=== PATIENT | male | born 1985 | race Caucasian/White ===

== ENCOUNTER 2018-03-31 12:08 | Day surgery (SDC) | payer OTHER ==
[~2018-03-31 12:08] MED LIST: Buffered Lidocaine 0.9% SYRIN* 5 ML/SYR SYRINGE INTRADERM ONE; Famotidine IV* 10 MG/ML 2 ML (20 mg) IV ONE
[2018-03-31] MEDS ORDERED: ceFAZolin 2 GM PREMIX (*) 2 GM/50 ML BAG IVPB ONE (12:11)
[2018-03-31] MEDS ORDERED: ceFAZolin 1 GM ADVAN(*) 1 GM ADDV.VIAL IVPB ONE (12:11)
[2018-03-31] MEDS ORDERED: Famotidine IV* 10 MG/ML 2 ML (20 mg) ONE (12:11)
[2018-03-31] MEDS ORDERED: Insulin LISPRO* 1 UNITS UNIT SUBCUT ONE (12:57)
[2018-03-31] MEDS ORDERED: fentaNYL* 50 MCG/ML 5 ML VIAL (250 MCG VIAL) ONE (13:19)
[2018-03-31] MEDS ORDERED: Midazolam* 1 MG/ML 5 ML VIAL (5 MG) ONE (13:20)
[2018-03-31] MEDS ORDERED: ROPIVACAINE 5 MG/ML 30 ML BTL (0.5%) ONE (13:50)
[2018-03-31] MEDS ORDERED: HYDROcodone/ACETAMIN 5-325 MG* 1 TAB PO PRN (14:02)
[2018-03-31] MEDS ORDERED: fentaNYL* 50 MCG/ML 2 ML VIAL (100 MCG VIAL) IV PRN (14:02)
[2018-03-31] MEDS ORDERED: Naloxone* 0.4 MG/ML 1 ML VIAL IV PRN (14:02)
[2018-03-31] MEDS ORDERED: oxyCODONE/Acetamin 5/325 MG* TAB PO PRN (14:02)
[2018-03-31] MEDS ORDERED: DiMENhydriNATE IV* 50 MG/ML VIAL IV PUSH PRN (14:02)
[2018-03-31] MEDS ORDERED: Propofol* 10 MG/ML 20 ML BTL IV PUSH ONE (15:05)
[2018-03-31] MEDS ORDERED: Lidocaine 2% PF * 5 ML VIAL ONE (15:05)
[2018-03-31 17:24] VITALS: BP 141/91
--- NOTE | 2018-04-01 04:06 | OP ---
DATE OF OPERATION: 03/31/18 - SDS DATE OF : 87 ATTENDING SURGEON: Henry Meier MD PLANT MAINTENANCE TECHNICIAN: Daisy Jesus PA-C PREOPERATIVE DIAGNOSIS: Open infected and partially gangrenous great toe ulcer. POSTOPERATIVE DIAGNOSIS: Open infected and partially gangrenous great toe ulcer. OPERATIVE PROCEDURE: Partial amputation right great toe. DESCRIPTION OF PROCEDURE: Malik was brought to the operating room with ankle Esmarch placed. We numbed up the area of the great toe and made a transverse elliptical incision at the proximal phalanx midportion. We dissected proximally , subcutaneously, and divided the proximal phalanx in its midportion with a microsagittal saw. Cultures were taken at that time we disarticulated the distal portion. We irrigated thoroughly, dropped the tourniquet, and obtained local hemostasis. We then closed dorsal to plantar flaps with 2-0 Vicryl and 3- 0 nylon for the skin and a compression dressing applied. [id number]/[facility] #: [id number] MTDD
== END 2018-03-31 17:40 | disposition home or self-care (01) ==
LOC: OR 12:08
PROVIDERS: ATTEND Orthopaedic Surgery
DX: E11.52 Type 2 diabetes mellitus with diabetic peripheral angiopathy with gangrene (principal); M86.671 Other chronic osteomyelitis, right ankle and foot; Z79.4 Long term (current) use of insulin; I10 Essential (primary) hypertension; K21.9 Gastro-esophageal reflux disease without esophagitis; E78.00 Pure hypercholesterolemia, unspecified; F32.9 Major depressive disorder, single episode, unspecified
CPT/HCPCS: 87070; 87073; 87077; 87205; 88305; 88311; J0690; J2250; J2704; J2795; J3010

== ENCOUNTER 2019-05-13 10:11 | Inpatient (IN) | payer OTHER ==
[2019-05-13] MEDS ORDERED: Ondansetron ODT TAB* 4 MG PO PRN (11:06)
[2019-05-13] MEDS ORDERED: Morphine INJ* 10 MG/ML 1 ML CARPUJECT IV PRN (11:06)
[2019-05-13] MEDS ORDERED: oxyCODONE/Acetamin 5/325 MG* TAB PO PRN (11:06)
[2019-05-13] MEDS ORDERED: diPHENhydraMINE IV* 50 MG/ML 1 ml VIAL (BENADRYL) IV PRN (11:06)
[2019-05-13] MEDS ORDERED: diPHENhydraMINE PO* 25 MG PO PRN (11:06)
[2019-05-13] MEDS ORDERED: Lactated Ringers 1000 ML Bag* 1,000 ML IV SCH (12:00)
--- OUTSIDE RECORDS SUMMARY | 2019-05-13 12:28 | XMS REPORT | Continuity of Care Document ---
:1985 External Reference #:[id number] Author Name Henry Meier M.D. 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 Onset: 07/24/2012 Social History Type Date Description Comments Sex Unknown Tobacco Use Start: Unknown Never Smoked Cigarettes Tobacco Use Start: Unknown Never Smoked Cigars Tobacco Use Start: Unknown Never Smoked A Pipe Smokeless Tobacco Never Used Smokeless Tobacco ETOH Use Denies alcohol use Tobacco Use Start: Unknown Patient has never smoked Recreational Drug Use Denies Drug Use Smoking Status Reviewed: 04/01/19 Patient has never smoked Exercise Type/Frequency Little walking Allergies, Adverse Reactions, Alerts Active Allergies Reaction Severity Comments Date Sulfa rash 07/24/2012 Medications Active Medications SIG Qnty Indications Ordering Date Provider [place] 1 by mouth every 8 42tabs Henry Meier, 12/31/2018 5-325mg hours as needed for M.D. Tablets pain Fluoxetine HCL 1 po qd 30caps Unknown 20mg Capsules Lisinopril 1 po qd 90tabs Eladio Rose, 20mg PA Tablets Simvastatin 1 po qd 90tabs Eladio Rose, 20mg PA Tablets Omeprazole 1 po qd 90caps Eladio Rose, 20mg PA Capsules DR Jenni Dillard daily 3Months Unknown 80U Solution Basaglar Kwikpen inject 30 units Unknown subcutaneously before 100Unit/ML meals Solution Pen-Inject Ibuprofen 200 2 tabs by mouth every Unknown 6 hours as needed for 200mg Tablets pain. Tylenol Extra 2 tabs by mouth every Unknown Strength 6 hours as needed 500mg Tablets Immunizations Description No Information Available Vital Signs Date Vital Result Comment 04/01/2019 12:50pm Height 69 inches 5'9" Weight 280.00 lb Heart Rate 99 /min BP Systolic Sitting 114 mmHg BP Diastolic Sitting 70 mmHg Respiratory Rate 20 /min Pain Level 6 O2 % BldC Oximetry 96 % BMI (Body Mass Index) 41.3 kg/m2 02/25/2019 12:56pm Height 69 inches 5'9" Weight 282.00 lb Heart Rate 101 /min BP Systolic Sitting 118 mmHg BP Diastolic Sitting 76 mmHg Respiratory Rate 18 /min Pain Level 6 O2 % BldC Oximetry 96 % BMI (Body Mass Index) 41.6 kg/m2 Results Test Date Facility Test Result H/L Range Note Body Fluid C&S 12/26/2018 [facility] Body Fluid SEE RESULT [address] [address] Stain [phone] Body Fluid C&S 12/26/2018 [facility] Body Fluid SEE RESULT [address] [place] [address] Stain [phone] Body Fluid C&S 12/24/2018 [facility] Body Fluid SEE RESULT 3, [address] [place] [address] Stain [phone] 1 SEE RESULT BELOW Name: WILBERT CAR : [address]: Henry Meier MD Acct: [id number] Unit: [id number] AGE: 33 Location: Re12/26/18 SEX: M Status: REG REF SPEC: [id number] [place]: 12/26/18-1030 [facility] DR: Henry Meier MD REQ: [id number] RECD: 12/26/180 STATUS: RES OTHR DR: Gwyn Jauregui MD _ SOURCE: JOINT FLUI SPDESC:ANKLE LEFT ORDERED: BF Cult/GS Procedure Result Reported Site Body Fluid Gram Stain Final 12/26/18- 1425 ML 1+ Neutrophils No Organisms Seen Preparation By Direct Smear Body Fluid Culture PENDING * ML - Main Lab . END OF REPORT DEPARTMENT OF PATHOLOGY, [address] [place] [address] Eladio Donaldson M.D. Director [facility] # [id number] 2 SEE RESULT BELOW Name: WILBERT CAR : [address]: Henry Meier MD Acct: [id number] Unit: [id number] AGE: 33 Location: SP Re12/26/18 SEX: M Status: REG REF SPEC: [id number] [place]: 12/26/18-1030 [facility] DR: Jaspal Camarena MD REQ: [id number] RECD: 12/26/18-1210 STATUS: YONI GUZMAN DR: Gwyn Meier MD _ SOURCE: JOINT FLUI SPDESC:ANKLE LEFT ORDERED: KATJA Garcia/KARTIK Procedure Result Reported Site Body Fluid Gram Stain Final 12/26/18- 1425 ML 1+ Neutrophils No Organisms Seen Preparation By Direct Smear Body Fluid Culture Final 12/30/18- 0827 ML No Growth Day 4 * ML - Main Lab . END OF REPORT DEPARTMENT OF PATHOLOGY, [address] [place] [address] Eladio Donaldson M.D. Director [facility] # [id number] 3 SWAB RECIEVED [id number] 4 SEE RESULT BELOW Name: WILBERT CAR : [address]: Henry Meier MD Acct: [id number] Unit: [id number] AGE: 33 Location: [facility] Re12/24/18 SEX: M Status: REG REF SPEC: [id number] NOBLE: 12/24/[address]: Henry Meier MD REQ: [id number] RECD: 12/24/18 STATUS: COMP _ SOURCE: JOINT FLUI SPDES: ORDERED: BF Jose/GS COMMENTS: SWAB RECEIVED WITH FLUID ON IT. [id number] Procedure Result Reported Site Body Fluid Gram Stain Final 12/25/18- 0850 ML No Neutrophils Observed No Organisms Seen Preparation By Direct Smear Body Fluid Culture Final 12/28/18- 0848 ML No Growth Day 4 * ML - Main Lab . END OF REPORT DEPARTMENT OF PATHOLOGY, [address] [place] [address] Eladio Donaldson M.D. Director [facility] # [id number] Procedures Date Code Description Status 01/21/2019 94443 Rad Exam; Foot Comp Completed 12/24/2018 46274 Rad Exam; Foot Limited Completed 12/24/2018 Inject/Drain Joint/Bursa Intermediate W/O US Completed 11/19/2018 48693 Rad Exam; Foot Comp Completed Medical Devices Description No Information Available Encounters Type Date Location Provider Dx Diagnosis Office Visit 02/25/2019 [facility] Cierra Banks.672 Charcot's joint , 1:00p [facility] [employer] [facility]. left ankle and [place] foot Office Visit 02/18/2019 Orthopedic Cierra Banks.672 Charcot's joint , 9:30a [facility] [employer] [facility] [facility] AT [facility]. left ankle and [place] foot Office Visit 01/21/2019 Orthopedic Cierra Banks.672 Charcot's joint , 1:00p [facility] [employer] [facility] AT [facility]. left ankle and [place] foot Office Visit 12/31/2018 Orthopedic Ольга Banks67Candice Charcot's joint , 1:45p [facility] [employer] [facility] AT [facility]. left ankle and [place] foot Office Visit 12/24/2018 Orthopedic Ольга Banks67Candice Charcot's joint , 2:00p [facility] [employer] [facility]. left ankle and [place] foot Office Visit 11/26/2018 Orthopedic Ольга Banks672 Charcot's joint , 10:00a [facility] [employer] [facility] AT [facility]. left ankle and [place] foot Office Visit 11/19/2018 Orthopedic Cierra Banks.672 Charcot's joint , 9:30a [facility] [employer] [facility] AT [facility]. left ankle and [place] foot Assessments Date Code Description Provider 02/25/2019 [id number] Charcot's joint, left ankle and foot Henry Meier M.D. 02/18/2019 Cierra.[email or web address] Charcot's joint, left ankle and foot Henry Meier M.D. 01/21/2019 [email or web address] Charcot's joint, left ankle and foot Henry Meier M.D. 12/31/2018 Cierra.672 Charcot's joint, left ankle and foot Henry Meier M.D. 12/24/2018 Cierra.672 Charcot's joint, left ankle and foot Henry Meier M.D. 11/26/2018 [id number] Charcot's joint, left ankle and foot Henry Meier M.D. 11/19/2018 Flynn4.672 Charcot's joint, left ankle and foot Henry Meier M.D. Plan of Treatment Future Appointment(s):06/03/2019 1:45 pm - Henry Meier M.D. at [facility] [place] Functional Status Description No Information Available Mental Status Description No Information Available Referrals Description No Information Available
--- OUTSIDE RECORDS SUMMARY | 2019-05-13 12:28 | XMS REPORT | Continuity of Care Document ---
:1985 External Reference #:[id number] Author Name Henry Meier M.D. 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 Active Problems Provider Date Acute sanguinous [...] Use Denies Drug Use Smoking Status Reviewed: 05/13/19 Patient has never smoked Exercise Type/Frequency Little walking Allergies, Adverse Reactions, Alerts Active Allergies Reaction Severity Comments Date Sulfa rash 07/24/2012 Medications Active Medications SIG Qnty Indications Ordering Date Provider [place] 1 by mouth every 8 42tabs Henry [...] Unknown subcutaneously before 100Unit/ML meals Solution Pen-Inject Tylenol Extra 2 tabs by mouth every Unknown Strength 6 hours as needed 500mg Tablets Immunizations Description No Information Available Vital Signs Date Vital Result Comment 05/13/2019 8:52am Height 69 inches 5'9" Weight 280.00 lb Heart Rate 103 /min BP Systolic Sitting 124 mmHg BP Diastolic Sitting 74 mmHg Respiratory Rate 18 /min Pain Level 8 O2 % BldC Oximetry 97 % BMI (Body Mass Index) 41.3 kg/m2 04/01/2019 12:50pm Height 69 inches 5'9" Weight 280.00 lb Heart Rate 99 /min BP Systolic Sitting 114 mmHg BP Diastolic Sitting 70 mmHg Respiratory Rate 20 /min Pain Level 6 O2 % BldC Oximetry 96 % BMI (Body Mass Index) 41.3 kg/m2 Results Test Date Facility Test Result H/L Range Note Laboratory test 05/13/2019 [facility] Gram Stain <pending> finding [address] [place] [address] [phone] Body Fluid Crystals <pending> Body Fluid C&S 12/26/2018 [facility] Body Fluid SEE RESULT [address] [place] [address] Stain [phone] Body Fluid C&S 12/26/2018 [facility] Body Fluid SEE RESULT [address] [place] [address] Stain [phone] Body Fluid C&S 12/24/2018 [facility] Body Fluid SEE RESULT 3, [address] [place] [address] Stain [phone] 1 SEE RESULT BELOW Name: WILBERT CAR : [address]: Henry Meier MD Acct: [id number] Unit: [id number] AGE: 33 Location: Re12/26/18 SEX: M Status: REG REF SPEC: [id number] NOBLE: 12/26/18-[address] [facility] [address]: Henry Meier MD REQ: [id number] RECD: 12/26/18 STATUS: RES OTHR DR: Gwyn Jauregui MD _ SOURCE: JOINT FLUI SPDESC:ANKLE LEFT ORDERED: BF Cult/GS Procedure Result Reported Site Body Fluid Gram Stain Final 12/26/18- 1425 ML 1+ Neutrophils No Organisms Seen Preparation By Direct Smear Body Fluid Culture PENDING * ML - Main Lab . END OF REPORT DEPARTMENT OF PATHOLOGY, [address] [place] [address] Eladio Donaldson M.D. Director [facility] # [id number] 2 SEE RESULT BELOW Name: WILBERT CAR : [address]: Henry Meier MD Acct: [id number] Unit: [id number] AGE: 33 Location: SP Re12/26/18 SEX: M Status: REG REF SPEC: [id number] NOBLE: 12/26/18-[address] [facility] [address]: Jaspal Camarena MD REQ: [id number] RECD: 12/26/18-1210 STATUS: YONI GUZMAN DR: Gwyn Meier MD _ SOURCE: JOINT FLUI SPDESC:ANKLE LEFT ORDERED: KATJA Garcia/KARTIK Procedure Result Reported Site Body Fluid Gram Stain Final 12/26/18- 1425 ML 1+ Neutrophils No Organisms Seen Preparation By Direct Smear Body Fluid Culture Final 12/30/18- 0827 ML No Growth Day 4 * ML - Main Lab . END OF REPORT DEPARTMENT OF PATHOLOGY, [address] [place] [address] Eladio Donaldson M.D. Director [facility] # [id number] 3 SWAB RECIEVED [id number] SEE RESULT BELOW Name: WILBERT CAR : [address]: Henry Meier MD Acct: [id number] Unit: [id number] AGE: 33 Location: [facility] Re12/24/18 SEX: M Status: REG REF SPEC: [id number] NOBLE: 12/24/18-[address] [facility] [address]: Henry Meier MD REQ: [id number] RECD: 12/24/18 STATUS: COMP _ SOURCE: JOINT FLUI SPDESC: ORDERED: BF Cult/GS COMMENTS: SWAB RECEIVED WITH FLUID ON IT. [id number] Procedure Result Reported Site Body Fluid Gram Stain Final 12/25/18- 50 ML No Neutrophils Observed No Organisms Seen Preparation By Direct Smear Body Fluid Culture Final 12/28/18- 48 ML No Growth Day 4 * ML - Main Lab . END OF REPORT DEPARTMENT OF PATHOLOGY, [address] [place] [address] Eladio Donaldson M.D. Director [facility] # [id number] Procedures Date Code Description Status 01/21/2019 68199 Rad Exam; Foot Comp Completed 12/24/2018 19711 Rad Exam; Foot Limited Completed 12/24/2018 97458 Inject/Drain Joint/Bursa Intermediate W/O US Completed 11/19/2018 38369 Rad Exam; Foot Comp Completed Medical Devices Description No Information Available Encounters Type Date Location Provider Dx Diagnosis Office Visit 04/01/2019 [facility] M14.672 Charcot 's joint, 1:00p at [facility].Julianna left ankle and foot Office Visit 02/25/2019 [facility] Flynn Benton4.672 [facility] 02/18/2019 [facility] Yecenia Meier M14.672 Charcot 's joint, 9:30a at [facility].Ronit left ankle and foot Office Visit 01/21/2019 [facility]ecenia Meier M14.672 [facility] Visit 12/31/2018 [facility] Flynn Benton4.672 Charcot 's joint, 1:45p at [facility].[place]. left ankle and foot Office Visit 12/24/2018 [facility] Yecenia Meier M14.672 Charcot 's joint, 2:00p at [facility].Ronit left ankle and foot Office Visit 11/26/2018 [facility] Yecenia Meier, M14.672 Charcot 's joint, 10:00a at [facility].Lawanda. left ankle and foot Office Visit 11/19/2018 [facility] Yecenia Meier M14.672 [facility]ot 's joint[facility] Assessments Date Code Description Provider 04/01/2019 [email or web address] Charcot's joint, left ankle and foot Henry Meier M.D. 02/25/2019 Flynn4.672 Charcot's joint, left ankle and foot Henry Meier M.D. 02/18/2019 Flynn4.672 Charcot's joint, left ankle and foot Henry Meier M.D. 01/21/2019 Flynn4.672 Charcot's joint, left ankle and foot Henry Meire M.D. 12/31/2018 M14.672 Charcot's joint, left ankle and foot Henry Meier M.D. 12/24/2018 M14.672 Charcot's joint, left ankle and foot Henry Meier M.D. 11/26/2018 M14.672 Charcot's joint, left ankle and foot Henry Meier M.D. 11/19/2018 M14.672 Charcot's joint, left ankle and foot Henry Meier M.D. Plan of Treatment Future Appointment(s):06/03/2019 1:45 pm - Henry Meier M.D. at [facility] Functional Status Description No Information Available Mental Status Description No Information Available Referrals Description No Information Available
[2019-05-13] MEDS ORDERED: ceFAZolin VIAL(*) 2 GM in NS 0.9% 100 ML* 100 ML IVPB SCH (13:00)
[2019-05-13 13:33] LABS: Hematocrit 35 % (42-52); Hemoglobin 11.8 g/dL (14.0-18.0); Mean Corpuscular HGB Conc 34 g/dL (31-36); Mean Corpuscular Hemoglobin 28 pg (27-31); Mean Corpuscular Volume 81 fL (80-94); Mean Platelet Volume 8.4 fL (7.4-10.4); Platelet Count 212 10^3/uL (150-450); Red Blood Count 4.28 10^6 /uL (4.18-5.48); Red Cell Distribution Width 13 % (10-15); White Blood Count 10.9 10^3/uL (3.5-10.8)
[2019-05-13] MEDS: traMADol TAB* 50 MG PO PRN (13:40)
[2019-05-13 13:42] LABS: Activated Partial Thrombo Time 36.8 seconds (26.0-38.0); INR 1.33 (0.82-1.09)
--- NOTE | 2019-05-13 13:42 | HP ---
HISTORY AND PHYSICAL: DATE OF ADMISSION: 05/13/19 HISTORY OF PRESENT ILLNESS: Malik is a 34-year-old type 2 diabetic with a history of hypertension, hypercholesterolemia, and Charcot arthropathy, left hindfoot. The Charcot's changes have been going on for greater than a year now and because of some diffuse MRI changes in the spring, he had 2 different aspirations of the hindfoot to rule out infection. One of these under ultrasound fco white. None of these aspirate showed any Gram stain positive for any organisms or any growth after 4 to 5 days of culture. Malik has gone on to have progressive fracturing and deformity of the hindfoot from presumed Charcot arthropathy. He has been casted in a total contact cast and braced in a solid ankle AFO and was doing well being pain free with no significant swelling until last 3 days when he presented to the emergency room with acute acute swelling and increasing pain. The radiographs revea led a fracture to the neck of the talus, which had had edema, edematous changes and some erosive hand ges previously on MRI and a largely swollen effusion at the ankle. Malik has also complained of so me increasing pain and some chills, but no anibal fevers. He is seen today in the office with an effu maciej at the left hindfoot, which is aspirated sterilely. We obtained 30 cc of cloudy fluid, not over tly purulent, but cloudy straw-colored fluid. This was sent for CBC, culture, Gram stain, crystals, and culture and sensitivity. Given the large effusion in the hindfoot and recurring effusions, which are not frankly bloody at this time in time, I have recommended that Malik be admitted to the hosp ital with an infectious disease consult, lab workup, hospitalist consult, and then an open debridemen t, irrigation of this hindfoot area with some bone cultures, possible bone debridement and intraopera tive cultures. This will be scheduled today the admission and possibly surgery tomorrow. MEDICATIONS: Malik has the following medications currently: 1. He is on [place] as needed for pain. 2. He is on fluoxetine 20 mg per day. 3. Lisinopril 20 mg per day. 4. Simvastatin 20 mg per day. 5. Omeprazole 20 mg per day. 6. He is on Lantus SoloSTAR 80 units daily. 7. He is on Basaglar KwikPen 100 units per mL with 30 units subcu before meals. ALLERGIES: He has an allergy to SULFA. PAST SURGICAL HISTORY: Hernia repair and toe amputation for osteomyelitis. FAMILY HISTORY: Noncontributory, although mother does have Charcot changes in her foot. SOCIAL HISTORY: Noncontributory. He lives with his mother and father. He is not a smoker. He does not drink alcohol. He does not do very much in terms of any physical exercise. REVIEW OF SYSTEMS: Has some chills. No chest pain, shortness of breath. No significant abdominal d istress in terms of diarrhea or constipation or abdominal pain. No dizziness. He does have some per ipheral neuropathy, some mil depression. No anxiety. PHYSICAL EXAMINATION GENERAL: Malik is at his baseline. No acute distress. Pleasant, alert, appropriate mood and affe ct. He is a heavy set gentleman of 5 feet 9 inches, 280 pounds. VITAL SIGNS: Blood pressure 124/74. He is afebrile. NECK: He has a supple neck. LUNGS: His chest exam is clear without wheezing noted. HEART: Cardiac exam shows a regular rate, somewhat tachycardic. ABDOMEN: Large, doughy, soft, nontender. GENITOURINARY: Deferred. EXTREMITIES: Lower extremity shows him to have a warm foot with intact skin envelope. No breaks in the skin noted. He has some decreased slight touch sensation globally below the ankle area. He has a large effusion, which is nonerythematous, not particularly warm at the hindfoot. We have aspirated that today under sterile conditions and obtained 30 cc of cloudy yellow colored fluid, not pink or f oul smelling. This is sent for the above labs. Also, recent radiographs from the emergency room ove r the weekend showed an ongoing Charcot arthropathy or at least Charcot changes in the hindfoot, now with a displaced talar neck fracture. NEUROLOGIC: Deferred. IMPRESSION: These changes could at this point be secondary to osteomyelitis, but could also be cons istent with further Charcot arthropathy. Despite 2 previous aspirates negative for infection, Maryan bruner at this point presents with a more acute process with increased swelling more than I have ever seen before and this dramatic fracture. With the aspirate of the 30 cc of cloudy fluid, which in my impr ession, we could have aspirated more fluid. I would recommend an open debridement, cultures and bone debridement. [id number]/[facility] #: [id number]
[2019-05-13 13:52] LABS: EGFR African American 85.2 (>60); EGFR Non-African American 70.4 (>60)
[2019-05-13 14:17] LABS: ABS Basophils 0.1 10^3/ul (0-0.2); ABS Lymphocytes 1.3 10^3/ul (1.0-4.8); ABS Monocytes 1.8 10^3/ul (0-0.8); ABS Neutrophils 7.6 10^3/ul (1.5-7.7); Eosinophil % 0.3 %; Lymphocyte % 12.2 %; Nucleated Red Blood Cells % 0.1
[2019-05-13 14:26] LABS: C Reactive Protein 333.27 mg/L (<8.01)
[2019-05-13] MEDS: Morphine INJ* 2 MG/ML 1 ML SYRINGE (TWO MG - NEW SYRINGE VERSION) IV PRN ×3 (15:05→22:58)
[2019-05-13] MEDS ORDERED: Buffered Lidocaine 1% SYRIN* 1 ML/SYRINGE INTRADERM ONE (15:55)
[2019-05-13 16:35] LABS: Erythrocyte Sed Rate 119 mm/Hr (0-14)
[2019-05-13] MEDS ORDERED: Insulin LISPRO* 1 UNITS UNIT SUBCUT ONE (16:52)
[2019-05-13] MEDS ORDERED: Dextrose 50% VIAL 50 ml IV PUSH PRN ×2 (16:52→18:04)
--- NOTE | 2019-05-13 17:52 | CONSULT ---
Subjective Date of Service: 05/13/19 Interval History: HOSPITALIST CONSULTATION REPORT Requested by Dr Meier PCP: Jacob PARKER Reason: diabetes management HPI: Mr Car is a 34yo M with PMH of morbid obesity with BMI 41.8, insulin dependent diabetes, HTN, HLD, GERD, Charcot arthropathy, who presented to Dr Meier's office with c/o left foot pain and edema, s/p aspiration of yellow fluid. He was admitted to the medical floor for planed open debridement, cultures and bone debridement. Hospitalist service was consulted to help with management of his diabetes. Patient states he was diagnosed with diabetes when he was 22yo and "never got it totally under control". He states his highest glucose at home is around 150, but states his last A1c was 12. He denies fever, chills, N/V/D, chest pain, dyspnea, or palpitations. Family History: Findings - Father has alpha 1 atritrypsin deficiency with COPD, mother has diabetes Social History: Findings - No h/o tobacco, alcohol or drug use. Single, lives with his parents. SDM is his mother Manuela Car phone #[phone] Past Medical History: Findings - morbid obesity with BMI 41.8, insulin dependent diabetes, HTN, HLD, GERD, Charcot arthropathy, anxiety, s/p right hallux amputation Review of Systems - Measurements Intake and Output: Intake and Output Last 24 Hours 05/11/19 05/12/19 05/13/19 05/14/19 06:59 06:59 06:59 06:59 Intake Total 590 Output Total 600 Balance -10 Weight 283 lb Intake: IVPB 110 ABX - CEFAZOLIN 110 Oral 480 Output: Urine 600 Other: Estimated Void Small Date of Last Bowel 05/12/19 Movement # Bowel Movements 0 # Voids 1 - Review of Systems General Comments: 14 ROS performed and all the pertinent negative and positive findings are in the HPI. Objective Active Medications: Acetaminophen (Tylenol Tab*) 650 mg PO Q6H PRN PRN Reason: MILD PAIN or TEMP > 100.4 Dextrose (Dextrose 50% Vial 50 Ml*) 25 ml IV PUSH .FOR FS < 60 - SS PRN PRN Reason: FS < 60 Diphenhydramine HCl (Benadryl Iv*) 12.5 mg IV Q6H PRN PRN Reason: PRURITIS Diphenhydramine HCl (Benadryl Po*) 25 mg PO Q6H PRN PRN Reason: ITCHING Docusate Sodium (Colace Cap*) 100 mg PO BID PRN PRN Reason: CONSTIPATION Heparin Sodium (Porcine) (Heparin Vial(*)) 5,000 units SUBCUT Q12HR REPLACED BY [facility] Stop: 05/13/19 23:59 Lactated Ringer's (Lactated Ringers 1000 Ml Bag*) 1,000 mls @ 100 mls/hr IV PER RATE REPLACED BY [facility] Last Admin: 05/13/19 15:04 Dose: 100 mls/hr Cefazolin Sodium 2 gm/ Sodium (Chloride) 100 mls @ 200 mls/hr IVPB Q8H REPLACED BY [facility] Last Admin: 05/13/19 13:37 Dose: 200 mls/hr Lactated Ringer's (Lactated Ringers 1000 Ml Bag*) 1,000 mls @ 125 mls/hr IV PER RATE REPLACED BY [facility] Influenza Virus Vaccine (Fluarix Quad [id number] Syr) 0.5 ml IM .ONCE ONE Stop: 05/14/19 09:01 Morphine Sulfate (Morphine Inj (Syringe))*) 2 mg IV Q2H PRN PRN Reason: PAIN - SEVERE Last Admin: 05/13/19 17:04 Dose: 2 mg Ondansetron HCl (Zofran Inj*) 4 mg IV Q6H PRN PRN Reason: NAUSEA Ondansetron HCl (Zofran Odt Tab*) 4 mg PO Q6H PRN PRN Reason: NAUSEA/VOMITING Oxycodone/Acetaminophen (Percocet 5/325 Tab*) 1 tab PO Q3H PRN PRN Reason: PAIN - MODERATE Oxycodone/Acetaminophen (Percocet 5/325 Tab*) 2 tab PO Q3H PRN PRN Reason: PAIN - MODERATE Tramadol HCl (Ultram*) 50 mg PO Q6H PRN PRN Reason: PAIN - MODERATE Last Admin: 05/13/19 13:40 Dose: 50 mg Vital Signs - 8 hr 05/13/19 05/13/19 05/13/19 12:41 13:40 15:05 Temperature 96.9 F Pulse Rate 108 Respiratory 20 16 18 Rate Blood Pressure 135/84 (mmHg) O2 Sat by Pulse 96 Oximetry 05/13/19 05/13/19 05/13/19 15:15 16:10 17:04 Temperature 98.2 F Pulse Rate 100 Respiratory 16 16 16 Rate Blood Pressure 137/78 (mmHg) O2 Sat by Pulse 94 Oximetry 05/13/19 17:09 Temperature Pulse Rate Respiratory 16 Rate Blood Pressure (mmHg) O2 Sat by Pulse Oximetry Oxygen Devices in Use Now: None Appearance: Pleasant morbid obese gentleman lying in bed in NAD Eyes: No Scleral Icterus Ears/Nose/Mouth/Throat: Mucous Membranes Moist Neck: Trachea Midline Respiratory: Symmetrical Chest Expansion and Respiratory Effort, Clear to Auscultation Cardiovascular: NL Sounds; No Murmurs; No JVD, RRR Abdominal: NL Sounds; No Tenderness; No Distention Extremities: - - Left ankle and deformity, mild warmth. S/p right hallux amputation Neurological: Alert and Oriented x 3, NL Muscle Strength and Tone Result Diagrams: 05/13/19 13:21 05/13/19 13:21 Assessment/Plan - Billing Assessment: Mr Car is a 34yo M with PMH of morbid obesity with BMI 41.8, insulin dependent diabetes, HTN, HLD, GERD, Charcot arthropathy, anxiety; admitted by Dr Meier for planed open debridement, cultures and bone debridement of left ankle/Charcot arthropaty. 1. Left ankle Charcot arthropathy with probable infection: - Management as per Ortho. Already on Cefazolin and ID consult requested. 2. Insulin dependent diabetes: - Start Lantus and Lispro SS. - Check A1c. 3. HTN: - Controlled. - Continue Lisinopril. 4. GERD: - Continue Omeprazole. 5. DVT prophylaxis: - SQ heparin. Aproximately 45 minutes were spent with patient interview, medical records review, and physical examination to complete this admission; more than half of this time was spent face to face with patient and coordination of care. The Hospitalist service will continue to follow with you.
[2019-05-13] MEDS: oxyCODONE/Acetamin 5/325 MG* TAB PO PRN (18:44)
[2019-05-13] MEDS: Cefepime 2 GM in Dextrose(*) 2 GM/50 ML BAG IV SCH (18:54)
[2019-05-13] MEDS ORDERED: Vancomycin per Pharmacy* NOTE FOLLOW UP SCH (19:00)
[2019-05-13] MEDS ORDERED: Vancomycin(*) 2,000 MG in NS 0.9% 500 ML* 500 ML IVPB ONE (19:00)
--- NOTE | 2019-05-13 19:24 | PN ---
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 For the last 6 months, he has had increasing swelling there with a fracture of the navicular primarily. He has been treated with total contact casting and boot immobilization and most recently a solid contact AFO. He has also had 2 different aspirations of the fluid collection in the hindfoot, one under ultrasound, one under direct palpation of fluid collection in the office, both these drainage procedures yielded no organisms seen and negative culture; however, most recently for the last couple of days, he has had markedly increased swelling and acute onset of pain in the hindfoot and was seen in the emergency room over the weekend with a fracture through the neck of the talus and large effusion. Today in the office, we drained 30 cc of cloudy yellow fluid, not foul smelling or thick, purulent material, but definitely markedly cloudy copious amount of fluid. This was sent for all the appropriate tests. Malik is admitted to medical service with Orthopedic consultation with a game plan being n.p.o. after midnight tonight and then an irrigation and debridement of this large effusion in this hindfoot. We are hoping to control an infection should that be going on currently and also obtain some bone biopsies for definitive diagnostic procedure. Orthopedics will continue to follow thereafter as well. [id number]/CPS #: [id number] MIKKI
[2019-05-13] MEDS: Acetaminophen TAB* 325 MG PO PRN (20:14)
[2019-05-13] MEDS ORDERED: Heparin VIAL(*) 5000 UNITS/ML VIAL (FIVE THOUSAND) SUBCUT SCH (21:00)
[2019-05-13] MEDS: Insulin LISPRO* 1 UNITS UNIT SUBCUT SCH (22:25)
[2019-05-13] MEDS: Insulin GLARGINE(*) 1 UNITS UNIT SUBCUT SCH (22:26)
[2019-05-14] MEDS: Morphine INJ* 2 MG/ML 1 ML SYRINGE (TWO MG - NEW SYRINGE VERSION) IV PRN ×4 (03:28→22:05)
[2019-05-14] MEDS: Cefepime 2 GM in Dextrose(*) 2 GM/50 ML BAG IV SCH ×2 (05:56→18:46)
[2019-05-14] MEDS ORDERED: Lactated Ringers 1000 ML Bag* 1,000 ML IV SCH (06:00)
[2019-05-14 06:19] LABS: BUN/Creatinine Ratio 19.8 (8-20); Calcium 8.8 mg/dL (8.6-10.3); EGFR African American 97.4 (>60); EGFR Non-African American 80.5 (>60); Potassium 3.9 mmol/L (3.5-5.0)
[2019-05-14] MEDS: Vancomycin(*) 1,250 MG in NS 0.9% 250 ML* 250 ML IVPB SCH ×3 (08:17→22:06)
[2019-05-14] MEDS: Lisinopril TAB* 10 MG PO SCH (08:17)
[2019-05-14] MEDS: Insulin LISPRO* 1 UNITS UNIT SUBCUT SCH ×4 (09:33→22:06)
[2019-05-14] MEDS: Influenza VAC *QUAD* 2019-20* 0.5 ML SYRINGE IM ONE (09:33)
[2019-05-14] MEDS: traMADol TAB* 50 MG PO PRN ×2 (10:32→19:20)
[2019-05-14] MEDS ORDERED: Dextrose 50% VIAL 50 ml IV PUSH PRN (12:43)
[2019-05-14] MEDS ORDERED: Insulin LISPRO* 1 UNITS UNIT SUBCUT ONE (12:43)
--- NOTE | 2019-05-14 13:17 | PN ---
Subjective Date of Service: 05/14/19 Interval History: HOSPITALIST PROGRESS NOTE Patient seen and examined at bedside. Care reviewed and d/w Jennifer Vegas RN. He offers no new complaints today. Rates his left ankle pain at 4/10. Denies CP, palpitations, or dyspnea. Family History: Unchanged from Admission Social History: Unchanged from Admission Past Medical History: Unchanged from Admission Objective Active Medications: Acetaminophen (Tylenol Tab*) 650 mg PO Q6H PRN PRN Reason: MILD PAIN or TEMP > 100.4 Last Admin: 05/13/19 20:14 Dose: 650 mg Dextrose (Dextrose 50% Vial 50 Ml*) 25 ml IV PUSH .FOR FS < 60 - SS PRN PRN Reason: FS < 60 Diphenhydramine HCl (Benadryl Iv*) 12.5 mg IV Q6H PRN PRN Reason: PRURITIS Diphenhydramine HCl (Benadryl Po*) 25 mg PO Q6H PRN PRN Reason: ITCHING Docusate Sodium (Colace Cap*) 100 mg PO BID PRN PRN Reason: CONSTIPATION Lactated Ringer's (Lactated Ringers 1000 Ml Bag*) 1,000 mls @ 100 mls/hr IV PER RATE [facility] Last Admin: 05/13/19 15:04 Dose: 100 mls/hr Lactated Ringer's (Lactated Ringers 1000 Ml Bag*) 1,000 mls @ 125 mls/hr IV PER RATE [facility] Last Admin: 05/14/19 12:07 Dose: 125 mls/hr Cefepime HCl (Maxipime 2 Gm In Dextrose Duplex (*)) 2 gm in 50 mls @ 100 mls/ hr IV Q12H [facility] Last Admin: 05/14/19 05:56 Dose: 100 mls/hr Vancomycin HCl 1,250 mg/ (Sodium Chloride) 250 mls @ 166.667 mls/hr IVPB Q8H [facility] Last Admin: 05/14/19 08:17 Dose: 166.667 mls/hr Influenza Virus Vaccine (Fluarix Quad [id number] Syr) 0.5 ml IM .ONCE ONE Stop: 05/15/19 09:01 Last Admin: 05/14/19 09:33 Dose: Not Given Insulin Glargine (Lantus(*)) 20 units SUBCUT BEDTIME [facility] Last Admin: 05/13/19 22:26 Dose: 20 units Insulin Human Lispro (Humalog*) 0 units SUBCUT ACHS [facility]; Protocol Last Admin: 05/14/19 13:02 Dose: Not Given Lisinopril (Prinivil Tab*) 10 mg PO DAILY [facility] Last Admin: 05/14/19 08:17 Dose: 10 mg Morphine Sulfate (Morphine Inj (Syringe))*) 2 mg IV Q2H PRN PRN Reason: PAIN - SEVERE Last Admin: 05/14/19 08:17 Dose: 2 mg Ondansetron HCl (Zofran Inj*) 4 mg IV Q6H PRN PRN Reason: NAUSEA Ondansetron HCl (Zofran Odt Tab*) 4 mg PO Q6H PRN PRN Reason: NAUSEA/VOMITING Oxycodone/Acetaminophen (Percocet 5/325 Tab*) 1 tab PO Q3H PRN PRN Reason: PAIN - MODERATE Oxycodone/Acetaminophen (Percocet 5/325 Tab*) 2 tab PO Q3H PRN PRN Reason: PAIN - MODERATE Last Admin: 05/13/19 18:44 Dose: 2 tab Pharmacy Consult (Vancomycin Per Pharmacy*) 1 note FOLLOW UP .VANC PER PHARMACY [facility]; Protocol Pharmacy Profile Note (Vancomycin Trough Check) 1 note FOLLOW UP 0530 ONE Stop: 05/15/19 05:31 Tramadol HCl (Ultram*) 50 mg PO Q6H PRN PRN Reason: PAIN - MODERATE Last Admin: 05/14/19 10:32 Dose: 50 mg Vital Signs - 8 hr 05/14/19 05/14/19 05/14/19 07:25 08:00 08:17 Temperature 98.2 F Pulse Rate 87 Respiratory 16 19 16 Rate Blood Pressure 135/83 (mmHg) O2 Sat by Pulse 87 Oximetry 05/14/19 05/14/19 05/14/19 09:15 10:32 11:15 Temperature 98 F Pulse Rate 95 Respiratory 16 17 16 Rate Blood Pressure 109/66 (mmHg) O2 Sat by Pulse 89 Oximetry 05/14/19 05/14/19 12:09 12:30 Temperature Pulse Rate Respiratory 16 Rate Blood Pressure (mmHg) O2 Sat by Pulse 95 Oximetry Oxygen Devices in Use Now: None Appearance: Morbid obese gentleman sitting up in bed in [facility]. Eyes: No Scleral Icterus Ears/Nose/Mouth/Throat: Mucous Membranes Moist Neck: Trachea Midline Respiratory: Symmetrical Chest Expansion and Respiratory Effort, Clear to Auscultation Cardiovascular: NL Sounds; No Murmurs; No JVD, RRR Abdominal: NL Sounds; No Tenderness; No Distention - morbid obese Extremities: - - Left ankle edema and warmth, tender to palpation Neurological: Alert and Oriented x 3, NL Muscle Strength and Tone Result Diagrams: 05/13/19 13:21 05/14/19 05:39 Assess/Plan/Problems-Billing Assessment: Mr Car is a 34yo M with PMH of morbid obesity with BMI 41.8, insulin dependent diabetes, HTN, HLD, GERD, Charcot arthropathy, anxiety; admitted by Dr Meier for planed open debridement, cultures and bone debridement of left ankle/Charcot arthropaty. - Patient Problems (1) Septic arthritis Comment: - Left ankle Charcot arthropathy/septic arthritis. - Culture from fluid aspirated as outpatient positive for MRSA. - Continue Vancomycin. - ID consult requested. - EKG shows NSR at 90bpm (not Afib) with no acute ischemic changes. RCRI is 1 predcting a 1-1.3% risk of MACE. Patient is optimized for proposed procedure ( ankle wash out). (2) Type 2 diabetes mellitus Comment: - Chronically uncontrolled with HbA1c 12. - Increase Lantus, continue Lispro SS, and add Lispro carb coverage. - Endocrinology consult. (3) HTN (hypertension) Comment: - Controlled. - Continue Lisinopril. (4) DVT prophylaxis Comment: - Heparin after surgery if Ortho agrees. (5) Full code status Status and Disposition: Hospitalist service will continue to follow with you.
[2019-05-14] MEDS ORDERED: Lidocaine 1% INJ* 10 MG/ML 30 ML SDV ONE (15:09)
[2019-05-14] MEDS ORDERED: Bupivacaine 0.5%* 50 ML MDV VIAL ONE (15:09)
[2019-05-14] MEDS ORDERED: Naloxone* 0.4 MG/ML 1 ML VIAL IV PRN ×2 (15:21→17:02)
--- NOTE | 2019-05-14 15:37 | CONSULT ---
Consult Consult: [facility] Brief Inpatient Consult Note Date of Consult: 05/13/19 Reason for Consult: hyperglycemia Reason for Admission: Charcot arthropathy of the foot ASSESSMENT: 34 yo M with uncontrolled, insulin-resistant type 2 diabetes complicated by severe neuropathy and Charcot arthropathy. He has been unable to achieve glycemic control with basal/bolus insulin regimen >1 unit/kg/day, suggesting a syndrome of severe insulin resistance or non-adherence to insulin therapy. I recommend changing to the insulin regimen below, which can be further adjusted or consolidated to a 70/30 regimen at time of discharge. PLAN: - if patient is NPO: - regular insulin 16 units Q6H - add 2 units if BG>150 - add 4 units if BG>200 - add 6 units if BG>250 - add 8 units if BG>300 - if patient is eating: - regular insulin 16 units with meals - add 4 units if BG>200 - add 8 units if BG>250 - add 12 units if BG>300 - NPH insulin 24 units twice daily - call [phone] with questions SUBJECTIVE: Patient not available at time of this note. History obtained from chart. Medications Prior to Admission: Acetaminophen [Acetaminophen Extra Strength] 2 tab PO Q6H PRN 03/27/18 [History Confirmed 12/26/18] Fluoxetine HCl 40 mg PO QAM 03/27/18 [History Confirmed 12/26/18] Insulin LISPRO* [HumaLOG*] 20 units SUBCUT ACHS 03/27/18 [History Confirmed ] Lisinopril 20 mg PO QAM 03/27/18 [History Confirmed 12/26/18] Omeprazole CAP (NF) [Prilosec CAP* 20 MG] 40 mg PO QAM 03/27/18 [History Confirmed 12/26/18] metFORMIN* [Glucophage 1000 MG TAB *] 1,000 mg PO BID 03/27/18 [History Confirmed 12/26/18] Basaglar Kwikpen U-100 30 units SUBCUT BEDTIME 12/26/18 [History Confirmed 12/26] Inpatient Medications: Acetaminophen (Tylenol Tab*) 650 mg PO Q6H PRN PRN Reason: MILD PAIN or TEMP > 100.4 Last Admin: 05/13/19 20:14 Dose: 650 mg Dextrose (Dextrose 50% Vial 50 Ml*) 25 ml IV PUSH .FOR FS < 60 - SS PRN PRN Reason: FS < 60 Diphenhydramine HCl (Benadryl Iv*) 12.5 mg IV Q6H PRN PRN Reason: PRURITIS Diphenhydramine HCl (Benadryl Po*) 25 mg PO Q6H PRN PRN Reason: ITCHING Docusate Sodium (Colace Cap*) 100 mg PO BID PRN PRN Reason: CONSTIPATION Lactated Ringer's (Lactated Ringers 1000 Ml Bag*) 1,000 mls @ 100 mls/hr IV PER RATE [facility] Last Admin: 05/13/19 15:04 Dose: 100 mls/hr Lactated Ringer's (Lactated Ringers 1000 Ml Bag*) 1,000 mls @ 125 mls/hr IV PER RATE [facility] Last Admin: 05/14/19 12:07 Dose: 125 mls/hr Cefepime HCl (Maxipime 2 Gm In Dextrose Duplex (*)) 2 gm in 50 mls @ 100 mls/ hr IV Q12H [facility] Last Admin: 05/14/19 05:56 Dose: 100 mls/hr Vancomycin HCl 1,250 mg/ (Sodium Chloride) 250 mls @ 166.667 mls/hr IVPB Q8H [facility] Last Admin: 05/14/19 14:34 Dose: 166.667 mls/hr Influenza Virus Vaccine (Fluarix Quad [id number] Syr) 0.5 ml IM .ONCE ONE Stop: 05/15/19 09:01 Last Admin: 05/14/19 09:33 Dose: Not Given Insulin Glargine (Lantus(*)) 20 units SUBCUT BEDTIME [facility] Last Admin: 05/13/19 22:26 Dose: 20 units Insulin Human Lispro (Humalog*) 0 units SUBCUT ACHS [facility]; Protocol Last Admin: 05/14/19 13:02 Dose: Not Given Lisinopril (Prinivil Tab*) 10 mg PO DAILY [facility] Last Admin: 05/14/19 08:17 Dose: 10 mg Morphine Sulfate (Morphine Inj (Syringe))*) 2 mg IV Q2H PRN PRN Reason: PAIN - SEVERE Last Admin: 05/14/19 08:17 Dose: 2 mg Naloxone HCl (Narcan*) 0.08 mg IV Q2M PRN PRN Reason: severe induced resp depression Ondansetron HCl (Zofran Inj*) 4 mg IV Q6H PRN PRN Reason: NAUSEA Ondansetron HCl (Zofran Odt Tab*) 4 mg PO Q6H PRN PRN Reason: NAUSEA/VOMITING Oxycodone/Acetaminophen (Percocet 5/325 Tab*) 1 tab PO Q3H PRN PRN Reason: PAIN - MODERATE Oxycodone/Acetaminophen (Percocet 5/325 Tab*) 2 tab PO Q3H PRN PRN Reason: PAIN - MODERATE Last Admin: 05/13/19 18:44 Dose: 2 tab Pharmacy Consult (Vancomycin Per Pharmacy*) 1 note FOLLOW UP .VANC PER PHARMACY [facility]; Protocol Pharmacy Profile Note (Vancomycin Trough Check) 1 note FOLLOW UP 529 ONE Stop: 05/15/19 05:31 Tramadol HCl (Ultram*) 50 mg PO Q6H PRN PRN Reason: PAIN - MODERATE Last Admin: 05/14/19 10:32 Dose: 50 mg Allergies/Intolerances: sulfa, adhesive OBJECTIVE: Temp Pulse Resp BP Pulse Ox 98.6 F 97 18 142/80 100 05/14/19 14:52 05/14/19 14:52 05/14/19 14:52 05/14/19 14:52 05/14/19 14:52 Glucose Results 05/13/19 21:00 386 05/14/19 07:30 300 05/14/19 11:30 246 WBC 10.9 10^3/uL (3.5-10.8) H 05/13/19 13:21 RBC 4.28 10^6 /uL (4.18-5.48) 05/13/19 13:21 Hgb 11.8 g/dL (14.0-18.0) L 05/13/19 13:21 Hct 35 % (42-52) L 05/13/19 13:21 MCV 81 fL (80-94) 05/13/19 13:21 MCH 28 pg (27-31) 05/13/19 13:21 MCHC 34 g/dL (31-36) 05/13/19 13:21 RDW 13 % (10-15) 05/13/19 13:21 Plt Count 212 10^3/uL (150-450) 05/13/19 13:21 MPV 8.4 fL (7.4-10.4) 05/13/19 13:21 Neut % (Auto) 70.1 % 05/13/19 13:21 Lymph % (Auto) 12.2 % 05/13/19 13:21 [place] % (Auto) 16.6 % 05/13/19 13:21 Eos % (Auto) 0.3 % 05/13/19 13:21 Baso % (Auto) 0.8 % 05/13/19 13:21 Absolute Neuts (auto) 7.6 10^3/ul (1.5-7.7) 05/13/19 13:21 Absolute Lymphs (auto) 1.3 10^3/ul (1.0-4.8) 05/13/19 13:21 Absolute Monos (auto) 1.8 10^3/ul (0-0.8) H 05/13/19 13:21 Absolute Eos (auto) 0.0 10^3/ul (0-0.6) 05/13/19 13:21 Absolute Basos (auto) 0.1 10^3/ul (0-0.2) 05/13/19 13:21 Absolute Nucleated RBC 0.0 10^3/ul 05/13/19 13:21 Nucleated RBC % 0.1 05/13/19 13:21 ESR 119 mm/Hr (0-14) H 05/13/19 13:21 INR (Anticoag Therapy) 1.33 (0.82-1.09) H 05/13/19 13:21 APTT 36.8 seconds (26.0-38.0) 05/13/19 13:21 Sodium 130 mmol/L (135-145) L 05/14/19 05:39 Potassium 3.9 mmol/L (3.5-5.0) 05/14/19 05:39 Chloride 94 mmol/L (101-111) L 05/14/19 05:39 Carbon Dioxide 30 mmol/L (22-32) 05/14/19 05:39 Anion Gap 6 mmol/L (2-11) 05/14/19 05:39 BUN 21 mg/dL (6-24) 05/14/19 05:39 Creatinine 1.06 mg/dL (0.67-1.17) 05/14/19 05:39 Est GFR ( Amer) 97.4 (>60) 05/14/19 05:39 Est GFR (Non-Af Amer) 80.5 (>60) 05/14/19 05:39 BUN/Creatinine Ratio 19.8 (8-20) 05/14/19 05:39 Glucose 262 mg/dL (70-100) H 05/14/19 05:39 POC Glucose (mg/dL) 222 mg/dL (70-100) H 05/14/19 15:01 Hemoglobin A1c 12.0 % (4.0-5.6) H 05/14/19 05:39 Lactic Acid 0.8 mmol/L (0.5-2.0) 05/14/19 08:33 Calcium 8.8 mg/dL (8.6-10.3) 05/14/19 05:39 C-Reactive Protein 333.27 mg/L (<8.01) H 05/13/19 13:21
[2019-05-14] MEDS ORDERED: fentaNYL* 50 MCG/ML 2 ML VIAL (100 MCG VIAL) ONE ×3 (15:40→17:15)
[2019-05-14] MEDS ORDERED: Propofol* 10 MG/ML 20 ML BTL ONE (15:41)
[2019-05-14] MEDS ORDERED: Phenylephrine 40 MCG/ML SYRINGE ONE (16:22)
[2019-05-14] MEDS: fentaNYL* 50 MCG/ML 2 ML VIAL (100 MCG VIAL) IV PRN ×4 (16:45→17:35)
[2019-05-14] MEDS: Acetaminophen TAB* 325 MG PO PRN (22:05)
[2019-05-14] MEDS: Insulin GLARGINE(*) 1 UNITS UNIT SUBCUT SCH (22:06)
[2019-05-14] MEDS: oxyCODONE/Acetamin 5/325 MG* TAB PO PRN (23:52)
--- NOTE | 2019-05-15 00:15 | OP ---
DATE OF OPERATION: 05/15/19 - ROOM #413 DATE OF : 87 SURGEON: Henry Meier MD VEGETABLE FARMWORKER: ELENA Hightower PRE-OP DIAGNOSIS: Infected Charcot arthropathy, left talonavicular joint. POST-OP DIAGNOSIS: Infected Charcot arthropathy, left talonavicular joint. OPERATIVE PROCEDURE: Debridement, left hindfoot with talus and navicular excision. DESCRIPTION OF PROCEDURE: The patient was taken to the operating room where a transverse incision was made over the anterior ankle crease. We opened up the bursa or at least the capsule of the tibiotalar joint and the soft tissues surrounding the talonavicular joint. Copious amount of purulent cloudy fluid was obtained and sent for culture and sensitivity. The neck of the talus was eroded through its lateral 50% and the soft tissue attachments of the talus required attenuated. It appeared to be nonviable and was removed after stripping the soft tissues medial and lateral. Also the navicular, which was articulating with it looked noel, nonviable and was removed. We performed 6 L of pulsatile lavage of the surrounding soft tissues. We milked the tendon sheath proximal to distal and we are not able to locate any significant amount of purulence proximally. The tourniquet was dropped and local hemostasis obtained. We closed the dorsal to plantar flaps using deep 0 Monocryl sutures and 2-0 Prolene for the skin. We closed over a Hemovac drain. [id number]/CPS #: [id number] MTDD
[2019-05-15] MEDS: Acetaminophen TAB* 325 MG PO PRN (04:06)
[2019-05-15] MEDS: Morphine INJ* 2 MG/ML 1 ML SYRINGE (TWO MG - NEW SYRINGE VERSION) IV PRN ×2 (04:06→21:49)
[2019-05-15] MEDS ORDERED: Vancomycin Trough Check NOTE FOLLOW UP ONE (05:30)
[2019-05-15] MEDS: Cefepime 2 GM in Dextrose(*) 2 GM/50 ML BAG IV SCH (06:26)
[2019-05-15] MEDS: Vancomycin(*) 1,250 MG in NS 0.9% 250 ML* 250 ML IVPB SCH (07:47)
--- NOTE | 2019-05-15 07:53 | PN ---
Subjective Date of Service: 05/15/19 Interval History: HOSPITALIST PROGRESS NOTE Patient seen and examined at bedside. Care reviewed and d/w Cynthia Garrido RN. His pain is still present, but less intense than yesterday. Denies N/V/D, no CP or dyspnea. Family History: Unchanged from Admission Social History: Unchanged from Admission Past Medical History: Unchanged from Admission Objective Active Medications: Acetaminophen (Tylenol Tab*) 650 mg PO Q6H PRN PRN Reason: MILD PAIN or TEMP > 100.4 Last Admin: 05/15/19 04:06 Dose: 650 mg Dextrose (Dextrose 50% Vial 50 Ml*) 25 ml IV PUSH .FOR FS < 60 - SS PRN PRN Reason: FS < 60 Diphenhydramine HCl (Benadryl Iv*) 12.5 mg IV Q6H PRN PRN Reason: PRURITIS Diphenhydramine HCl (Benadryl Po*) 25 mg PO Q6H PRN PRN Reason: ITCHING Docusate Sodium (Colace Cap*) 100 mg PO BID PRN PRN Reason: CONSTIPATION Cefepime HCl (Maxipime 2 Gm In Dextrose Duplex (*)) 2 gm in 50 mls @ 100 mls/ hr IV Q12H [facility] Last Admin: 05/15/19 06:26 Dose: 100 mls/hr Vancomycin HCl 1,250 mg/ (Sodium Chloride) 250 mls @ 166.667 mls/hr IVPB Q8H [facility] Last Admin: 05/15/19 07:47 Dose: Not Given Influenza Virus Vaccine (Fluarix Quad 0088-3516 Syr) 0.5 ml IM .ONCE ONE Stop: 05/15/19 09:01 Last Admin: 05/14/19 09:33 Dose: Not Given Insulin Human NPH (Insulin Nph(*)) 24 units SUBCUT BID [facility] Insulin Human Regular (Insulin Regular(*)) 16 units SUBCUT AC [facility] Insulin Human Regular (Insulin Regular(*)) 0 units SUBCUT AC [facility]; Protocol Lisinopril (Prinivil Tab*) 10 mg PO DAILY [facility] Last Admin: 05/14/19 08:17 Dose: 10 mg Morphine Sulfate (Morphine Inj (Syringe))*) 2 mg IV Q2H PRN PRN Reason: PAIN - SEVERE Last Admin: 05/15/19 04:06 Dose: 2 mg Ondansetron HCl (Zofran Inj*) 4 mg IV Q6H PRN PRN Reason: NAUSEA Ondansetron HCl (Zofran Odt Tab*) 4 mg PO Q6H PRN PRN Reason: NAUSEA/VOMITING Oxycodone/Acetaminophen (Percocet 5/325 Tab*) 1 tab PO Q3H PRN PRN Reason: PAIN - MODERATE Oxycodone/Acetaminophen (Percocet 5/325 Tab*) 2 tab PO Q3H PRN PRN Reason: PAIN - MODERATE Last Admin: 05/14/19 23:52 Dose: 2 tab Pharmacy Consult (Vancomycin Per Pharmacy*) 1 note FOLLOW UP .VANC PER PHARMACY [facility]; Protocol Tramadol HCl (Ultram*) 50 mg PO Q6H PRN PRN Reason: PAIN - MODERATE Last Admin: 05/14/19 19:20 Dose: 50 mg Vital Signs - 8 hr 05/15/19 05/15/19 05/15/19 00:24 01:30 03:15 Temperature 98.4 F 98.4 F Pulse Rate 94 80 Respiratory 16 16 Rate Blood Pressure 94/56 92/50 (mmHg) O2 Sat by Pulse 96 95 95 Oximetry 05/15/19 05/15/19 05/15/19 04:06 04:12 06:22 Temperature Pulse Rate Respiratory 16 16 16 Rate Blood Pressure (mmHg) O2 Sat by Pulse Oximetry Oxygen Devices in Use Now: None Appearance: Pleasant morbid obese gentleman sitting up in bed in NAD. Eyes: No Scleral Icterus Ears/Nose/Mouth/Throat: Mucous Membranes Moist Neck: Trachea Midline Respiratory: Symmetrical Chest Expansion and Respiratory Effort, Clear to Auscultation Cardiovascular: NL Sounds; No Murmurs; No JVD, RRR Abdominal: NL Sounds; No Tenderness; No Distention - morbid obese Extremities: - - Cast to LLE with drain in place, good capillary refill to the visible toes Neurological: Alert and Oriented x 3, NL Muscle Strength and Tone Result Diagrams: 05/13/19 13:21 05/14/19 05:39 Microbiology and Other Data: Microbiology 05/14/19 16:08 Gram Stain - Preliminary Ankle Left 05/13/19 14:18 Aerobic Blood Culture - Preliminary Blood Venous No Growth Day 1 Anaerobic Blood Culture - Preliminary Blood MRSA/MSSA (PCR) - Final Mrsa Positive S.aureus Positive 05/13/19 14:22 Aerobic Blood Culture - Preliminary Blood Venous No Growth Day 1 Anaerobic Blood Culture - Preliminary No Growth Day 1 Assess/Plan/Problems-Billing Assessment: Mr Car is a 34yo M with PMH of morbid obesity with BMI 41.8, insulin dependent diabetes, HTN, HLD, GERD, Charcot arthropathy, anxiety; admitted by Dr Meier for planed open debridement, cultures and bone debridement of left ankle/Charcot arthropaty. - Patient Problems (1) Septic arthritis Comment: - Left ankle Charcot arthropathy/septic arthritis, s/p debridement of left hindfoot and talus/navicular excision. - Culture from fluid aspirated as outpatient positive for MRSA. - 08/08 blood culture positive for MRSA as well - repeat blood cultures. - ID input appreciated - continue Vancomycin. (2) Type 2 diabetes mellitus Comment: - Chronically uncontrolled with HbA1c 12. - Endocrinology consult appreciated - change regimen to NPH 36 units BID, regular insulin 24 units TID (titrate dose by 6-8 units until pre meal glucose < 180). (3) HTN (hypertension) Comment: - Controlled. - Continue Lisinopril. (4) DVT prophylaxis Comment: - D/w Dr Meier - will start SQ heparin. (5) Full code status Status and Disposition: Hospitalist service will continue to follow with you.
[2019-05-15] MEDS: Lisinopril TAB* 10 MG PO SCH (07:56)
[2019-05-15] MEDS: Insulin REGULAR(*) 1 UNITS UNIT SUBCUT SCH ×6 (07:57→17:13)
[2019-05-15] MEDS: Influenza VAC *QUAD* 2019-20* 0.5 ML SYRINGE IM ONE (07:57)
[2019-05-15] MEDS ORDERED: Insulin NPH(*) 1 UNITS UNIT SUBCUT SCH (09:00)
[2019-05-15] MEDS: oxyCODONE/Acetamin 5/325 MG* TAB PO PRN ×2 (09:42→15:45)
[2019-05-15] MEDS: Docusate CAP* 100 MG PO PRN (09:42)
[2019-05-15] MEDS: traMADol TAB* 50 MG PO PRN (11:15)
[2019-05-15] MEDS: Vancomycin(*) 750 MG in NS 0.9% 250 ML* 250 ML IVPB SCH ×2 (11:28→18:24)
--- NOTE | 2019-05-15 13:36 | CONS ---
CONSULTATION REPORT: DATE OF CONSULT: 05/15/19 PRIMARY CARE PROVIDER: ELENA Spears PROVIDER REQUESTING CONSULTATION: ELENA Munoz CONSULTING SERVICE: Infectious Disease. PROVIDER: Kaur Asher NP ATTENDING PROVIDER: Dr. Reece Quintero * (dictated by Kaur Asher NP). REASON FOR CONSULTATION: Left ankle infection. IMPRESSION: 1. Left ankle infection in the setting of Charcot arthropathy, suspect chronic osteomyelitis. The patient is status post debridement of the left hindfoot with talus and navicular excision, postop day #1. The patient had aspiration of his ankle outpatient. This is growing 1+ Gram-positive cocci with PCR positive for methicillin-resistant Staphylococcus aureus and Staphylococcus aureus. He had blood cultures on admission with 1/4 bottles positive for Staphylococcus aureus. He has been on vancomycin and cefepime during his hospitalization. He has had intermittent low- grade fevers and found to have mild leukocytosis on admission. 2. Diabetes mellitus type 2. 3. Obesity with BMI of 45.1. 4. History of osteomyelitis, status post amputation of the right first toe. RECOMMENDATIONS/PLAN: Recommend discontinuing cefepime and continuing vancomycin, trough goal 15-20. He will need to have 8 weeks of IV antibiotics. Will recheck blood cultures, if these are negative can place a PICC line. Will need to have weekly labs while on IV antibiotics: CBC, CMP, CRP and vanco trough. Further recommendations will be based off of the final culture results and clinic course in the hospital. HISTORY OF PRESENT ILLNESS: Mr. Car is a 34-year-old male with past medical history significant for osteomyelitis, diabetes mellitus, obesity with BMI of 41.8, hypertension, hyperlipidemia, left foot Charcot arthropathy, anxiety, who has been having issues with his left ankle after a fracture for approximately a year. He has been following with Orthopedic Surgery. He states that 1 week ago , he developed significant left ankle swelling and a fever of 101. He saw Dr. Meier in followup for a followup on 05/13/19 and he performed a joint aspiration in the office showing a yellow fluid and he was sent to [facility] as a direct admission. While in the hospital, he had the left ankle aspiration returned with MRSA positive and Staph aureus positive, PCR showing 2+ Gram- positive cocci, 4+ neutrophils. He had blood culture on admission showing 1/4 bottles with Staph aureus, PCR positive for MRSA and Staph aureus. He was taken to the operating room on 05/14/19 and underwent a debridement of the left hindfoot with talus and navicular excision with Dr. Meier. Cultures during that procedure showed 3+ neutrophils, 1+ Gram-positive cocci. He has had cefepime and vancomycin during his hospitalization. He had a low-grade fevers yesterday night, temperature max 100.9. He had mild leukocytosis on admission with a white blood cell count of 10.9, elevated ESR 119, CRP 333.27. He currently denies fevers, chills, nausea, vomiting, diarrhea, constipation, urinary symptoms, rash, recent travel. He does report discomfort in the left lower extremity. PAST MEDICAL HISTORY: 1. Osteomyelitis of the right first toe. 2. Diabetes mellitus type 2. 3. Obesity, BMI of 41.8. 4. Hypertension. 5. Hyperlipidemia. 6. Charcot arthropathy. 7. Anxiety. PAST SURGICAL HISTORY: 1. Status post hernia repair. 2. Status post right first toe amputation. 3. Status post debridement of the left hindfoot with talus and navicular excision on 05/14/19. MEDICATIONS: Home medications: 1. [place] 5/325 one tab by mouth as needed for pain. 2. Fluoxetine 20 mg by mouth daily. 3. Lisinopril 20 mg by mouth daily. 4. Simvastatin 20 mg by mouth daily. 5. Omeprazole 20 mg by mouth daily. 6. Lantus SoloStar 80 units subcutaneous daily. 7. Basaglar KwikPen 30 units subcutaneous before meals. Hospital medications: 1. Acetaminophen 650 mg by mouth every 6 hours as needed for fever or pain. 2. Cefepime 2 g IV every 12 hours. 3. Dextrose 25 mL IV push for fingerstick less than 60. 4. Benadryl 12.5 mg IV every 6 hours as needed for itching. 5. Benadryl 25 mg by mouth every 6 hours as needed for itching. 6. Colace 100 mg by mouth twice daily as needed for constipation. 7. NPH insulin 24 units subcutaneous twice daily. 8. Regular insulin 16 units subcutaneous with meals. 9. Regular insulin sliding scale subcutaneous with meals. 10. Lisinopril 10 mg by mouth daily. 11. Morphine sulfate 2 mg IV every 2 hours as needed for pain. 12. Zofran 4 mg IV p.o. every 6 hours as needed for nausea. 13. Percocet 5/325 one to two tablets by mouth every 3 hours as needed for pain. 14. Tramadol 50 mg by mouth every 6 hours as needed for pain. 15. Vancomycin 750 mg IV every 8 hours. ALLERGIES: ADHESIVE TAPE, SULFA caused a severe reaction as a child per the patient. FAMILY HISTORY: Denies family history of recurrent resistant infections. Father with a history of alpha-1 antitrypsin deficiency and COPD. Mother with a history of diabetes. Denies family history of coronary artery disease or cancer. SOCIAL HISTORY: Denies alcohol, tobacco, or recreational drug use. REVIEW OF SYSTEMS: I performed a 10-point review of systems, other pertinent positive and negatives as mentioned in the history of present illness. Remaining review of systems are negative. PHYSICAL EXAMINATION: Vital Signs: Temperature 98.1, heart rate 77, respiratory rate 16, O2 sat 96% on room air, blood pressure 108/60. General Appearance: No acute distress, sitting up in bed. Head: Normocephalic, atraumatic. ENT: Extraocular movements are intact. No subconjunctival hemorrhage. Moist mucous membranes. Neck: Supple. No lymphadenopathy. Neurological: Alert and oriented x4. Cranial nerves II through XII are grossly intact. Cardiovascular: Regular rate and rhythm. S1, S2 are present. No murmurs, rubs, or gallops. Respiratory: Lungs are clear to auscultation bilateral. Abdomen: Bowel sounds present. Abdomen is obese, soft, and nontender. Extremities: No lower extremity edema. Musculoskeletal: No clubbing or cyanosis noted. He exhibits good strength in all extremities. Psychological: Calm and cooperative. Skin: No rashes or abnormalities seen. He has a surgical dressing to his right lower extremity with a Hemovac in place with bloody drainage. DIAGNOSTIC STUDIES/LABORATORY DATA: Labs from 05/13/19, WBC 10.9, hemoglobin 11.8, hematocrit 35, platelet count 212. Labs from 05/14/19, sodium 130, potassium 3.9, chloride 94, CO2 30, BUN 21, creatinine 1.06, glucose 262. ESR 119 and CRP 333.27 on admission. Please see impression and recommendations outlined above, recommendations have been discussed with ELENA Steinberg. Thank you for asking us to see Mr. Car in consultation. Case has been reviewed with my attending, Dr. Reece Quintero, who agrees with the plan of care. Reviewed by EBEN MCKENZIE-Hamzah 05/18/19 1331 [id number]/[facility] #: [id number] MTDD
--- NOTE | 2019-05-15 14:23 | PN ---
Progress Note - Progress Note Date of Service: 05/15/19 Note: [facility] Inpatient Progress Note ASSESSMENT: 35 yo M with T2DM. BG remain elevated despite insulin this morning with meal. His insulin requirement is at least 150 units/day and possibily much higher than this in setting of high-carbohydrate diet. I recommend the following changes to his insulin regimen. PLAN: - increase regular insulin to 24 units TID-AC - continue correction insulin for now - titrate dose by 6-8 units/day until pre-meal BG <180 - increase NPH insulin to 36 units AM and HS - follow-up with myself at [facility] in 2-3 weeks after discharge - call [phone] with questions SUBJECTIVE: Feeling well after debridement yesterday. 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 He has been in his usual state of health for the past several weeks, but has noted increased redness and pain in the LLE. He was diagnosed with T2DM in 2006 and has used basal/bolus insulin since then. His current regimen consists of Lantus 40-80 and Humalog 15-15-15 for a TDD of 165 units/day = 1 unit/kg/day. On this regimen, he has been unable to achieve A1c <9% despite reported adherence to insulin injections. He is followed locally at [facility] in [place], [place]. Inpatient Medications: Acetaminophen (Tylenol Tab*) 650 mg PO Q6H PRN PRN Reason: MILD PAIN or TEMP > 100.4 Last Admin: 05/15/19 04:06 Dose: 650 mg Dextrose (Dextrose 50% Vial 50 Ml*) 25 ml IV PUSH .FOR FS < 60 - SS PRN PRN Reason: FS < 60 Diphenhydramine HCl (Benadryl Iv*) 12.5 mg IV Q6H PRN PRN Reason: PRURITIS Diphenhydramine HCl (Benadryl Po*) 25 mg PO Q6H PRN PRN Reason: ITCHING Docusate Sodium (Colace Cap*) 100 mg PO BID PRN PRN Reason: CONSTIPATION Last Admin: 05/15/19 09:42 Dose: 100 mg Vancomycin HCl 750 mg/ Sodium (Chloride) 250 mls @ 166.667 mls/hr IVPB Q8H [facility] Last Admin: 05/15/19 11:28 Dose: 166.667 mls/hr Insulin Human NPH (Insulin Nph(*)) 24 units SUBCUT BID [facility] Last Admin: 05/15/19 07:56 Dose: 24 unit Insulin Human Regular (Insulin Regular(*)) 16 units SUBCUT [facility] Last Admin: 05/15/19 11:28 Dose: 16 unit Insulin Human Regular (Insulin Regular(*)) 0 units SUBCUT [facility]; Protocol Last Admin: 05/15/19 11:28 Dose: 8 unit Lisinopril (Prinivil Tab*) 10 mg PO DAILY [facility] Last Admin: 05/15/19 07:56 Dose: 10 mg Morphine Sulfate (Morphine Inj (Syringe))*) 2 mg IV Q2H PRN PRN Reason: PAIN - SEVERE Last Admin: 05/15/19 04:06 Dose: 2 mg Ondansetron HCl (Zofran Inj*) 4 mg IV Q6H PRN PRN Reason: NAUSEA Ondansetron HCl (Zofran Odt Tab*) 4 mg PO Q6H PRN PRN Reason: NAUSEA/VOMITING Last Admin: 05/15/19 14:08 Dose: 4 mg Oxycodone/Acetaminophen (Percocet 5/325 Tab*) 1 tab PO Q3H PRN PRN Reason: PAIN - MODERATE Oxycodone/Acetaminophen (Percocet 5/325 Tab*) 2 tab PO Q3H PRN PRN Reason: PAIN - MODERATE Last Admin: 05/15/19 09:42 Dose: 2 tab Pharmacy Consult (Vancomycin Per Pharmacy*) 1 note FOLLOW UP .VANC PER PHARMACY [facility]; Protocol Pharmacy Profile Note (Vancomycin Trough Check) 1 note FOLLOW UP 1030 ONE Stop: 05/16/19 10:31 Tramadol HCl (Ultram*) 50 mg PO Q6H PRN PRN Reason: PAIN - MODERATE Last Admin: 05/15/19 11:15 Dose: 50 mg Social History: Lives with parents. Unemployed. Family History: Multiple family members with T2DM. Review of Systems: As above. Has history of infected PICC and is reluctant to pursue this in the future for IV antibiotics. 12 system review is otherwise negative. OBJECTIVE: Temp Pulse Resp BP Pulse Ox 98.0 F 80 16 107/68 91 10/11/19 11:21 05/15/19 11:21 05/15/19 11:21 05/15/19 11:21 05/15/19 11:21 General: alert, pleasant, oriented, no distress ENT: neck supple, no thyromegaly, no bruit is heard Chest: CTAB, no wheezing or crackles CV: RRR, no murmur Abdomen: soft, non-tender Extremities: no edema, distal pulses intact Skin: warm, dry, no rash Neuro: grossly intact motor/sensory in extremities Psych: restricted affect, pleasant Labs: Glucose Results 05/14/19 18:58 220 05/14/19 21:00 349 05/15/19 07:30 270 - 24R, 24N 05/15/19 11:30 287 - 24R WBC 10.9 10^3/uL (3.5-10.8) H 05/13/19 13:21 RBC 4.28 10^6 /uL (4.18-5.48) 05/13/19 13:21 Hgb 11.8 g/dL (14.0-18.0) L 05/13/19 13:21 Hct 35 % (42-52) L 05/13/19 13:21 MCV 81 fL (80-94) 05/13/19 13:21 MCH 28 pg (27-31) 05/13/19 13:21 MCHC 34 g/dL (31-36) 05/13/19 13:21 RDW 13 % (10-15) 05/13/19 13:21 Plt Count 212 10^3/uL (150-450) 05/13/19 13:21 MPV 8.4 fL (7.4-10.4) 05/13/19 13:21 Neut % (Auto) 70.1 % 05/13/19 13:21 Lymph % (Auto) 12.2 % 05/13/19 13:21 [place] % (Auto) 16.6 % 05/13/19 13:21 Eos % (Auto) 0.3 % 05/13/19 13:21 Baso % (Auto) 0.8 % 05/13/19 13:21 Absolute Neuts (auto) 7.6 10^3/ul (1.5-7.7) 05/13/19 13:21 Absolute Lymphs (auto) 1.3 10^3/ul (1.0-4.8) 05/13/19 13:21 Absolute Monos (auto) 1.8 10^3/ul (0-0.8) H 05/13/19 13:21 Absolute Eos (auto) 0.0 10^3/ul (0-0.6) 05/13/19 13:21 Absolute Basos (auto) 0.1 10^3/ul (0-0.2) 05/13/19 13:21 Absolute Nucleated RBC 0.0 10^3/ul 05/13/19 13:21 Nucleated RBC % 0.1 05/13/19 13:21 ESR 119 mm/Hr (0-14) H 05/13/19 13:21 INR (Anticoag Therapy) 1.33 (0.82-1.09) H 05/13/19 13:21 APTT 36.8 seconds (26.0-38.0) 05/13/19 13:21 Sodium 130 mmol/L (135-145) L 05/14/19 05:39 Potassium 3.9 mmol/L (3.5-5.0) 05/14/19 05:39 Chloride 94 mmol/L (101-111) L 05/14/19 05:39 Carbon Dioxide 30 mmol/L (22-32) 05/14/19 05:39 Anion Gap 6 mmol/L (2-11) 05/14/19 05:39 BUN 21 mg/dL (6-24) 05/14/19 05:39 Creatinine 1.06 mg/dL (0.67-1.17) 05/14/19 05:39 Est GFR ( Amer) 97.4 (>60) 05/14/19 05:39 Est GFR (Non-Af Amer) 80.5 (>60) 05/14/19 05:39 BUN/Creatinine Ratio 19.8 (8-20) 05/14/19 05:39 Glucose 262 mg/dL (70-100) H 05/14/19 05:39 POC Glucose (mg/dL) 270 mg/dL (70-100) H 05/15/19 07:25 Hemoglobin A1c 12.0 % (4.0-5.6) H 05/14/19 05:39 Lactic Acid 0.8 mmol/L (0.5-2.0) 05/14/19 08:33 Calcium 8.8 mg/dL (8.6-10.3) 05/14/19 05:39 C-Reactive Protein 333.27 mg/L (<8.01) H 05/13/19 13:21 Vancomycin Trough 27.4 mcg/mL 05/15/19 06:19
--- NOTE | 2019-05-15 15:03 | PN ---
Progress Note - Progress Note Date of Service: 05/15/19 SOAP: Subjective: [Pt was seen lying in bed. States that he is doing okay. Feels the splint is quite heavy on his leg and would like a environmental services specialist one if possible. Would also like a scratching stick. He denies any nausea, vomiting, fevers, chills, night sweats, sob or chest pain. ] Objective: [General: Pt is alert and oriented x3. NAD. MSK, LLE: Inspection of the left ankle and foot reveals a splint intact. toes are exposed and he is able to wiggle them. Sensation intact and cap refill less than 2 seconds. ] Vital Signs Temp 98.0 F 05/15/19 11:21 Pulse 80 05/15/19 11:21 Resp 16 05/15/19 11:21 BP 107/68 05/15/19 11:21 Pulse Ox 91 05/15/19 11:21 Intake & Output 05/14/19 05/15/19 05/15/19 18:59 06:59 18:59 Intake Total 2510 054 3582 Output Total 500 Balance 2883 954 8891 Weight 305 lb 3.2 oz Intake: IV Fluids 1347 355 ABX - CEFEPIME 105 ABX - VANCOMYCIN 270 250 LR 1077 Oral 10 480 1920 Output: Urine 500 Other: Date of Last Bowel 05/12/19 [id number] Movement # Bowel Movements 0 0 1 Estimated Stool Amount Small # Voids 1 1 Assessment: [POD 1 I&D left hindfoot] Plan: [Continue with vanco per Infectious disease repeat cultures continue with anticoagulation PT Splint will remain and no scratching stick provided. He was encouraged not to put anything down his splint. ]
[2019-05-15] MEDS: Ondansetron INJ* 2 MG/ML VIAL IV PRN (18:24)
[2019-05-15] MEDS: NS 0.9% 1000 ML** 1,000 ML IV SCH (18:46)
[2019-05-15] MEDS: Insulin NPH(*) 1 UNITS UNIT SUBCUT SCH (21:51)
[2019-05-15] MEDS: Heparin VIAL(*) 5000 UNITS/ML VIAL (FIVE THOUSAND) SUBCUT SCH (21:52)
[2019-05-16] MEDS: Vancomycin(*) 750 MG in NS 0.9% 250 ML* 250 ML IVPB SCH ×2 (03:22→13:09)
[2019-05-16] MEDS: Heparin VIAL(*) 5000 UNITS/ML VIAL (FIVE THOUSAND) SUBCUT SCH ×3 (05:32→21:06)
[2019-05-16 06:59] LABS: ABS Basophils 0.2 10^3/ul (0-0.2); ABS Eosinophils 0.4 10^3/ul (0-0.6); ABS Lymphocytes 1.6 10^3/ul (1.0-4.8); ABS Monocytes 1.5 10^3/ul (0-0.8); ABS Neutrophils 9.6 10^3/ul (1.5-7.7); Eosinophil % 3.2 %; Hematocrit 32 % (42-52); Hemoglobin 10.7 g/dL (14.0-18.0); Lymphocyte % 12.3 %; Mean Corpuscular HGB Conc 34 g/dL (31-36); Mean Corpuscular Hemoglobin 28 pg (27-31); Mean Corpuscular Volume 82 fL (80-94); Platelet Count 291 10^3/uL (150-450); Red Blood Count 3.87 10^6 /uL (4.18-5.48); Red Cell Distribution Width 14 % (10-15); White Blood Count 13.3 10^3/uL (3.5-10.8)
[2019-05-16] MEDS: Insulin NPH(*) 1 UNITS UNIT SUBCUT SCH ×2 (08:23→21:07)
[2019-05-16] MEDS: Insulin REGULAR(*) 1 UNITS UNIT SUBCUT SCH ×6 (08:23→17:07)
[2019-05-16] MEDS: Lisinopril TAB* 10 MG PO SCH (08:24)
[2019-05-16] MEDS: Docusate CAP* 100 MG PO PRN (08:35)
[2019-05-16] MEDS: oxyCODONE/Acetamin 5/325 MG* TAB PO PRN ×2 (08:35→19:26)
[2019-05-16] MEDS: Ondansetron INJ* 2 MG/ML VIAL IV PRN (08:36)
[2019-05-16] MEDS: NS 0.9% 1000 ML** 1,000 ML IV SCH ×2 (08:43→17:39)
[2019-05-16] MEDS ORDERED: Vancomycin Trough Check NOTE FOLLOW UP ONE (10:30)
[2019-05-16 11:01] LABS: EGFR African American 30.2 (>60)
[2019-05-16 11:27] LABS: Vancomycin Trough 34.5 mcg/mL
--- NOTE | 2019-05-16 11:40 | PN ---
Progress Note - Progress Note Date of Service: 05/16/19 Note: Post-op day 2 s/p left foot debridement with infection: Patient resting comfortably in bed denying SOB, CP or dizziness. He is being followed by medicine for his medical issues. Orthopedically his dressing is C/D/I. Toes are pink and warm. He moves his knee easily without pain. We discussed plan for left BKA on Saturday with Dr. Meier. Patient's questions and concerns were addressed. Dr. Meier to see patient today as well. We will continue to monitor and appreciate medicines guidance.
--- NOTE | 2019-05-16 14:58 | PN ---
Subjective Date of Service: 05/16/19 Interval History: Reports some blurry vision which improved.No loss of vision or peripheral vision. counselled pt on importance of managing diabetes Family History: Unchanged from Admission Social History: Unchanged from Admission Past Medical History: Unchanged from Admission Objective Active Medications: Acetaminophen (Tylenol Tab*) 650 mg PO Q6H PRN PRN Reason: MILD PAIN or TEMP > 100.4 Last Admin: 05/15/19 04:06 Dose: 650 mg Dextrose (Dextrose 50% Vial 50 Ml*) 25 ml IV PUSH .FOR FS < 60 - SS PRN PRN Reason: FS < 60 Diphenhydramine HCl (Benadryl Iv*) 12.5 mg IV Q6H PRN PRN Reason: PRURITIS Diphenhydramine HCl (Benadryl Po*) 25 mg PO Q6H PRN PRN Reason: ITCHING Docusate Sodium (Colace Cap*) 100 mg PO BID PRN PRN Reason: CONSTIPATION Last Admin: 05/16/19 08:35 Dose: 100 mg Heparin Sodium (Porcine) (Heparin Vial(*)) 5,000 units SUBCUT Q8HR [facility] Last Admin: 05/16/19 13:00 Dose: 5,000 units Sodium Chloride (Ns 0.9% 1000 Ml) 1,000 mls @ 100 mls/hr IV PER RATE [facility] Last Admin: 05/16/19 08:43 Dose: 100 mls/hr Sodium Chloride (Ns 0.9% 1000 Ml) 1,000 mls @ 100 mls/hr IV PER RATE [facility] Insulin Human NPH (Insulin Nph(*)) 36 units SUBCUT BID [facility] Last Admin: 05/16/19 08:23 Dose: 36 units Insulin Human Regular (Insulin Regular(*)) 0 units SUBCUT AC [facility]; Protocol Last Admin: 05/16/19 12:00 Dose: Not Given Insulin Human Regular (Insulin Regular(*)) 24 units SUBCUT AC [facility] Last Admin: 05/16/19 13:00 Dose: 24 unit Morphine Sulfate (Morphine Inj (Syringe))*) 2 mg IV Q2H PRN PRN Reason: PAIN - SEVERE Last Admin: 05/15/19 21:49 Dose: 2 mg Ondansetron HCl (Zofran Inj*) 4 mg IV Q6H PRN PRN Reason: NAUSEA Last Admin: 05/16/19 08:36 Dose: 4 mg Ondansetron HCl (Zofran Odt Tab*) 4 mg PO Q6H PRN PRN Reason: NAUSEA/VOMITING Last Admin: 05/15/19 14:08 Dose: 4 mg Oxycodone/Acetaminophen (Percocet 5/325 Tab*) 1 tab PO Q3H PRN PRN Reason: PAIN - MODERATE Oxycodone/Acetaminophen (Percocet 5/325 Tab*) 2 tab PO Q3H PRN PRN Reason: PAIN - MODERATE Last Admin: 05/16/19 08:35 Dose: 2 tab Pharmacy Consult (Vancomycin Per Pharmacy*) 1 note FOLLOW UP .VANC PER PHARMACY [facility]; Protocol Pharmacy Consult (Vancomycin Random Level*) 1 note FOLLOW UP 0600 ONE Stop: 05/17/19 06:01 Tramadol HCl (Ultram*) 50 mg PO Q6H PRN PRN Reason: PAIN - MODERATE Last Admin: 05/15/19 11:15 Dose: 50 mg Vital Signs - 8 hr 05/16/19 05/16/19 05/16/19 07:15 08:00 08:35 Temperature 98.0 F Pulse Rate 95 Respiratory 16 14 16 Rate Blood Pressure 101/61 (mmHg) O2 Sat by Pulse 98 95 Oximetry 05/16/19 05/16/19 11:13 12:00 Temperature 97.9 F Pulse Rate 86 Respiratory 16 14 Rate Blood Pressure 119/68 (mmHg) O2 Sat by Pulse 95 Oximetry Oxygen Devices in Use Now: None Eyes: No Scleral Icterus Ears/Nose/Mouth/Throat: NL Teeth, Lips, Gums Neck: NL Appearance and Movements; NL JVP Respiratory: Symmetrical Chest Expansion and Respiratory Effort Cardiovascular: NL Sounds; No Murmurs; No JVD Abdominal: NL Sounds; No Tenderness; No Distention Extremities: No Edema, - - dressing cdi. non tender Neurological: Alert and Oriented x 3 Result Diagrams: 05/16/19 06:32 05/16/19 10:23 Microbiology and Other Data: Microbiology 05/14/19 16:08 Gram Stain - Preliminary Ankle Left 05/13/19 14:18 Aerobic Blood Culture - Preliminary Blood Venous No Growth Day 1 Anaerobic Blood Culture - Preliminary Blood MRSA/MSSA (PCR) - Final Mrsa Positive S.aureus Positive 05/13/19 14:22 Aerobic Blood Culture - Preliminary Blood Venous No Growth Day 1 Anaerobic Blood Culture - Preliminary No Growth Day 1 Assess/Plan/Problems-Billing Assessment: Mr Car is a 34yo M with PMH of morbid obesity with BMI 41.8, insulin dependent diabetes, HTN, HLD, GERD, Charcot arthropathy, anxiety; admitted by Dr Meier for planed open debridement, cultures and bone debridement of left ankle/Charcot arthropaty. - Patient Problems (1) Septic arthritis Current Visit: Yes Status: Acute Comment: - Left ankle Charcot arthropathy/ septic arthritis, s/p debridement of left hindfoot and talus/navicular excision. - Culture from fluid aspirated as outpatient positive for MRSA. - 08/08 blood culture positive for MRSA as well - repeat blood cultures. - ID input appreciated - continue Vancomycin -Poss osteomyelitis -Plan for BKA (L) on Saturday (2) HTN (hypertension) Current Visit: Yes Status: Acute Code(s): I10 - ESSENTIAL (PRIMARY) HYPERTENSION SNOMED Code(s): 41216523 Comment: - Controlled. - Continue Lisinopril. (3) Type 2 diabetes mellitus Current Visit: Yes Status: Acute Comment: - Chronically uncontrolled with HbA1c 12. - Endocrinology consult appreciated - change regimen to NPH 36 units BID, regular insulin 24 units TID (titrate dose by 6-8 units until pre meal glucose < 180). (4) DVT prophylaxis Current Visit: Yes Status: Acute Code(s): Z29.9 - ENCOUNTER FOR PROPHYLACTIC MEASURES, UNSPECIFIED SNOMED Code(s): 425851618 Comment: - D/w Dr Meier - will start SQ heparin. (5) Full code status Current Visit: Yes Status: Acute Code(s): Z78.9 - OTHER SPECIFIED HEALTH STATUS SNOMED Code(s): 404694919 (6) BRANNON (acute kidney injury) Current Visit: Yes Status: Acute Code(s): N17.9 - ACUTE KIDNEY FAILURE, UNSPECIFIED SNOMED Code(s): 77123331 Comment: Sec to Vanco toxicity Vanco trough elevated at 30 recent debridement Discussed with Pharmacy.Hold Vancomycin.Recheck level in am and then decide on further dosing Will start IVF in the meantime Hold Lisinopril till his kidney improves check CPK Status and Disposition: Hospitalist service will continue to follow with you.
--- NOTE | 2019-05-16 21:50 | CONS ---
PROGRESS NOTE: DATE OF SERVICE: 05/16/19 SUMMARY: Malik is in [facility] and he is recovering from his debridement and talectomy left hindfoot. He is not having any significant pain currently. Resting comfortably in bed. His vancomycin has been stopped temporarily as his trough was high and of note his creatinine up to 2.92. He feels well, and we have discussed with him the next step in his recovery from this hindfoot infection. The choices going forward would be a left transtibial amputation at the junction of the mid to proximal third tibia versus a Syme amputation. The risk of the Syme is that it is basically at the level of the infection and I am sure there is some traveling of the infection up the tendon sheath, which could be addressed at the time of surgery, but still the Syme is a bit risky saying it is really more or less in the zone of the infection versus the higher amputation, which has good chance of being outside the zone of infection and more than likely a better healing overall. He is scheduled for surgery on 05/18/19, and he and I had a long talk today about the recovery. I am hoping that we can arrange a PMRU consultation after the surgery on Saturday. [id number]/[facility] #: [id number] MIKKI
[2019-05-17] MEDS: Heparin VIAL(*) 5000 UNITS/ML VIAL (FIVE THOUSAND) SUBCUT SCH ×3 (05:47→22:07)
[2019-05-17] MEDS ORDERED: Vancomycin Random Level* NOTE FOLLOW UP ONE (06:00)
[2019-05-17 06:42] LABS: ABS Basophils 0.1 10^3/ul (0-0.2); ABS Eosinophils 0.4 10^3/ul (0-0.6); ABS Lymphocytes 1.8 10^3/ul (1.0-4.8); ABS Monocytes 1.5 10^3/ul (0-0.8); ABS Neutrophils 8.9 10^3/ul (1.5-7.7); Hematocrit 31 % (42-52); Hemoglobin 10.5 g/dL (14.0-18.0); Mean Corpuscular HGB Conc 34 g/dL (31-36); Mean Corpuscular Hemoglobin 28 pg (27-31); Mean Corpuscular Volume 82 fL (80-94); Mean Platelet Volume 7.7 fL (7.4-10.4); Platelet Count 331 10^3/uL (150-450); Red Blood Count 3.78 10^6 /uL (4.18-5.48); Red Cell Distribution Width 14 % (10-15); White Blood Count 12.7 10^3/uL (3.5-10.8)
[2019-05-17 06:52] LABS: Calcium 8.3 mg/dL (8.6-10.3); EGFR African American 30.7 (>60); EGFR Non-African American 25.4 (>60); Potassium 3.8 mmol/L (3.5-5.0); Vancomycin Random 24.1 mcg/mL
[2019-05-17] MEDS: oxyCODONE/Acetamin 5/325 MG* TAB PO PRN (08:30)
[2019-05-17] MEDS: Insulin REGULAR(*) 1 UNITS UNIT SUBCUT SCH ×6 (09:11→17:12)
[2019-05-17] MEDS: Insulin NPH(*) 1 UNITS UNIT SUBCUT SCH ×2 (10:04→22:07)
--- NOTE | 2019-05-17 10:19 | PN ---
Progress Note - Progress Note Date of Service: 05/17/19 Note: Patient comfortable with no complaints. Toes warm, pink, without sensation which is baseline. Splint C/D/I. Reviewed plan for left BKA tomorrow with Dr. Meier. Patient's questions were answered. Will make him NPO at midnight tonight. Appreciate medicine's input and optimization for surgery 05/18/19.
--- NOTE | 2019-05-17 13:32 | PN ---
Subjective Date of Service: 05/17/19 Interval History: Denies any complaints. Vision improved.No blurriness. Glucose low this am. Insulin adjusted Family History: Unchanged from Admission Social History: Unchanged from Admission Past Medical History: Unchanged from Admission Objective Active Medications: Acetaminophen (Tylenol Tab*) 650 mg PO Q6H PRN PRN Reason: MILD PAIN or TEMP > 100.4 Last Admin: 05/15/19 04:06 Dose: 650 mg Dextrose (Dextrose 50% Vial 50 Ml*) 25 ml IV PUSH .FOR FS < 60 - SS PRN PRN Reason: FS < 60 Diphenhydramine HCl (Benadryl Iv*) 12.5 mg IV Q6H PRN PRN Reason: PRURITIS Diphenhydramine HCl (Benadryl Po*) 25 mg PO Q6H PRN PRN Reason: ITCHING Docusate Sodium (Colace Cap*) 100 mg PO BID PRN PRN Reason: CONSTIPATION Last Admin: 05/16/19 08:35 Dose: 100 mg Heparin Sodium (Porcine) (Heparin Vial(*)) 5,000 units SUBCUT Q8HR [facility] Last Admin: 05/17/19 05:47 Dose: 5,000 units Sodium Chloride (Ns 0.9% 1000 Ml) 1,000 mls @ 100 mls/hr IV PER RATE [facility] Last Admin: 05/16/19 17:39 Dose: 100 mls/hr Insulin Human NPH (Insulin Nph(*)) 36 units SUBCUT BID [facility] Last Admin: 05/17/19 10:04 Dose: 36 units Insulin Human Regular (Insulin Regular(*)) 0 units SUBCUT [facility]; Protocol Last Admin: 05/17/19 12:05 Dose: Not Given Insulin Human Regular (Insulin Regular(*)) 20 units SUBCUT [facility] Last Admin: 05/17/19 12:06 Dose: 20 units Morphine Sulfate (Morphine Inj (Syringe))*) 2 mg IV Q2H PRN PRN Reason: PAIN - SEVERE Last Admin: 05/15/19 21:49 Dose: 2 mg Ondansetron HCl (Zofran Inj*) 4 mg IV Q6H PRN PRN Reason: NAUSEA Last Admin: 05/16/19 08:36 Dose: 4 mg Ondansetron HCl (Zofran Odt Tab*) 4 mg PO Q6H PRN PRN Reason: NAUSEA/VOMITING Last Admin: 05/15/19 14:08 Dose: 4 mg Oxycodone/Acetaminophen (Percocet 5/325 Tab*) 1 tab PO Q3H PRN PRN Reason: PAIN - MODERATE Oxycodone/Acetaminophen (Percocet 5/325 Tab*) 2 tab PO Q3H PRN PRN Reason: PAIN - MODERATE Last Admin: 05/17/19 08:30 Dose: 2 tab Pharmacy Consult (Vancomycin Per Pharmacy*) 1 note FOLLOW UP .VANC PER PHARMACY [facility]; Protocol Tramadol HCl (Ultram*) 50 mg PO Q6H PRN PRN Reason: PAIN - MODERATE Last Admin: 05/15/19 11:15 Dose: 50 mg Vital Signs - 8 hr 05/17/19 05/17/19 05/17/19 07:30 08:00 08:30 Temperature 98.3 F Pulse Rate 82 Respiratory 17 20 18 Rate Blood Pressure 114/54 (mmHg) O2 Sat by Pulse 97 97 Oximetry 05/17/19 05/17/19 11:15 12:05 Temperature 98.1 F Pulse Rate 87 Respiratory 16 16 Rate Blood Pressure 131/75 (mmHg) O2 Sat by Pulse 93 Oximetry Oxygen Devices in Use Now: None Eyes: No Scleral Icterus Ears/Nose/Mouth/Throat: NL Teeth, Lips, Gums Neck: NL Appearance and Movements; NL JVP Respiratory: Symmetrical Chest Expansion and Respiratory Effort Cardiovascular: NL Sounds; No Murmurs; No JVD Abdominal: NL Sounds; No Tenderness; No Distention Extremities: No Edema, - - Dressing CDI Neurological: Alert and Oriented x 3 Result Diagrams: 05/17/19 06:19 05/17/19 06:19 Microbiology and Other Data: Microbiology 05/14/19 16:08 Gram Stain - Preliminary Ankle Left 05/13/19 14:18 Aerobic Blood Culture - Preliminary Blood Venous No Growth Day 1 Anaerobic Blood Culture - Preliminary Blood MRSA/MSSA (PCR) - Final Mrsa Positive S.aureus Positive 05/13/19 14:22 Aerobic Blood Culture - Preliminary Blood Venous No Growth Day 1 Anaerobic Blood Culture - Preliminary No Growth Day 1 Assess/Plan/Problems-Billing Assessment: Mr Car is a 34yo M with PMH of morbid obesity with BMI 41.8, insulin dependent diabetes, HTN, HLD, GERD, Charcot arthropathy, anxiety; admitted by Dr Meier for planed open debridement, cultures and bone debridement of left ankle/Charcot arthropaty. - Patient Problems (1) Septic arthritis Current Visit: Yes Status: Acute Comment: - Left ankle Charcot arthropathy/ septic arthritis, s/p debridement of left hindfoot and talus/navicular excision. - Culture from fluid aspirated as outpatient positive for MRSA. - 1/ blood culture positive for MRSA as well - repeat blood cultures. - ID input appreciated - continue Vancomycin -Poss osteomyelitis -Plan for BKA (L) on Saturday (2) HTN (hypertension) Current Visit: Yes Status: Acute Code(s): I10 - ESSENTIAL (PRIMARY) HYPERTENSION SNOMED Code(s): 06816992 Comment: - Controlled. -Lisinopril held in setting of BRANNON -BP in 130s (3) Type 2 diabetes mellitus Current Visit: Yes Status: Acute Comment: - Chronically uncontrolled with HbA1c 12. - Endocrinology consult appreciated - change regimen to NPH 36 units BID, was on regular insulin 24 units TID (titrate dose by 6-8 units until pre meal glucose <180).Reduced to 20 units TID due to hypoglycemia today (4) BRANNON (acute kidney injury) Current Visit: Yes Status: Acute Code(s): N17.9 - ACUTE KIDNEY FAILURE, UNSPECIFIED SNOMED Code(s): 78563921 Comment: Sec to Vanco toxicity Vanco trough elevated at 30 recent debridement Discussed with Pharmacy.Holding Vancomycin.Recheck level and then decide on further dosing Will start IVF in the meantime Hold Lisinopril till his kidney improves check CPK (5) DVT prophylaxis Current Visit: Yes Status: Acute Code(s): Z29.9 - ENCOUNTER FOR PROPHYLACTIC MEASURES, UNSPECIFIED SNOMED Code(s): 229860251 Comment: SQ heparin. (6) Full code status Current Visit: Yes Status: Acute Code(s): Z78.9 - OTHER SPECIFIED HEALTH STATUS SNOMED Code(s): 339291020 Status and Disposition: Hospitalist service will continue to follow with you.
[2019-05-18] MEDS: oxyCODONE/Acetamin 5/325 MG* TAB PO PRN ×3 (01:39→20:53)
[2019-05-18] MEDS: Heparin VIAL(*) 5000 UNITS/ML VIAL (FIVE THOUSAND) SUBCUT SCH ×2 (05:16→12:48)
[2019-05-18 06:35] LABS: Hematocrit 30 % (42-52); Mean Corpuscular HGB Conc 34 g/dL (31-36); Mean Corpuscular Hemoglobin 28 pg (27-31); Mean Corpuscular Volume 82 fL (80-94); Mean Platelet Volume 7.3 fL (7.4-10.4); Platelet Count 333 10^3/uL (150-450); Red Blood Count 3.63 10^6 /uL (4.18-5.48); Red Cell Distribution Width 14 % (10-15); White Blood Count 12.2 10^3/uL (3.5-10.8)
[2019-05-18 06:36] LABS: ABS Eosinophils 0.4 10^3/ul (0-0.6); ABS Lymphocytes 2.4 10^3/ul (1.0-4.8); ABS Monocytes 1.8 10^3/ul (0-0.8); ABS Neutrophils 7.6 10^3/ul (1.5-7.7); Eosinophil % 3.4 %; Lymphocyte % 19.9 %
[2019-05-18 06:45] LABS: Vancomycin Random 14.2 mcg/mL
[2019-05-18 06:46] LABS: BUN/Creatinine Ratio 8.1 (8-20); EGFR African American 32.8 (>60); EGFR Non-African American 27.1 (>60); Potassium 4.1 mmol/L (3.5-5.0)
[2019-05-18] MEDS: Insulin REGULAR(*) 1 UNITS UNIT SUBCUT SCH ×6 (08:27→17:27)
[2019-05-18] MEDS: Insulin NPH(*) 1 UNITS UNIT SUBCUT SCH ×2 (10:21→21:23)
[2019-05-18] MEDS: NS 0.9% 1000 ML** 1,000 ML IV SCH ×2 (11:28→18:57)
--- NOTE | 2019-05-18 11:41 | PN ---
Progress Note - Progress Note Date of Service: 05/18/19 SOAP: Subjective: CC: foot infection HPI: 34 year old man with diabetes and infected left charcot joint s/p I&D and resection of involved bone, plan for BKA today. He has no pain fever, rash, or diarrhea. Still urinating. Objective: Vital Signs Temp 36.8 C 05/18/19 07:15 Pulse 76 05/18/19 07:15 Resp 18 05/18/19 08:00 BP 141/74 05/18/19 07:15 Pulse Ox 95 05/18/19 08:00 Intake & Output 05/17/19 05/18/19 05/18/19 18:59 06:59 18:59 Intake Total 1550 1560 0 Output Total 450 Balance 1550 1110 0 Intake: IV Fluids 1200 NS 1200 Oral 1550 360 0 Output: Urine 450 Other: Estimated Void Medium Date of Last Bowel 05/18/19 Movement # Bowel Movements 0 Estimated Stool Amount Large # Voids 3 Gen:awake, no distress HEENT: no thrush Heart:RRR no murmur Lungs:CTA BL Abd:+BS NTND soft Skin: no rash MSK: L foot wrapped Laboratory Results - last 24 hr 05/17/19 05/17/19 05/17/19 07:52 11:45 16:44 WBC RBC Hgb Hct MCV MCH MCHC RDW Plt Count MPV Neut % (Auto) Lymph % (Auto) [place] % (Auto) Eos % (Auto) Baso % (Auto) Absolute Neuts (auto) Absolute Lymphs (auto) Absolute Monos (auto) Absolute Eos (auto) Absolute Basos (auto) Absolute Nucleated RBC Nucleated RBC % Sodium Potassium Chloride Carbon Dioxide Anion Gap BUN Creatinine Est GFR ( Amer) Est GFR (Non-Af Amer) BUN/Creatinine Ratio Glucose POC Glucose (mg/dL) 88 200 H 140 H Calcium Random Vancomycin 05/17/19 05/17/19 05/18/19 19:52 21:55 06:10 WBC RBC Hgb Hct MCV MCH MCHC RDW Plt Count MPV Neut % (Auto) Lymph % (Auto) [place] % (Auto) Eos % (Auto) Baso % (Auto) Absolute Neuts (auto) Absolute Lymphs (auto) Absolute Monos (auto) Absolute Eos (auto) Absolute Basos (auto) Absolute Nucleated RBC Nucleated RBC % Sodium 136 Potassium 4.1 Chloride 106 Carbon Dioxide 25 Anion Gap 5 BUN 22 Creatinine 2.72 H Est GFR ( Amer) 32.8 Est GFR (Non-Af Amer) 27.1 BUN/Creatinine Ratio 8.1 Glucose 76 POC Glucose (mg/dL) 69 L 155 H Calcium 8.0 L Random Vancomycin 14.2 05/18/19 05/18/19 06:10 08:11 WBC 12.2 H RBC 3.63 L Hgb 10.0 L Hct 30 L MCV 82 MCH 28 MCHC 34 RDW 14 Plt Count 333 MPV 7.3 L Neut % (Auto) 61.9 Lymph % (Auto) 19.9 [place] % (Auto) 14.5 Eos % (Auto) 3.4 Baso % (Auto) 0.3 Absolute Neuts (auto) 7.6 Absolute Lymphs (auto) 2.4 Absolute Monos (auto) 1.8 H Absolute Eos (auto) 0.4 Absolute Basos (auto) 0.0 Absolute Nucleated RBC 0.0 Nucleated RBC % 0.0 Sodium Potassium Chloride Carbon Dioxide Anion Gap BUN Creatinine Est GFR ( Amer) Est GFR (Non-Af Amer) BUN/Creatinine Ratio Glucose POC Glucose (mg/dL) 83 Calcium Random Vancomycin Assessment: 1. 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 BKA planned 2. Acute kidney injury, could be due to vancomycin or ATN, probably too early for AIN 3. IDDM 4. obesity Plan: 1. stop vancomycin, will start linezolid 600 mg IV Q12hrs, duration pending surgical findings
[2019-05-18] MEDS: Linezolid 600 MG IVPREMIX(*) 600 MG/300 ML BAG IVPB SCH (12:45)
[2019-05-18] MEDS ORDERED: Bupivacaine 0.5%* 50 ML MDV VIAL ONE (14:33)
[2019-05-18] MEDS ORDERED: Midazolam* 1 MG/ML 5 ML VIAL (5 MG) ONE (15:07)
[2019-05-18] MEDS ORDERED: Rocuronium* 10 MG/ML VIAL ONE (15:19)
[2019-05-18] MEDS ORDERED: fentaNYL* 50 MCG/ML 2 ML VIAL (100 MCG VIAL) ONE ×4 (15:19→18:05)
[2019-05-18] MEDS ORDERED: KETAMINE HCL* 50 MG/ML 10 ML VIAL ONE (15:40)
[2019-05-18] MEDS ORDERED: HYDROmorphone INJ1* 1 MG/ML SYRINGE ONE ×2 (15:40→18:06)
--- NOTE | 2019-05-18 15:42 | PN ---
Subjective Date of Service: 05/18/19 Interval History: Mr. Car is feeling well today. He offers no complaints. He believes he is going for surgery today, but has not heard a time. Denies pain. Appetite is good. No CP, SOB, N/V. No concerns from nursing. Family History: Unchanged from Admission Social History: Unchanged from Admission Past Medical History: Unchanged from Admission Objective Active Medications: Acetaminophen (Tylenol Tab*) 650 mg PO Q6H PRN MILD PAIN or TEMP > 100.4 Dextrose (Dextrose 50% Vial 50 Ml*) 25 ml IV PUSH .FOR FS < 60 - SS PRN FS < 60 Diphenhydramine HCl (Benadryl Iv*) 12.5 mg IV Q6H PRN PRURITIS Diphenhydramine HCl (Benadryl Po*) 25 mg PO Q6H PRN ITCHING Docusate Sodium (Colace Cap*) 100 mg PO BID PRN CONSTIPATION Heparin Sodium (Porcine) (Heparin Vial(*)) 5,000 units SUBCUT Q8HR [facility] Sodium Chloride (Ns 0.9% 1000 Ml) 1,000 mls @ 100 mls/hr IV PER RATE [facility] Linezolid (Zyvox 600 Mg Ivpremix(*)) 600 mg in 300 mls @ 300 mls/hr IVPB Q12H [facility] Insulin Human NPH (Insulin Nph(*)) 36 units SUBCUT BID [facility] Insulin Human Regular (Insulin Regular(*)) 0 units SUBCUT AC [facility]; Protocol Insulin Human Regular (Insulin Regular(*)) 20 units SUBCUT AC [facility] Morphine Sulfate (Morphine Inj (Syringe))*) 2 mg IV Q2H PRN PAIN - SEVERE Ondansetron HCl (Zofran Inj*) 4 mg IV Q6H PRN NAUSEA Ondansetron HCl (Zofran Odt Tab*) 4 mg PO Q6H PRN NAUSEA/VOMITING Oxycodone/Acetaminophen (Percocet 5/325 Tab*) 1 tab PO Q3H PRN PAIN - MODERATE Oxycodone/Acetaminophen (Percocet 5/325 Tab*) 2 tab PO Q3H PRN PAIN - MODERATE Tramadol HCl (Ultram*) 50 mg PO Q6H PRN PAIN - MODERATE Vital Signs - 8 hr 05/18/19 05/18/19 05/18/19 08:00 11:15 13:43 Temperature 98.7 F 98.2 F Pulse Rate 81 79 Respiratory 18 20 20 Rate Blood Pressure 152/74 160/83 (mmHg) O2 Sat by Pulse 95 100 99 Oximetry Oxygen Devices in Use Now: None Appearance: Middle-aged male lying in bed in NAD Ears/Nose/Mouth/Throat: Mucous Membranes Moist Neck: NL Appearance and Movements; NL JVP, Trachea Midline Respiratory: Symmetrical Chest Expansion and Respiratory Effort, Clear to Auscultation Cardiovascular: NL Sounds; No Murmurs; No JVD, RRR Abdominal: NL Sounds; No Tenderness; No Distention Neurological: Alert and Oriented x 3 Lines/Tubes/Other Access: Clean, Dry and Intact Peripheral IV Result Diagrams: 05/18/19 06:10 05/18/19 06:10 Assess/Plan/Problems-Billing Assessment: Mr. Car is a 34 yo M with PMH of morbid obesity, insulin dependent diabetes, HTN, HLD, GERD, Charcot arthropathy, anxiety; admitted by Dr. Meier for planned open debridement, cultures and bone debridement of left ankle/Charcot arthropaty. - Patient Problems (1) Septic arthritis Comment: - Left ankle Charcot arthropathy/septic arthritis, s/p debridement of left hindfoot and talus/navicular excision - Wound cultures positive for MRSA - / blood culture positive for MRSA; repeat BC without growth - ID consulting; continue linezolid, length to be determined - Plan for left BKA today d/t concern for osteomyelitis (2) BRANNON (acute kidney injury) Code(s): N17.9 - ACUTE KIDNEY FAILURE, UNSPECIFIED Comment: - Secondary to vanco toxicity; trough elevated at 30 - Hold lisinopril - Abx changed to linezolid per ID - Continue IVF (3) Type 2 diabetes mellitus Comment: - Uncontrolled, A1c 12% - Endocrine consulting; changes made to NPH (24 to 36 units) and regular (24 to 20 units) - Continue NPH, regular insulin (4) HTN (hypertension) Code(s): I10 - ESSENTIAL (PRIMARY) HYPERTENSION Comment: - Elevated today, SBP up to 160s - Hold lisinopril d/t BRANNON - Start amlodipine (5) Morbid obesity Code(s): E66.01 - MORBID (SEVERE) OBESITY DUE TO EXCESS CALORIES Comment: - BMI 45 (6) DVT prophylaxis Code(s): Z29.9 - ENCOUNTER FOR PROPHYLACTIC MEASURES, UNSPECIFIED Comment: - SCDs; chemoprophylaxis held for surgery (7) Full code status Code(s): Z78.9 - OTHER SPECIFIED HEALTH STATUS Comment: Status and Disposition: Dispo per Ortho. Thank you for this consultation. We will continue to follow. Attending: Anil Mccurdy
[2019-05-18] MEDS ORDERED: Acetaminophen IV 1GM/100ML * 1,000 MG/100 ML VIAL IVPB ONE (16:08)
[2019-05-18] MEDS ORDERED: DiMENhydriNATE IV* 50 MG/ML VIAL IV PUSH PRN (16:08)
[2019-05-18] MEDS ORDERED: HYDROmorphone INJ1* 1 MG/ML SYRINGE IV PRN (16:08)
[2019-05-18] MEDS ORDERED: Naloxone* 0.4 MG/ML 1 ML VIAL IV PRN (16:08)
[2019-05-18] MEDS ORDERED: Ondansetron INJ* 2 MG/ML VIAL ONE (16:09)
[2019-05-18] MEDS ORDERED: Succinylcholine* 20 MG/ML 10 ML VIAL ONE (16:09)
[2019-05-18] MEDS ORDERED: Sugammadex * 500 MG/5 ML VIAL IV PUSH ONE (16:09)
[2019-05-18] MEDS ORDERED: Propofol* 10 MG/ML 20 ML BTL ONE (16:09)
[2019-05-18] MEDS ORDERED: Lidocaine 2% PF * 5 ML VIAL ONE (16:10)
[2019-05-18] MEDS ORDERED: fentaNYL* 50 MCG/ML 5 ML VIAL (250 MCG VIAL) ONE (16:36)
[2019-05-18] MEDS: fentaNYL* 50 MCG/ML 2 ML VIAL (100 MCG VIAL) IV PRN ×5 (17:25→18:07)
[2019-05-18] MEDS ORDERED: oxyCODONE/Acetamin 5/325 MG* TAB ONE (17:39)
[2019-05-18] MEDS ORDERED: Acetaminophen IV 1GM/100ML * 100 ML ONE (17:40)
[2019-05-18] MEDS ORDERED: DiMENhydriNATE IV* 50 MG/ML VIAL ONE (17:40)
[2019-05-18] MEDS: Morphine INJ* 2 MG/ML 1 ML SYRINGE (TWO MG - NEW SYRINGE VERSION) IV PRN ×2 (18:56→22:20)
--- NOTE | 2019-05-18 22:04 | OP ---
DATE OF OPERATION: 05/18/19 - ROOM #333 DATE OF : 87 SURGEON: Henry Meier MD MATERIAL HANDLER 1ST SHIFT: ELENA Hightower PRE-OP DIAGNOSIS: Osteomyelitis, left hindfoot. POST-OP DIAGNOSIS: Osteomyelitis, left hindfoot. OPERATIVE PROCEDURE: Left transtibial amputation. DESCRIPTION OF PROCEDURE: The patient was taken to the operating room where a thigh tourniquet was applied. We made a transverse elliptical incision in the junction of the mid third proximal third left tibia with a longer posterior flap. We divided down to the tibia with a periosteal elevator. We were able to expose 3 cm proximal to the skin incision and then transect this with a sagittal saw. We beveled the anterior cortex. The fibula was transected at the same level 1 cm proximal. We divided the anterior compartment, flexed up through the osteotomy to expose the posterior compartment, which was then divided with a #10 blade and the leg delivered to pathology. Local cultures were taken. Hemostasis was obtained with 0 Vicryl suture ligatures and then a liter of saline irrigation. The tissues looked quite healthy at this level. Closure consisted of #1 Vicryls for the deep fascia, anterior to posterior with the tourniquet dropped. We then used some combination of 0 Monocryl, 2-0 Monocryl for the subcu and 2-0 Prolene for the skin interrupted vertical mattress sutures. A compression dressing and plaster splint was applied. [id number]/[facility] #: [id number] MTDD
[2019-05-19] MEDS: Linezolid 600 MG IVPREMIX(*) 600 MG/300 ML BAG IVPB SCH ×2 (00:14→11:42)
[2019-05-19] MEDS: Morphine INJ* 4 MG/ML 1 ML SYRINGE (NEW SYRINGE VERSION) IV PRN ×3 (00:59→08:04)
[2019-05-19] MEDS: oxyCODONE TAB* 5 MG TAB PO PRN ×5 (02:25→21:07)
[2019-05-19 05:27] LABS: ABS Basophils 0.1 10^3/ul (0-0.2); ABS Eosinophils 0.3 10^3/ul (0-0.6); ABS Lymphocytes 1.5 10^3/ul (1.0-4.8); ABS Monocytes 1.4 10^3/ul (0-0.8); ABS Neutrophils 8.5 10^3/ul (1.5-7.7); Eosinophil % 2.4 %; Hematocrit 32 % (42-52); Hemoglobin 10.5 g/dL (14.0-18.0); Lymphocyte % 12.6 %; Mean Corpuscular HGB Conc 33 g/dL (31-36); Mean Corpuscular Hemoglobin 28 pg (27-31); Mean Corpuscular Volume 83 fL (80-94); Mean Platelet Volume 6.9 fL (7.4-10.4); Platelet Count 373 10^3/uL (150-450); Red Blood Count 3.83 10^6 /uL (4.18-5.48); Red Cell Distribution Width 13 % (10-15); White Blood Count 11.8 10^3/uL (3.5-10.8)
[2019-05-19 05:36] LABS: Calcium 7.8 mg/dL (8.6-10.3); Potassium 4.7 mmol/L (3.5-5.0)
[2019-05-19 05:41] LABS: BUN/Creatinine Ratio 8.7 (8-20); EGFR African American 39.8 (>60); EGFR Non-African American 32.9 (>60)
[2019-05-19] MEDS ORDERED: hydrALAZINE IV* 20 MG/ML VIAL IV SLOW PU PRN (08:33)
[2019-05-19] MEDS: Insulin REGULAR(*) 1 UNITS UNIT SUBCUT SCH ×6 (08:59→18:20)
[2019-05-19] MEDS: Carisoprodol TAB* 350 MG PO PRN ×3 (09:37→23:33)
[2019-05-19] MEDS: amLODIPine TAB* 5 MG PO SCH (09:38)
[2019-05-19] MEDS: Insulin NPH(*) 1 UNITS UNIT SUBCUT SCH ×2 (10:22→22:29)
[2019-05-19] MEDS: traMADol TAB* 50 MG PO PRN (13:47)
[2019-05-19] MEDS ORDERED: Insulin REGULAR(*) 1 UNITS UNIT SUBCUT ONE (14:00)
--- NOTE | 2019-05-19 14:38 | PN ---
Subjective Date of Service: 05/19/19 Interval History: Mr. Car is feeling poor this morning and had a rough night d/t pain at the surgical site. He believes he is having muscle spasms and pain medications are not helping that much. Denies CP, SOB, headache, dizziness. No concerns from nursing. Family History: Unchanged from Admission Social History: Unchanged from Admission Past Medical History: Unchanged from Admission Objective Active Medications: Acetaminophen (Tylenol Tab*) 650 mg PO Q6H PRN MILD PAIN or TEMP > 100.4 Amlodipine Besylate (Norvasc Tab*) 5 mg PO DAILY MICHAEL Carisoprodol (Soma Tab*) 350 mg PO TID PRN SPASMS Dextrose (Dextrose 50% Vial 50 Ml*) 25 ml IV PUSH .FOR FS < 60 - SS PRN FS < 60 Diphenhydramine HCl (Benadryl Iv*) 12.5 mg IV Q6H PRN PRURITIS Diphenhydramine HCl (Benadryl Po*) 25 mg PO Q6H PRN ITCHING Docusate Sodium (Colace Cap*) 100 mg PO BID PRN CONSTIPATION Hydralazine HCl (Apresoline Iv*) 5 mg IV SLOW PU Q6H PRN Systolic Bp Greater Than: 170 Sodium Chloride (Ns 0.9% 1000 Ml) 1,000 mls @ 100 mls/hr IV PER RATE [facility] Linezolid (Zyvox 600 Mg Ivpremix(*)) 600 mg in 300 mls @ 300 mls/hr IVPB Q12H [facility] Insulin Human NPH (Insulin Nph(*)) 36 units SUBCUT BID MICHAEL Insulin Human Regular (Insulin Regular(*)) 0 units SUBCUT AC [facility]; Protocol Insulin Human Regular (Insulin Regular(*)) 20 units SUBCUT AC [facility] Morphine Sulfate (Morphine Inj (Syringe)*) 4 mg IV Q2H PRN PAIN - SEVERE Ondansetron HCl (Zofran Inj*) 4 mg IV Q6H PRN NAUSEA Ondansetron HCl (Zofran Odt Tab*) 4 mg PO Q6H PRN NAUSEA/VOMITING Oxycodone HCl (Roxycodone Tab*) 10 mg PO Q4H PRN PAIN - SEVERE Oxycodone/Acetaminophen (Percocet 5/325 Tab*) 1 tab PO Q3H PRN PAIN - MODERATE Tramadol HCl (Ultram*) 50 mg PO Q6H PRN PAIN - MODERATE Vital Signs - 8 hr 05/19/19 05/19/19 05/19/19 07:26 07:30 08:00 Temperature Pulse Rate Respiratory 18 18 18 Rate Blood Pressure (mmHg) O2 Sat by Pulse 93 Oximetry 05/19/19 05/19/19 05/19/19 08:04 08:27 09:37 Temperature 98.0 F Pulse Rate 86 Respiratory 22 18 18 Rate Blood Pressure 165/87 (mmHg) O2 Sat by Pulse 93 Oximetry 05/19/19 05/19/19 05/19/19 11:51 12:15 13:47 Temperature 97.9 F Pulse Rate 96 Respiratory 18 16 18 Rate Blood Pressure 155/98 (mmHg) O2 Sat by Pulse 96 Oximetry Oxygen Devices in Use Now: None Appearance: Middle-aged male lying in bed in NAD Ears/Nose/Mouth/Throat: Mucous Membranes Moist Neck: NL Appearance and Movements; NL JVP, Trachea Midline Respiratory: Symmetrical Chest Expansion and Respiratory Effort, Clear to Auscultation Cardiovascular: NL Sounds; No Murmurs; No JVD, RRR Abdominal: NL Sounds; No Tenderness; No Distention Neurological: Alert and Oriented x 3 Lines/Tubes/Other Access: Clean, Dry and Intact Peripheral IV Nutrition: Taking PO's Result Diagrams: 05/19/19 05:19 05/19/19 05:19 Assess/Plan/Problems-Billing Assessment: Mr. Car is a 34 yo M with PMH of morbid obesity, insulin dependent diabetes, HTN, HLD, GERD, Charcot arthropathy, anxiety; admitted by Dr. Meier for planned open debridement, cultures and bone debridement of left ankle/Charcot arthropaty. - Patient Problems (1) Septic arthritis Comment: - POD #1 L BKA - Left ankle Charcot arthropathy/septic arthritis, s/p debridement of left hindfoot and talus/navicular excision - Wound cultures positive for MRSA - 1/4 blood culture positive for MRSA; repeat BC without growth - ID consulting; continue linezolid, length to be determined - Continue linezolid (2) BRANNON (acute kidney injury) Code(s): N17.9 - ACUTE KIDNEY FAILURE, UNSPECIFIED Comment: - Secondary to vanco toxicity; trough elevated at 30 - Hold lisinopril - Abx changed to linezolid per ID - Continue IVF (3) Type 2 diabetes mellitus Comment: - Uncontrolled, A1c 12% - Endocrine consulting; changes made to NPH (24 to 36 units) and regular (24 to 20 units) - Continue NPH, regular insulin (4) HTN (hypertension) Code(s): I10 - ESSENTIAL (PRIMARY) HYPERTENSION Comment: - Remains hypertensive - Hold lisinopril d/t BRANNON - Increase amlodipine (5) Morbid obesity Code(s): E66.01 - MORBID (SEVERE) OBESITY DUE TO EXCESS CALORIES Comment: - BMI 45 (6) DVT prophylaxis Code(s): Z29.9 - ENCOUNTER FOR PROPHYLACTIC MEASURES, UNSPECIFIED Comment: - Heparin SQ (7) Full code status Code(s): Z78.9 - OTHER SPECIFIED HEALTH STATUS Comment: Status and Disposition: Dispo per Ortho. Thank you for this consultation. We will continue to follow. Attending: Anil Mccurdy
--- NOTE | 2019-05-19 15:09 | PN ---
Progress Note - Progress Note Date of Service: 05/19/19 SOAP: Subjective: [Pt was seen lying in bed. States that he is doing okay. Feels that he is in a bit of pain. Hospitalists have ordered cyclobenzaprine. He denies any nausea, vomiting, fevers, chills, night sweats, sob or chest pain. ] Objective: [General: Pt is alert and oriented x3. NAD. MSK, LLE: Inspection reveals a stump with dressing. Sensation intact proximally. ] Vital Signs Temp 97.9 F 05/19/19 12:15 Pulse 96 05/19/19 12:15 Resp 18 05/19/19 13:53 BP 155/98 05/19/19 12:15 Pulse Ox 96 05/19/19 12:15 Intake & Output 05/18/19 05/19/19 05/19/19 18:59 06:59 18:59 Intake Total 1000 1030 Output Total 950 1200 Balance 1000 80 -1200 Weight 305 lb 1.916 oz Intake: IV Fluids 1000 LR 1000 Oral 0 1030 Output: Urine 950 1200 Other: Date of Last Bowel [id number] Movement # Bowel Movements 1 0 Estimated Stool Amount Large # Voids 1 Assessment: [S/P LBKA POD 1] Plan: [ - ID consulting; continue linezolid, length to be determined pending surgical pathology - Current pain meds with cyclobenzaprine added - Will continue to follow
[2019-05-19] MEDS: Heparin VIAL(*) 5000 UNITS/ML VIAL (FIVE THOUSAND) SUBCUT SCH (21:08)
[2019-05-20] MEDS: Linezolid 600 MG IVPREMIX(*) 600 MG/300 ML BAG IVPB SCH ×2 (00:17→13:08)
[2019-05-20] MEDS: oxyCODONE TAB* 5 MG TAB PO PRN ×5 (02:07→21:45)
[2019-05-20 06:05] LABS: Calcium 7.8 mg/dL (8.6-10.3); Potassium 4.3 mmol/L (3.5-5.0)
[2019-05-20 06:10] LABS: BUN/Creatinine Ratio 7.7 (8-20); EGFR African American 41.5 (>60); EGFR Non-African American 34.3 (>60)
[2019-05-20] MEDS: Insulin REGULAR(*) 1 UNITS UNIT SUBCUT SCH ×6 (08:21→17:21)
[2019-05-20] MEDS: traMADol TAB* 50 MG PO PRN (08:34)
[2019-05-20] MEDS: amLODIPine TAB* 5 MG PO SCH (08:34)
[2019-05-20] MEDS: Heparin VIAL(*) 5000 UNITS/ML VIAL (FIVE THOUSAND) SUBCUT SCH ×2 (08:35→21:17)
[2019-05-20] MEDS: Carisoprodol TAB* 350 MG PO PRN ×3 (08:35→20:12)
[2019-05-20] MEDS ORDERED: amLODIPine TAB* 5 MG PO SCH (09:00)
[2019-05-20] MEDS ORDERED: amLODIPine TAB* 5 MG PO ONE (09:23)
[2019-05-20] MEDS ORDERED: amLODIPine TAB* 5 MG ONE (09:28)
[2019-05-20] MEDS: Insulin NPH(*) 1 UNITS UNIT SUBCUT SCH ×2 (09:31→21:16)
--- NOTE | 2019-05-20 10:27 | PN ---
Progress Note - Progress Note Date of Service: 05/20/19 SOAP: Subjective: []Pt seen at bedside. He feels well without fever, chills, CP, SOB, dizziness or nausea. LLE pain is well controlled. Has been mobilizing with a walker. Objective: []Gen: Appears well, NAD LLE: Splint CDI without strike through, no skin breakdown proximally. Right calf supple and nontender Assessment: [][S/P left below knee amputation POD 2] Plan: NWB LLE ID consulting; continue linezolid, length to be determined pending surgical pathology Desires rehab placement Vital Signs Temp 98.5 F 05/20/19 08:15 Pulse 98 05/20/19 08:15 Resp 16 05/20/19 09:47 BP 168/72 05/20/19 08:15 Pulse Ox 93 05/20/19 08:15 Intake & Output 05/19/19 05/20/19 05/20/19 18:59 06:59 18:59 Intake Total 1240 Output Total 1200 1700 Balance -1200 -460 Intake: Oral 1240 Output: Urine 1200 1700 Other: # Bowel Movements 0 Laboratory Last Values WBC 11.8 10^3/uL (3.5-10.8) H 05/19/19 05:19 RBC 3.83 10^6 /uL (4.18-5.48) L 05/19/19 05:19 Hgb 10.5 g/dL (14.0-18.0) L 05/19/19 05:19 Hct 32 % (42-52) L 05/19/19 05:19 MCV 83 fL (80-94) 05/19/19 05:19 MCH 28 pg (27-31) 05/19/19 05:19 MCHC 33 g/dL (31-36) 05/19/19 05:19 RDW 13 % (10-15) 05/19/19 05:19 Plt Count 373 10^3/uL (150-450) 05/19/19 05:19 MPV 6.9 fL (7.4-10.4) L 05/19/19 05:19 Neut % (Auto) 72.0 % 05/19/19 05:19 Lymph % (Auto) 12.6 % 05/19/19 05:19 [place] % (Auto) 12.2 % 05/19/19 05:19 Eos % (Auto) 2.4 % 05/19/19 05:19 Baso % (Auto) 0.8 % 05/19/19 05:19 Absolute Neuts (auto) 8.5 10^3/ul (1.5-7.7) H 05/19/19 05:19 Absolute Lymphs (auto) 1.5 10^3/ul (1.0-4.8) 05/19/19 05:19 Absolute Monos (auto) 1.4 10^3/ul (0-0.8) H 05/19/19 05:19 Absolute Eos (auto) 0.3 10^3/ul (0-0.6) 05/19/19 05:19 Absolute Basos (auto) 0.1 10^3/ul (0-0.2) 05/19/19 05:19 Absolute Nucleated RBC 0.0 10^3/ul 05/19/19 05:19 Nucleated RBC % 0.0 05/19/19 05:19 ESR 119 mm/Hr (0-14) H 05/13/19 13:21 INR (Anticoag Therapy) 1.33 (0.82-1.09) H 05/13/19 13:21 APTT 36.8 seconds (26.0-38.0) 05/13/19 13:21 Sodium 131 mmol/L (135-145) L 05/20/19 05:36 Potassium 4.3 mmol/L (3.5-5.0) 05/20/19 05:36 Chloride 103 mmol/L (101-111) 05/20/19 05:36 Carbon Dioxide 22 mmol/L (22-32) 05/20/19 05:36 Anion Gap 6 mmol/L (2-11) 05/20/19 05:36 BUN 17 mg/dL (6-24) 05/20/19 05:36 Creatinine 2.22 mg/dL (0.67-1.17) H 05/20/19 05:36 Est GFR ( Amer) 41.5 (>60) 05/20/19 05:36 Est GFR (Non-Af Amer) 34.3 (>60) 05/20/19 05:36 BUN/Creatinine Ratio 7.7 (8-20) L 05/20/19 05:36 Glucose 103 mg/dL (70-100) H 05/20/19 05:36 POC Glucose (mg/dL) 119 mg/dL (70-100) H 05/20/19 08:08 Hemoglobin A1c 12.0 % (4.0-5.6) H 05/14/19 05:39 Lactic Acid 0.8 mmol/L (0.5-2.0) 05/14/19 08:33 Calcium 7.8 mg/dL (8.6-10.3) L 05/20/19 05:36 Total Creatine Kinase 31 U/L (10-223) 05/17/19 06:19 C-Reactive Protein 333.27 mg/L (<8.01) H 05/13/19 13:21 Vancomycin Trough 34.5 mcg/mL H* 05/16/19 10:23 Random Vancomycin 14.2 mcg/mL 05/18/19 06:10
[2019-05-20] MEDS: Morphine INJ* 4 MG/ML 1 ML SYRINGE (NEW SYRINGE VERSION) IV PRN (15:25)
--- NOTE | 2019-05-20 15:31 | PN ---
Subjective Date of Service: 05/20/19 Interval History: Mr. Car continues to have muscle spasms. They are somewhat improved. He has a sense of pressure and squeezing sensation at the surgical site. Otherwise denies complaints. No N/V, CP, SOB, dizziness, HOUGH. No concerns from nursing. Family History: Unchanged from Admission Social History: Unchanged from Admission Past Medical History: Unchanged from Admission Objective Active Medications: Acetaminophen (Tylenol Tab*) 650 mg PO Q6H PRN MILD PAIN or TEMP > 100.4 Amlodipine Besylate (Norvasc Tab*) 10 mg PO DAILY MICHAEL Carisoprodol (Soma Tab*) 350 mg PO TID PRN SPASMS Dextrose (Dextrose 50% Vial 50 Ml*) 25 ml IV PUSH .FOR FS < 60 - SS PRN FS < 60 Diphenhydramine HCl (Benadryl Iv*) 12.5 mg IV Q6H PRN PRURITIS Diphenhydramine HCl (Benadryl Po*) 25 mg PO Q6H PRN ITCHING Docusate Sodium (Colace Cap*) 100 mg PO BID PRN CONSTIPATION Heparin Sodium (Porcine) (Heparin Vial(*)) 5,000 units SUBCUT Q12HR MICHAEL Hydralazine HCl (Apresoline Iv*) 5 mg IV SLOW PU Q6H PRN Systolic Bp Greater Than: 170 Linezolid (Zyvox 600 Mg Ivpremix(*)) 600 mg in 300 mls @ 300 mls/hr IVPB Q12H [facility] Insulin Human NPH (Insulin Nph(*)) 36 units SUBCUT BID MICHAEL Insulin Human Regular (Insulin Regular(*)) 0 units SUBCUT AC [facility]; Protocol Insulin Human Regular (Insulin Regular(*)) 20 units SUBCUT AC [facility] Morphine Sulfate (Morphine Inj (Syringe)*) 4 mg IV Q2H PRN PAIN - SEVERE Ondansetron HCl (Zofran Inj*) 4 mg IV Q6H PRN NAUSEA Ondansetron HCl (Zofran Odt Tab*) 4 mg PO Q6H PRN NAUSEA/VOMITING Oxycodone HCl (Roxycodone Tab*) 10 mg PO Q4H PRN PAIN - SEVERE Vital Signs - 8 hr 05/20/19 05/20/19 05/20/19 08:00 08:15 08:34 Temperature 98.5 F Pulse Rate 98 Respiratory 18 16 18 Rate Blood Pressure 168/72 (mmHg) O2 Sat by Pulse 93 93 Oximetry 05/20/19 05/20/19 05/20/19 11:03 11:53 12:27 Temperature 98.8 F Pulse Rate 109 Respiratory 18 16 17 Rate Blood Pressure 160/79 (mmHg) O2 Sat by Pulse 93 Oximetry Oxygen Devices in Use Now: None Appearance: Middle-aged male lying in bed in NAD Ears/Nose/Mouth/Throat: Mucous Membranes Moist Neck: NL Appearance and Movements; NL JVP, Trachea Midline Respiratory: Symmetrical Chest Expansion and Respiratory Effort, Clear to Auscultation Cardiovascular: NL Sounds; No Murmurs; No JVD, RRR Abdominal: NL Sounds; No Tenderness; No Distention Neurological: Alert and Oriented x 3 Lines/Tubes/Other Access: Clean, Dry and Intact Peripheral IV Nutrition: Taking PO's Result Diagrams: 05/19/19 05:19 05/20/19 05:36 Assess/Plan/Problems-Billing Assessment: Mr. Car is a 34 yo M with PMH of morbid obesity, insulin dependent diabetes, HTN, HLD, GERD, Charcot arthropathy, anxiety; admitted by Dr. Meier for planned open debridement, cultures and bone debridement of left ankle/Charcot arthropaty. - Patient Problems (1) Septic arthritis Comment: - POD #2 L BKA - Left ankle Charcot arthropathy/septic arthritis, s/p debridement of left hindfoot and talus/navicular excision - Wound cultures positive for MRSA - 1/4 blood culture positive for MRSA; repeat BC without growth - ID consulting; continue linezolid, length to be determined - Continue linezolid (2) BRANNNO (acute kidney injury) Code(s): N17.9 - ACUTE KIDNEY FAILURE, UNSPECIFIED Comment: - Secondary to vanco toxicity; trough elevated at 30 - Hold lisinopril - Abx changed to linezolid per ID - Continue to trend (3) Type 2 diabetes mellitus Comment: - Uncontrolled, A1c 12% - Endocrine consulting; changes made to NPH (24 to 36 units) and regular (24 to 20 units) - Continue NPH, regular insulin (4) HTN (hypertension) Code(s): I10 - ESSENTIAL (PRIMARY) HYPERTENSION Comment: - Remains hypertensive - Hold lisinopril d/t BRANNON - Continue amlodipine (5) Morbid obesity Code(s): E66.01 - MORBID (SEVERE) OBESITY DUE TO EXCESS CALORIES Comment: - BMI 45 (6) DVT prophylaxis Code(s): Z29.9 - ENCOUNTER FOR PROPHYLACTIC MEASURES, UNSPECIFIED Comment: - Heparin SQ (7) Full code status Code(s): Z78.9 - OTHER SPECIFIED HEALTH STATUS Comment: Status and Disposition: Dispo per Ortho. Thank you for this consultation. We will continue to follow. Attending: Anil Mccurdy
[2019-05-21] MEDS: Linezolid 600 MG IVPREMIX(*) 600 MG/300 ML BAG IVPB SCH ×2 (00:18→12:21)
[2019-05-21] MEDS: Docusate CAP* 100 MG PO PRN ×3 (00:28→20:36)
[2019-05-21] MEDS: oxyCODONE TAB* 5 MG TAB PO PRN ×5 (02:20→20:35)
[2019-05-21] MEDS ORDERED: Metoprolol Tartrate TAB* 25 MG PO ONE (07:22)
[2019-05-21] MEDS: Carisoprodol TAB* 350 MG PO PRN ×2 (07:50→16:27)
[2019-05-21] MEDS ORDERED: Polyethylene Glycol 3350* 17 GM PACKET PO PRN (08:08)
[2019-05-21] MEDS: Insulin REGULAR(*) 1 UNITS UNIT SUBCUT SCH ×6 (08:08→16:49)
[2019-05-21] MEDS ORDERED: Senna TAB 8.6 mg* TAB PO PRN (08:08)
[2019-05-21] MEDS ORDERED: Magnesium Hydroxide LIQ* 30 ML UDC PO PRN (08:08)
[2019-05-21] MEDS: amLODIPine TAB* 5 MG PO SCH (09:16)
[2019-05-21] MEDS: Heparin VIAL(*) 5000 UNITS/ML VIAL (FIVE THOUSAND) SUBCUT SCH ×2 (09:17→20:36)
[2019-05-21] MEDS: Morphine INJ* 4 MG/ML 1 ML SYRINGE (NEW SYRINGE VERSION) IV PRN (09:17)
[2019-05-21] MEDS: Insulin NPH(*) 1 UNITS UNIT SUBCUT SCH ×2 (09:18→20:35)
--- NOTE | 2019-05-21 09:54 | PN ---
Subjective Date of Service: 05/21/19 Interval History: Mr. Car is feeling okay this morning. Pain is slightly improved, but still present. He feels as though the dressing on the surgical site is causing some of the pain. Denies CP, SOB, N/V, dizziness, headache. No concerns from nursing. Family History: Unchanged from Admission Social History: Unchanged from Admission Past Medical History: Unchanged from Admission Objective Active Medications: Acetaminophen (Tylenol Tab*) 650 mg PO Q6H PRN MILD PAIN or TEMP > 100.4 Amlodipine Besylate (Norvasc Tab*) 10 mg PO DAILY MICHAEL Carisoprodol (Soma Tab*) 350 mg PO TID PRN SPASMS Dextrose (Dextrose 50% Vial 50 Ml*) 25 ml IV PUSH .FOR FS < 60 - SS PRN FS < 60 Diphenhydramine HCl (Benadryl Iv*) 12.5 mg IV Q6H PRN PRURITIS Diphenhydramine HCl (Benadryl Po*) 25 mg PO Q6H PRN ITCHING Docusate Sodium (Colace Cap*) 100 mg PO BID PRN CONSTIPATION Heparin Sodium (Porcine) (Heparin Vial(*)) 5,000 units SUBCUT Q12HR [facility] Hydralazine HCl (Apresoline Iv*) 5 mg IV SLOW PU Q6H PRN Systolic Bp Greater Than: 170 Linezolid (Zyvox 600 Mg Ivpremix(*)) 600 mg in 300 mls @ 300 mls/hr IVPB Q12H [facility] Insulin Human NPH (Insulin Nph(*)) 36 units SUBCUT BID MICHAEL Insulin Human Regular (Insulin Regular(*)) 0 units SUBCUT AC [facility]; Protocol Insulin Human Regular (Insulin Regular(*)) 20 units SUBCUT AC [facility] Magnesium Hydroxide (Milk Of Magnesia Liq*) 30 ml PO BID PRN CONSTIPATION Morphine Sulfate (Morphine Inj (Syringe)*) 4 mg IV Q2H PRN PAIN - SEVERE Ondansetron HCl (Zofran Inj*) 4 mg IV Q6H PRN NAUSEA Ondansetron HCl (Zofran Odt Tab*) 4 mg PO Q6H PRN NAUSEA/VOMITING Oxycodone HCl (Roxycodone Tab*) 10 mg PO Q4H PRN PAIN - SEVERE Polyethylene Glycol/Electrolytes (Miralax*) 17 gm PO DAILY PRN CONSTIPATION Senna (Senokot 8.6 Mg Tab*) 1 tab PO BEDTIME PRN CONSTIPATION Vital Signs - 8 hr 05/21/19 05/21/19 05/21/19 02:20 04:02 05:11 Temperature 99.4 F Pulse Rate 110 Respiratory 18 18 16 Rate Blood Pressure 168/100 (mmHg) O2 Sat by Pulse 96 Oximetry 05/21/19 05/21/19 05/21/19 05:47 07:18 07:50 Temperature 99.1 F Pulse Rate 105 Respiratory 18 18 18 Rate Blood Pressure 148/90 (mmHg) O2 Sat by Pulse 92 Oximetry 05/21/19 05/21/19 05/21/19 08:00 09:17 09:51 Temperature Pulse Rate Respiratory 18 18 16 Rate Blood Pressure (mmHg) O2 Sat by Pulse 92 Oximetry Oxygen Devices in Use Now: None Appearance: Middle-aged male lying in bed in NAD Neck: NL Appearance and Movements; NL JVP, Trachea Midline Respiratory: Symmetrical Chest Expansion and Respiratory Effort, Clear to Auscultation Cardiovascular: NL Sounds; No Murmurs; No JVD, RRR Neurological: Alert and Oriented x 3 Lines/Tubes/Other Access: Clean, Dry and Intact Peripheral IV Nutrition: Taking PO's Result Diagrams: 05/19/19 05:19 05/20/19 05:36 Assess/Plan/Problems-Billing Assessment: Mr. Car is a 34 yo M with PMH of morbid obesity, insulin dependent diabetes, HTN, HLD, GERD, Charcot arthropathy, anxiety; admitted by Dr. Meier for planned open debridement, cultures and bone debridement of left ankle/Charcot arthropaty. - Patient Problems (1) Septic arthritis Comment: - POD #3 L transtibial amputation - Left ankle Charcot arthropathy/septic arthritis, s/p debridement of left hindfoot and talus/navicular excision - Wound cultures positive for MRSA - 1/4 blood culture positive for MRSA; repeat BC without growth - ID consulting; continue linezolid, length to be determined - Continue linezolid (2) BRANNON (acute kidney injury) Code(s): N17.9 - ACUTE KIDNEY FAILURE, UNSPECIFIED Comment: - Secondary to vanco toxicity; trough elevated at 30 - Hold lisinopril - Abx changed to linezolid per ID - Continue to trend (3) Type 2 diabetes mellitus Comment: - Uncontrolled, A1c 12% - Endocrine consulting; changes made to NPH (24 to 36 units) and regular (24 to 20 units) - Continue NPH, regular insulin (4) HTN (hypertension) Code(s): I10 - ESSENTIAL (PRIMARY) HYPERTENSION Comment: - Remains hypertensive - Hold lisinopril d/t BRANNON - Continue amlodipine; start metoprolol (5) Morbid obesity Code(s): E66.01 - MORBID (SEVERE) OBESITY DUE TO EXCESS CALORIES Comment: - BMI 45 (6) DVT prophylaxis Code(s): Z29.9 - ENCOUNTER FOR PROPHYLACTIC MEASURES, UNSPECIFIED Comment: - Heparin SQ (7) Full code status Code(s): Z78.9 - OTHER SPECIFIED HEALTH STATUS Comment: Status and Disposition: Dispo per Ortho. Thank you for this consultation. We will continue to follow. Attending: Anil Mccurdy
--- NOTE | 2019-05-21 10:54 | PN ---
Progress Note - Progress Note Date of Service: 05/21/19 SOAP: Subjective: CC: foot infection HPI: 34 year old man with diabetes and infected left charcot joint s/p I&D and resection of involved bone, plan for BKA today. He has no fever, rash, or diarrhea. Tolerated amputation well. Does have pain at amp site today. Objective: Vital Signs Temp 37.3 C 05/21/19 07:18 Pulse 105 05/21/19 07:18 Resp 16 05/21/19 10:07 BP 148/90 05/21/19 07:18 Pulse Ox 92 05/21/19 08:00 Intake & Output 05/20/19 05/21/19 05/21/19 18:59 06:59 18:59 Intake Total 641 720 340 Output Total 1450 500 0 Balance -809 220 340 Intake: IV Fluids 20 15 NS 20 15 IVPB 325 ABX - LINEZOLID 325 Medicated IV 301 Linzolid 301 Oral 320 720 Output: Urine 1450 500 0 Other: # Bowel Movements 0 Gen:awake, no distress HEENT: no thrush Heart:RRR no murmur Lungs:CTA BL Abd:+BS NTND soft Skin: no rash MSK: L leg wrapped Laboratory Results - last 24 hr 05/20/19 05/20/19 05/20/19 12:31 16:51 21:05 POC Glucose (mg/dL) 141 H 78 105 H 05/21/19 07:52 POC Glucose (mg/dL) 141 H Microbiology 05/16/19 07:36 Aerobic Blood Culture - Final Blood Venous No Growth Day 5 Anaerobic Blood Culture - Final No Growth Day 5 05/16/19 06:32 Aerobic Blood Culture - Final Blood Venous No Growth Day 5 Anaerobic Blood Culture - Final No Growth Day 5 05/18/19 16:52 Anaerobic Culture - Preliminary Wound - Ankle No Growth Day 1 Gram Stain - Final Wound Culture - Preliminary No Growth Day 1 Assessment: 1. 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 s/p BKA 2. Acute kidney injury, could be due to vancomycin or ATN, resolving 3. IDDM 4. obesity Plan: 1. continue linezolid 600 mg IV Q12hrs, day 4; 1 of 4 BC pos and cleared quickly with known source so does not need correction IV antibiotics. Can use linezolid 600 mg po twice daily for discharge to finish 2 weeks of antibiotics ( should hold SSRI at home while on linezolid).
--- NOTE | 2019-05-21 13:41 | PN ---
Progress Note - Progress Note Date of Service: 05/21/19 SOAP: Subjective: []Pt seen at bedside. He has LLE pain rated 10/10 at amp site. Denies CP, SOB, dizziness, nausea, fever or chills. Has had elevated HR today. Objective: []Gen: NAD, nontoxic appearing LLE: splint removed, Incision CDI well approximated edges no discharge. Minimal tenderness of stump without any erythema. Soft dressing placed. Calves supple and nontender Assessment: []1. 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 s/p BKA 2. Acute kidney injury, could be due to vancomycin or ATN, resolving 3. IDDM 4. obesity Plan: NWB LLE Per ID: Continue linezolid 600 mg IV Q12hrs, day 4; 1 of 4 BC pos and cleared quickly with known source so does not need vermin exterminator IV antibiotics. Can use linezolid 600 mg po twice daily for discharge to finish 2 weeks of antibiotics ( should hold SSRI at home while on linezolid). Ready for DC from ortho standpoint metoprolol started today Precert for PMRU underway Vital Signs Temp 99.1 F 05/21/19 11:35 Pulse 102 05/21/19 11:35 Resp 18 05/21/19 12:21 BP 140/92 05/21/19 11:35 Pulse Ox 90 05/21/19 11:35 Intake & Output 05/20/19 05/21/19 05/21/19 18:59 06:59 18:59 Intake Total 641 720 340 Output Total 1450 500 0 Balance -809 220 340 Intake: IV Fluids 20 15 NS 20 15 IVPB 325 ABX - LINEZOLID 325 Medicated IV 301 Linzolid 301 Oral 320 720 Output: Urine 1450 500 0 Other: # Bowel Movements 0 Laboratory Last Values WBC 11.8 10^3/uL (3.5-10.8) H 05/19/19 05:19 RBC 3.83 10^6 /uL (4.18-5.48) L 05/19/19 05:19 Hgb 10.5 g/dL (14.0-18.0) L 05/19/19 05:19 Hct 32 % (42-52) L 05/19/19 05:19 MCV 83 fL (80-94) 05/19/19 05:19 MCH 28 pg (27-31) 05/19/19 05:19 MCHC 33 g/dL (31-36) 05/19/19 05:19 RDW 13 % (10-15) 05/19/19 05:19 Plt Count 373 10^3/uL (150-450) 05/19/19 05:19 MPV 6.9 fL (7.4-10.4) L 05/19/19 05:19 Neut % (Auto) 72.0 % 05/19/19 05:19 Lymph % (Auto) 12.6 % 05/19/19 05:19 [place] % (Auto) 12.2 % 05/19/19 05:19 Eos % (Auto) 2.4 % 05/19/19 05:19 Baso % (Auto) 0.8 % 05/19/19 05:19 Absolute Neuts (auto) 8.5 10^3/ul (1.5-7.7) H 05/19/19 05:19 Absolute Lymphs (auto) 1.5 10^3/ul (1.0-4.8) 05/19/19 05:19 Absolute Monos (auto) 1.4 10^3/ul (0-0.8) H 05/19/19 05:19 Absolute Eos (auto) 0.3 10^3/ul (0-0.6) 05/19/19 05:19 Absolute Basos (auto) 0.1 10^3/ul (0-0.2) 05/19/19 05:19 Absolute Nucleated RBC 0.0 10^3/ul 05/19/19 05:19 Nucleated RBC % 0.0 05/19/19 05:19 ESR 119 mm/Hr (0-14) H 05/13/19 13:21 INR (Anticoag Therapy) 1.33 (0.82-1.09) H 05/13/19 13:21 APTT 36.8 seconds (26.0-38.0) 05/13/19 13:21 Sodium 131 mmol/L (135-145) L 05/20/19 05:36 Potassium 4.3 mmol/L (3.5-5.0) 05/20/19 05:36 Chloride 103 mmol/L (101-111) 05/20/19 05:36 Carbon Dioxide 22 mmol/L (22-32) 05/20/19 05:36 Anion Gap 6 mmol/L (2-11) 05/20/19 05:36 BUN 17 mg/dL (6-24) 05/20/19 05:36 Creatinine 2.22 mg/dL (0.67-1.17) H 05/20/19 05:36 Est GFR ( Amer) 41.5 (>60) 05/20/19 05:36 Est GFR (Non-Af Amer) 34.3 (>60) 05/20/19 05:36 BUN/Creatinine Ratio 7.7 (8-20) L 05/20/19 05:36 Glucose 103 mg/dL (70-100) H 05/20/19 05:36 POC Glucose (mg/dL) 141 mg/dL (70-100) H 05/21/19 07:52 Hemoglobin A1c 12.0 % (4.0-5.6) H 05/14/19 05:39 Lactic Acid 0.8 mmol/L (0.5-2.0) 05/14/19 08:33 Calcium 7.8 mg/dL (8.6-10.3) L 05/20/19 05:36 Total Creatine Kinase 31 U/L (10-223) 05/17/19 06:19 C-Reactive Protein 333.27 mg/L (<8.01) H 05/13/19 13:21 Vancomycin Trough 34.5 mcg/mL H* 05/16/19 10:23 Random Vancomycin 14.2 mcg/mL 05/18/19 06:10
[2019-05-21] MEDS: Metoprolol Tartrate TAB* 25 MG PO SCH (20:36)
[2019-05-22] MEDS: Linezolid 600 MG IVPREMIX(*) 600 MG/300 ML BAG IVPB SCH ×2 (00:27→12:51)
[2019-05-22] MEDS: oxyCODONE TAB* 5 MG TAB PO PRN ×3 (04:06→12:51)
[2019-05-22 05:40] LABS: BUN/Creatinine Ratio 7.6 (8-20); Calcium 7.7 mg/dL (8.6-10.3); EGFR Non-African American 29.8 (>60); Potassium 4.5 mmol/L (3.5-5.0)
[2019-05-22] MEDS: Insulin REGULAR(*) 1 UNITS UNIT SUBCUT SCH ×4 (08:05→12:16)
[2019-05-22] MEDS: Heparin VIAL(*) 5000 UNITS/ML VIAL (FIVE THOUSAND) SUBCUT SCH (09:01)
[2019-05-22] MEDS: amLODIPine TAB* 5 MG PO SCH (09:01)
[2019-05-22] MEDS: Metoprolol Tartrate TAB* 25 MG PO SCH (09:01)
[2019-05-22] MEDS: Insulin NPH(*) 1 UNITS UNIT SUBCUT SCH (09:05)
--- NOTE | 2019-05-22 10:07 | PN ---
Progress Note - Progress Note Date of Service: 05/22/19 SOAP: Subjective: Pt seen at bedside. He states that the pain at his amp site is improving. He is hoping to go to PMRU rehab today. Denies CP, SOB, dizziness, nausea, fever or chills. Has had elevated HR today. Objective: []Gen: NAD, nontoxic appearing LLE: Dressing is c/d/i. Minimal tenderness of stump. Is able to flex and extend knee. Calf on contralateral side is non tender. Vital Signs Temp 97.9 F 05/22/19 08:32 Pulse 100 05/22/19 08:32 Resp 16 05/22/19 09:00 BP 160/85 05/22/19 08:32 Pulse Ox 92 05/22/19 08:32 Intake & Output 05/21/19 05/22/19 05/22/19 18:59 06:59 18:59 Intake Total 340 740 320 Output Total 0 0 Balance 340 740 320 Intake: IV Fluids 15 NS 15 IVPB 325 ABX - LINEZOLID 325 Oral 740 320 Output: Urine 0 0 Other: Estimated Void Large Medium # Bowel Movements 1 Estimated Stool Amount Medium # Voids 1 1 Assessment: []1. 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 s/p BKA 2. Acute kidney injury, could be due to vancomycin or ATN, resolving 3. IDDM 4. obesity Plan: NWB LLE Per ID: Continue linezolid 600 mg IV Q12hrs. 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 Can use linezolid 600 mg po twice daily for discharge to finish 2 weeks of antibiotics (should hold SSRI at home while on linezolid). Ready for DC from ortho standpoint Precert for PMRU underway, currently awaiting insurance approval.
--- NOTE | 2019-05-22 11:17 | DS ---
Orthopedic Discharge Summary - Discharge Summary Date of Admission:05/13/19 Date of Discharge: 05/22/2019 Date of Surgery: 05/14/19, 05/18/19 Attending Orthopedic Provider: Dr. Meier Pre-operative Diagnosis: Infected Charcot arthropathy, left talonavicular joint. Operative Procedure: I&D left hindfoot with talus and navicular excision, Left below the knee amputation. Disposition of Patient: [facility] Condition of Patient: GOOD History:Wilbert is a 34-year-old type 2 diabetic with a history of hypertension , hypercholesterolemia, and Charcot arthropathy, left hindfoot. The Charcot's changes have been going on for greater than a year now. He began having increased pain and swelling for the last 3 days when he presented to the emergency room with acute acute swelling and increasing pain. The radiographs revealed a fracture to the neck of the talus, which had had edema, edematous changes and some erosive changes previously on MRI and a largely swollen effusion at the ankle. He underwent an I&D of the left hindfoot with talus and navicular excision and then a left below the knee amputation. Hospital Course: WILBERT was admitted to [facility] on 05/13/19. Patient underwent a left I&D hindfoot with talus and navicular excision. without complication followed by a brief recovery in PACU and transfer to the 4th floor in stable condition. Our hospitalist service, Infectious disease, physical therapy and occupational therapy also participated in this patients care. Post-op day 1: patient was alert and in no acute distress. Dressing was clean, dry and intact. Vancomycin was continued at this point. Operative extremity was in a splint. Post-op day two: MRSA was found to be growing in blood cultures. Discussion of a left BKA was discussed with the pt. He understood. POD 3 pt was made NPO. POD 4 pt had LBKA. POD 1 of left BKA the dressing was c/d/i. ID consulted and placed the pt on start linezolid 600 mg IV Q12hrs. 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 Can use linezolid 600 mg po twice daily for discharge to finish 2 weeks of antibiotics (should hold SSRI at home while on linezolid). POD 4 Patient was deemed to be medically and orthopedically stable for discharge to [facility]. Home Medications Medication Instructions Recorded Confirmed Type Acetaminophen [Acetaminophen Extra 2 tab PO Q6H PRN 03/27/18 12/26/18 History Strength] Fluoxetine HCl 40 mg PO QAM 03/27/18 12/26/18 History Insulin LISPRO* [HumaLOG*] 20 units SUBCUT ACHS 03/27/18 12/26/18 History Lisinopril 20 mg PO QAM 03/27/18 12/26/18 History Omeprazole CAP (NF) [Prilosec CAP* 40 mg PO QAM 03/27/18 12/26/18 History 20 MG] metFORMIN* [Glucophage 1000 MG TAB 1,000 mg PO BID 03/27/18 12/26/18 History *] Basaglar Kwikpen U-100 30 units SUBCUT BEDTIME 12/26/18 12/26/18 History Discharge Instructions following Orthopedic Surgery: Activity: * NWB LLE * Continue physical therapy and occupational therapy exercises as shown Call Orthopedic office for: * Increased drainage * Redness * Increased pain * Fever Go to ER with shortness of breath or chest pain. Diet: * Diabetic Diet * Increase fluids and fiber to prevent constipation. * Continue to use stool softeners, call office if no bowel motion within 48 hours. Medications See Home Medication List in your packet for medications that you should take after discharge. DVT Prophylaxis: Heparin 5000 units sub q bid. Pain Control: Oxycodone 10mg 1 tab by mouth every 4-6 hours as needed for pain. Maximum of 10 tabs per day. Per ID: Continue linezolid 600 mg IV Q12hrs. 1 of 4 BC pos and cleared quickly with known source so does not need watcher automat long goods IV antibiotics. Can use linezolid 600 mg po twice daily for discharge to finish 2 weeks of antibiotics (should hold SSRI at home while on linezoli
[2019-05-22] MEDS ORDERED: Insulin REGULAR(*) 1 UNITS UNIT SUBCUT SCH (12:00)
[2019-05-22 13:05] VITALS: BP 143/85
--- NOTE | 2019-05-22 13:48 | PN ---
Progress Note - Progress Note Date of Service: 05/22/19 SOAP: Subjective: CC: Left foot infection HPI: Mr. Car is a 34 yo male with PMH significant for DM2, obesity, HTN, HLD , anxiety, and charcot arthropathy. Denies fever, chills, nausea, vomiting, or diarrhea. He has been having low blood sugars today, down to 50's. He glucose is 100 at this time. Objective: Vital Signs 05/22/19 05/22/19 05/22/19 11:00 12:15 12:51 Temperature 96.7 F Pulse Rate 100 Respiratory 16 18 16 Rate Blood Pressure 143/85 (mmHg) O2 Sat by Pulse 93 Oximetry Physical Exam: General: NAD, sitting up in bed Neurological: Alert and Oriented HEENT: Moist MM, no thrush Cardiovascular: Heart rate regular Respiratory: Lung sounds clear Abdominal: Bowel sounds present; ABD soft, non tender and large Skin: DACIA wrap dressing to the left LE stump, clean dry and intact. No extending erythema Laboratory Results - last 24 hr 05/22/19 05/22/19 05/22/19 04:58 11:42 12:10 Sodium 133 L Potassium 4.5 Chloride 100 L Carbon Dioxide 27 Anion Gap 6 BUN 19 Creatinine 2.51 H Est GFR ( Amer) 36.0 Est GFR (Non-Af Amer) 29.8 BUN/Creatinine Ratio 7.6 L Glucose 112 H POC Glucose (mg/dL) 53 L 72 Calcium 7.7 L Microbiology 05/18/19 16:52 Anaerobic Culture - Preliminary Wound - Ankle No Growth Day 3 Gram Stain - Final Wound Culture - Preliminary No Growth Day 3 05/16/19 07:36 Aerobic Blood Culture - Final Blood Venous No Growth Day 5 Anaerobic Blood Culture - Final No Growth Day 5 05/16/19 06:32 Aerobic Blood Culture - Final Blood Venous No Growth Day 5 Anaerobic Blood Culture - Final No Growth Day 5 05/13/19 14:22 Aerobic Blood Culture - Final Blood Venous No Growth Day 5 Anaerobic Blood Culture - Final No Growth Day 5 05/13/19 14:18 Aerobic Blood Culture - Final Blood Venous No Growth Day 5 Anaerobic Blood Culture - Final MRSA Blood MRSA/MSSA (PCR) - Final Mrsa Positive S.aureus Positive 05/14/19 16:08 Anaerobic Culture - Final Wound 05/14/19 16:08 Skin and Soft Tissue MRSA/MSSA (PCR - Final Ankle Left Mrsa Positive S.aureus Positive Gram Stain - Final Wound Culture - Final MRSA Assessment: 1. 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 1 of 4 blood cultures positive for MRSA and cleared quickly. Wound culture with MRSA. Initially S/P debridement of the left hindfoot with talus and navicular excision. S/P left BKA, POD #4. Pathology with acute and chronic osteomyelitis involving tibial resection margin. Afebrile and no leukocytosis. 2. Acute kidney injury. Possibly due to vancomycin or ATN. Resolving. 3. DM2. 4. Obesity. BMI ~ 45. Plan: Continue linezolid 600 mg IV Q12hrs, day 5/42-56 (should hold SSRI at home while on linezolid). Will need to have weekly labs while on ABX: CBC, CMP, and CRP. He will eventually need to have a PICC line placed, but the patient would like to wait for now (the adhesive used caused significant skin irritation in the past). 25 minutes floor time: > 50% spent discussing surgical pathology results, need for a long course of IV ABX, home IV ABX once discharged from [facility], and close followup. All questions answered.
[2019-05-22] MEDS ORDERED: Insulin NPH(*) 1 UNITS UNIT SUBCUT SCH (21:00)
== END 2019-05-22 14:30 | DRG 305 ==
LOC: MED 12:24 → SSU 05-18 18:49
PROVIDERS: ADMIT Orthopaedic Surgery; ATTEND Orthopaedic Surgery
PROC: 0QBM0ZZ Excision of Left Tarsal, Open Approach (ICD-10-PCS; 2019-05-16)
PROC: 0Y6J0Z2 Detachment at Left Lower Leg, Mid, Open Approach (ICD-10-PCS; principal; 2019-05-19)
DX: E11.69 Type 2 diabetes mellitus with other specified complication (principal); M86.162 Other acute osteomyelitis, left tibia and fibula; M86.462 Chronic osteomyelitis with draining sinus, left tibia and fibula; R78.81 Bacteremia; L02.612 Cutaneous abscess of left foot; M00.072 Staphylococcal arthritis, left ankle and foot; Z68.42 Body mass index [BMI] 45.0-49.9, adult; E11.610 Type 2 diabetes mellitus with diabetic neuropathic arthropathy; E11.649 Type 2 diabetes mellitus with hypoglycemia without coma; I10 Essential (primary) hypertension; E78.00 Pure hypercholesterolemia, unspecified; E78.5 Hyperlipidemia, unspecified; F41.9 Anxiety disorder, unspecified; N17.9 Acute kidney failure, unspecified; B95.62 Methicillin resistant Staphylococcus aureus infection as the cause of diseases classified elsewhere; T36.8X5A Adverse effect of other systemic antibiotics, initial encounter; E11.65 Type 2 diabetes mellitus with hyperglycemia; E66.01 Morbid (severe) obesity due to excess calories; M62.838 Other muscle spasm; E11.40 Type 2 diabetes mellitus with diabetic neuropathy, unspecified; K21.9 Gastro-esophageal reflux disease without esophagitis; Z79.4 Long term (current) use of insulin; Y92.9 Unspecified place or not applicable; Z89.421 Acquired absence of other right toe(s); Z23 Encounter for immunization
CPT/HCPCS: 36415; 80048; 80202; 82550; 82565; 83036; 83605; 84520; 85025; 85610; 85652; 85730; 86140; 87040; 87070; 87073; 87077; 87150; 87186; 87205; 87640; 87641; 88304; 88307; 88311; 90686; 93005; A9270-GY; J0330; J0360; J0690; J0692; J1170; J1240; J1644; J2020; J2250; J2270; J2405; J2704; J3010; J3370; J3490

== ENCOUNTER 2019-05-22 11:06 | Inpatient (IN) | payer OTHER ==
[2019-05-22] MEDS ORDERED: Magnesium Hydroxide LIQ* 30 ML UDC PO PRN (15:49)
[2019-05-22] MEDS ORDERED: Insulin REGULAR(*) 1 UNITS UNIT SUBCUT SCH (16:30)
[2019-05-22] MEDS: Insulin REGULAR(*) 1 UNITS UNIT SUBCUT SCH (16:58)
[2019-05-22] MEDS: Carisoprodol TAB* 350 MG PO PRN ×2 (16:59→22:11)
[2019-05-22] MEDS: oxyCODONE TAB* 5 MG TAB PO PRN (19:23)
[2019-05-22] MEDS: Senna TAB 8.6 mg* TAB PO SCH (21:29)
[2019-05-22] MEDS: Docusate CAP* 100 MG PO SCH (21:29)
[2019-05-22] MEDS: Heparin VIAL(*) 5000 UNITS/ML VIAL (FIVE THOUSAND) SUBCUT SCH (21:30)
[2019-05-22] MEDS: Metoprolol Tartrate TAB* 25 MG PO SCH (21:37)
--- NOTE | 2019-05-22 21:55 | HP ---
ADMISSION HISTORY AND PHYSICAL: DATE OF ADMISSION: 05/22/19 REASON FOR ADMISSION: Left mjnhj-[id number]-hete amputation. HISTORY OF PRESENT ILLNESS: Malik Car is a 34-year-old insulin-dependent diabetic. He normally sees Mohit Felton at [facility] for his diabetes. He has a history of having had a right great toe amputation in the past. He also has a history of obesity and Charcot arthropathy as well as hyperlipidemia. The patient apparently has had difficulty with his left ankle for about a year and he has been following with Dr. Meier. About 2 or 3 weeks ago, he had swelling and pain in his ankle. He went to the emergency room. He was referred to Dr. Meier's office. Dr. Meier apparently withdrew some fluid of the ankle and then sent him to the emergency room. He was admitted to the hospital for a planned open debridement. The patient was admitted to the hospital on 05/13/19. He was taken to the operating room. He was started on IV vancomycin and was seen by Dr. Quintero. His creatinine hilda to 2.92 when his vancomycin had to be stopped. Dr. Meier saw him in followup and felt that he needed another amputation because of his level of osteomyelitis. He was taken back to the operating room on 05/18/19 and underwent a left transtibial amputation. Postoperatively, he has been on IV antibiotics. He is currently on IV Zyvox. His left ankle cultures did grow out MRSA. He also had MRSA in his blood. He continues on IV Zyvox. He had some difficulties with his diabetes. His blood sugars were at first too high and then too low. He was seen in consultation by Dr. Timothy Lux. The patient was felt to have physical therapy and occupational therapy needs. He is now being admitted for inpatient rehab so that he might return to independent living. PAST MEDICAL HISTORY: Significant for the aforementioned diabetes as well as obesity. He has a history of hyperlipidemia as well and hypertension. CURRENT MEDICATIONS: Include: 1. Norvasc. 2. Soma. 3. Heparin for DVT prophylaxis. 4. NPH insulin. 5. Regular insulin. 6. IV Zyvox. 7. Lopressor. 8. Oxycodone. 9. Senokot. ALLERGIES: To SULFA. SOCIAL HISTORY: He is a nonsmoker, rare drinker. Lives with his parents in a 1 -story apartment. REVIEW OF SYSTEMS: The patient reports no current shortness of breath or chest pain. PHYSICAL EXAMINATION VITAL SIGNS: The patient's temperature is 96.7, blood pressure is 143/85, pulse is 90, respirations 18. HEENT: His extraocular movements are intact. NECK: Supple. LUNGS: Sounded clear to auscultation bilaterally. HEART: Sounds are regular, S1 and S2 audible. ABDOMEN: Soft and nontender. EXTREMITIES: Right foot was slightly edematous. He is missing the first digit of his right foot. Left BKA site was wrapped, slightly swollen. NEUROLOGIC: He may have had slightly decreased sensation in his right foot. Muscle strength appeared to be 5/5 in both upper and lower extremities. FUNCTIONAL EXAM: He transfers with min assist. ASSESSMENT: Left [id number] amputation in an insulin-dependent diabetic. PLAN: Integrate him into a comprehensive and therapeutic rehab program with the following goals: 1. Physical Therapy will work with the patient. They are going to work on functional transfer training, ambulation training with a walker. 2. Occupational Therapy will see the patient and work on his activities of daily living including toileting and toilet transfers. 3. Heparin for DVT prophylaxis. 4. For his diabetes, we are going to continue his NPH and regular insulin with meals. We may need to decrease his insulin further. 5. Continue IV Zyvox per infectious disease. 6. Adequate analgesia. 7. Continue antihypertensives. 8. We will order a stump cryptographic machine operator before discharge. 9. rn medical inpatient services will be closely involved to make sure that any services and equipment the patient requires are in place prior to discharge. 10. Family training as appropriate. 11. Home with appropriate services. ESTIMATED LENGTH OF STAY: 1 week. [id number]/[facility] #: [id number] MIKKI
[2019-05-22] MEDS: Insulin NPH(*) 1 UNITS UNIT SUBCUT SCH (22:10)
[2019-05-23] MEDS: Linezolid 600 MG IVPREMIX(*) 600 MG/300 ML BAG IVPB SCH ×3 (00:10→23:38)
[2019-05-23] MEDS: oxyCODONE TAB* 5 MG TAB PO PRN ×4 (00:22→18:38)
[2019-05-23] MEDS: Carisoprodol TAB* 350 MG PO PRN ×2 (08:52→15:40)
[2019-05-23] MEDS: amLODIPine TAB* 5 MG PO SCH (08:54)
[2019-05-23] MEDS: Docusate CAP* 100 MG PO SCH ×3 (08:54→20:52)
[2019-05-23] MEDS: Metoprolol Tartrate TAB* 25 MG PO SCH ×2 (08:55→20:52)
[2019-05-23] MEDS: Insulin REGULAR(*) 1 UNITS UNIT SUBCUT SCH ×3 (08:56→17:21)
[2019-05-23] MEDS: Insulin NPH(*) 1 UNITS UNIT SUBCUT SCH ×2 (08:57→20:51)
[2019-05-23] MEDS: Heparin VIAL(*) 5000 UNITS/ML VIAL (FIVE THOUSAND) SUBCUT SCH ×2 (08:58→20:51)
[2019-05-23] MEDS: Acetaminophen TAB* 325 MG PO PRN ×2 (13:17→20:52)
[2019-05-23] MEDS ORDERED: Insulin REGULAR(*) 1 UNITS UNIT SUBCUT ONE (18:00)
--- NOTE | 2019-05-23 18:31 | PN ---
Progress Note Date of Service: 05/23/19 Note: WILBERT PONCE was visited. Therapy notes read and reviewed. He had a low finger stick before dinner tonight. I think I need to lower his NPH. Pain controlled. No complaints Current Medications: Active Medications Generic Name Dose Route Start Last Admin Trade Name Freq PRN Reason Stop Dose Admin Acetaminophen 650 mg 05/22/19 15:49 05/23/19 13:17 Tylenol Tab* PO 650 mg Q6H PRN Administration MILD PAIN or TEMP > 100.4 Amlodipine Besylate 10 mg 05/23/19 09:00 05/23/19 08:54 Norvasc Tab* PO 10 mg DAILY MICHAEL Administration Carisoprodol 350 mg 05/22/19 15:57 05/23/19 15:40 Soma Tab* PO 350 mg TID PRN Administration SPASMS Docusate Sodium 100 mg 05/22/19 21:00 05/23/19 10:40 Colace Cap* PO 100 mg BID MICHAEL Administration Heparin Sodium (Porcine) 5,000 units 05/22/19 21:00 05/23/19 08:58 Heparin Vial(*) SUBCUT 5,000 units Q12HR MICHAEL Administration Linezolid 600 mg in 300 mls @ 300 mls/hr 05/23/19 00:01 05/23/19 12:32 Zyvox 600 Mg Ivpremix(*) IVPB 300 mls/hr Q12H MICHAEL Administration Insulin Human Regular 14 units 05/22/19 16:30 05/23/19 17:21 Insulin Regular(*) SUBCUT Not Given AC MICHAEL Magnesium Hydroxide 30 ml 05/22/19 15:49 Milk Of Magnesia Liq* PO Q6H PRN CONSTIPATION Metoprolol Tartrate 12.5 mg 05/22/19 21:00 05/23/19 08:55 Lopressor Tab* PO 12.5 mg Q12HR MICHAEL Administration Oxycodone HCl 10 mg 05/22/19 16:01 05/23/19 10:40 Roxycodone Tab* PO 10 mg Q4H PRN Administration PAIN - SEVERE Senna 2 tab 05/22/19 21:00 05/22/19 21:29 Senokot 8.6 Mg Tab* PO 2 tab BEDTIME MICHAEL Administration Vital Signs: Vital Signs Temp Pulse Resp BP Pulse Ox 97.4 F 95 16 139/91 93 05/23/19 17:14 05/23/19 17:14 05/23/19 17:14 05/23/19 17:14 05/23/19 17:14 Lab Results: Laboratory Results - last 24 hr 05/22/19 05/23/19 05/23/19 21:27 07:53 12:11 POC Glucose (mg/dL) 119 H 127 H 132 H 05/23/19 05/23/19 16:18 16:48 POC Glucose (mg/dL) 67 L 102 H Exam: HEENT: EOMI, NC/AT LUNGS: Clear bilaterally HEART: Regular rhythm ABDOMEN: Soft, +BS EXTREMITIES: Left stump looks bulbous NEUROLOGIC: A&O. Decreased sensation Assessment/Plan: 1. Left BKA: PT/OT. Will need stump peritoneal dialysis registered nurse 2. Diabetes: Decrease NPH to 28 BID 3. HTN: Lopressor/Norvasc 4. DVT Prophylaxis: Heparin 5. Osteomyelitis with MRSA: Zyvox 05/23/19 18:30 05/23/19 18:31 05/23/19 18:32
[2019-05-23] MEDS: Senna TAB 8.6 mg* TAB PO SCH (20:52)
[2019-05-24] MEDS: oxyCODONE TAB* 5 MG TAB PO PRN ×4 (00:55→21:09)
[2019-05-24] MEDS: Metoprolol Tartrate TAB* 25 MG PO SCH ×2 (09:35→21:09)
[2019-05-24] MEDS: amLODIPine TAB* 5 MG PO SCH (09:35)
[2019-05-24] MEDS: Carisoprodol TAB* 350 MG PO PRN (09:37)
[2019-05-24] MEDS: Heparin VIAL(*) 5000 UNITS/ML VIAL (FIVE THOUSAND) SUBCUT SCH ×2 (09:38→21:08)
[2019-05-24] MEDS: Docusate CAP* 100 MG PO SCH ×2 (09:48→21:09)
[2019-05-24] MEDS: Insulin REGULAR(*) 1 UNITS UNIT SUBCUT SCH ×2 (10:50→15:38)
[2019-05-24] MEDS ORDERED: Insulin NPH(*) 1 UNITS UNIT SUBCUT ONE (10:56)
[2019-05-24] MEDS: Insulin NPH(*) 1 UNITS UNIT SUBCUT SCH ×2 (11:11→21:08)
[2019-05-24] MEDS: Linezolid 600 MG IVPREMIX(*) 600 MG/300 ML BAG IVPB SCH (11:50)
--- NOTE | 2019-05-24 16:27 | PN ---
Progress Note Date of Service: 05/24/19 Note: WILBERT PONCE was visited. Nursing notes read and reviewed. His blood sugars are still running low. He did not get any regular insulin due to low blood sugars. Will lower regular insulin to 8 units with meals and lower NPH to 24 BID. Current Medications: Active Medications Generic Name Dose Route Start Last Admin Trade Name Freq PRN Reason Stop Dose Admin Acetaminophen 650 mg 05/22/19 15:49 05/23/19 20:52 Tylenol Tab* PO 650 mg Q6H PRN Administration MILD PAIN or TEMP > 100.4 Amlodipine Besylate 10 mg 05/23/19 09:00 05/24/19 09:35 Norvasc Tab* PO 10 mg DAILY MICHAEL Administration Carisoprodol 350 mg 05/22/19 15:57 05/24/19 09:37 Soma Tab* PO 350 mg TID PRN Administration SPASMS Docusate Sodium 100 mg 05/22/19 21:00 05/24/19 09:48 Colace Cap* PO Not Given BID MICHAEL Heparin Sodium (Porcine) 5,000 units 05/22/19 21:00 05/24/19 09:38 Heparin Vial(*) SUBCUT 5,000 units Q12HR MICHAEL Administration Linezolid 600 mg in 300 mls @ 300 mls/hr 05/23/19 00:01 05/24/19 11:50 Zyvox 600 Mg Ivpremix(*) IVPB 300 mls/hr Q12H MICHAEL Administration Insulin Human NPH 24 units 05/24/19 21:00 05/24/19 10:59 Insulin Nph(*) SUBCUT 24 units BID MICHALE Administration Insulin Human Regular 14 units 05/22/19 16:30 05/24/19 15:38 Insulin Regular(*) SUBCUT Not Given AC MICHAEL Magnesium Hydroxide 30 ml 05/22/19 15:49 Milk Of Magnesia Liq* PO Q6H PRN CONSTIPATION Metoprolol Tartrate 12.5 mg 05/22/19 21:00 05/24/19 09:35 Lopressor Tab* PO 12.5 mg Q12HR MICHAEL Administration Oxycodone HCl 10 mg 05/22/19 16:01 05/24/19 09:37 Roxycodone Tab* PO 10 mg Q4H PRN Administration PAIN - SEVERE Senna 2 tab 05/22/19 21:00 05/23/19 20:52 Senokot 8.6 Mg Tab* PO 2 tab BEDTIME MICHAEL Administration Vital Signs: Vital Signs Temp Pulse Resp BP Pulse Ox 98.7 F 96 16 130/81 97 05/24/19 15:30 05/24/19 15:30 05/24/19 15:30 05/24/19 15:30 05/24/19 15:30 Lab Results: Laboratory Results - last 24 hr 05/23/19 05/23/19 05/23/19 07:53 12:11 16:18 POC Glucose (mg/dL) 127 H 132 H 67 L 05/23/19 05/23/19 05/24/19 16:48 20:21 00:48 POC Glucose (mg/dL) 102 H 97 67 L 05/24/19 01:59 POC Glucose (mg/dL) 73 Exam: HEENT: EOMI, NC/AT LUNGS: Clear bilaterally HEART: Regular rhythm ABDOMEN: Soft, +BS EXTREMITIES: Left stump looks bulbous NEUROLOGIC: A&O. Decreased sensation Assessment/Plan: 1. Left BKA: PT/OT. Will need stump rubber heel and sole press tender 2. Diabetes: Decrease NPH to 24 BID; decrease regular to 8 units with meals 3. HTN: Lopressor/Norvasc 4. DVT Prophylaxis: Heparin 5. Osteomyelitis with MRSA: Zyvox 05/24/19 16:27
[2019-05-24] MEDS ORDERED: Insulin REGULAR(*) 1 UNITS UNIT SUBCUT SCH (16:30)
[2019-05-24] MEDS ORDERED: Insulin NPH(*) 1 UNITS UNIT SUBCUT SCH (21:00)
[2019-05-24] MEDS: Senna TAB 8.6 mg* TAB PO SCH (21:09)
[2019-05-25] MEDS: Linezolid 600 MG IVPREMIX(*) 600 MG/300 ML BAG IVPB SCH ×2 (00:11→12:11)
[2019-05-25] MEDS: oxyCODONE TAB* 5 MG TAB PO PRN ×4 (03:40→17:27)
[2019-05-25 05:00] LABS: ABS Basophils 0.1 10^3/ul (0-0.2); ABS Eosinophils 0.4 10^3/ul (0-0.6); ABS Lymphocytes 1.8 10^3/ul (1.0-4.8); ABS Monocytes 1.1 10^3/ul (0-0.8); ABS Neutrophils 6.3 10^3/ul (1.5-7.7); Eosinophil % 3.9 %; Hematocrit 29 % (42-52); Hemoglobin 9.9 g/dL (14.0-18.0); Lymphocyte % 18.8 %; Mean Corpuscular HGB Conc 35 g/dL (31-36); Mean Corpuscular Hemoglobin 28 pg (27-31); Mean Corpuscular Volume 81 fL (80-94); Mean Platelet Volume 5.8 fL (7.4-10.4); Platelet Count 330 10^3/uL (150-450); Red Blood Count 3.56 10^6 /uL (4.18-5.48); Red Cell Distribution Width 13 % (10-15); White Blood Count 9.7 10^3/uL (3.5-10.8)
[2019-05-25 05:16] LABS: Albumin 2.5 g/dL (3.2-5.2); Albumin/Globulin Ratio 0.7 (1-3); BUN/Creatinine Ratio 7.4 (8-20); Calcium 8.2 mg/dL (8.6-10.3); EGFR African American 37.2 (>60); EGFR Non-African American 30.7 (>60); Globulin 3.7 g/dL (2-4); Potassium 4.7 mmol/L (3.5-5.0); Total Bilirubin 0.4 mg/dL (0.2-1.0); Total Protein 6.2 g/dL (6.4-8.9)
[2019-05-25] MEDS: Metoprolol Tartrate TAB* 25 MG PO SCH ×2 (08:01→21:21)
[2019-05-25] MEDS: amLODIPine TAB* 5 MG PO SCH (08:02)
[2019-05-25] MEDS: Insulin REGULAR(*) 1 UNITS UNIT SUBCUT SCH ×3 (08:03→17:26)
[2019-05-25] MEDS: Docusate CAP* 100 MG PO SCH ×2 (08:03→21:21)
[2019-05-25] MEDS: Heparin VIAL(*) 5000 UNITS/ML VIAL (FIVE THOUSAND) SUBCUT SCH ×2 (08:03→21:21)
[2019-05-25] MEDS: Insulin NPH(*) 1 UNITS UNIT SUBCUT SCH ×2 (08:53→21:22)
--- NOTE | 2019-05-25 13:10 | PMRUTEAM ---
PMRU: Team Meeting Current Status: Physical Therapy: Current Status Current Rolling Status Independent Current Supine <-> Sit Status Independent Current Sit <-> Stand Status Supervision/Touching Current Bed <-> Chair Status Supervision/Touching Transfer/Bed Mobility Rolling Walker Recommended Devices Current Picking Up Object Not attempted Status Current Car Transfer Status Not attempted Current Ambulation Assistance Partial/Moderate Status Ambulation Assistive Device Rolling Walker Ambulation Conditions Two or More Turns Current Ambulation Distance 30 Manual Wheelchair Control/ Bilateral UE's Technique Current Wheelchair Propulsion Setup or Clean-up Assist Ability Status Wheelchair Distance (ft) 175 Current Stair Climbing Status Not attempted Stair Climbing Assistive None Devices Current Curb Assistance Status Not attempted Occupational Therapy: Current Status Current Upper Body Dressing Setup or Clean-up Assist Status Current Lower Body Dressing Supervision/Touching Status Current Footwear Status Setup or Clean-up Assist Current Bathing Status Supervision/Touching Current Grooming Status Setup or Clean-up Assist Current Toileting Status Supervision/Touching Current Toilet Transfer Status Supervision/Touching Current Eating Status Independent Nursing: Current Status Skin Deviations [left bka- Incision stump] Skin Deviations [Left Leg] Incision Skin Deviation Description [ drsg in place left bka-stump] Skin Deviation Description [ below the knee amputation Left Leg] not visualized, drsg cdi Rec Therapy: Current Status Summary of Assessment and Pt. was open to conversation - appropriate and Clinical Impression cooperative throughout. Pt. identified with interests and involvement in most of them prior to admission. Provided pt. with word search puzzles . Pt. was open to continued leisure visits. Treatment Goals Pt. will engage in leisure activities while on the unit. Treatment Plan Provide recreation therapy services and encourage involvement. Goals: Physical Therapy: Goals Goals to Be Accomplished in ( 7-10 Days) Goal: Rolling Assistance Independent Goal Supine <-> Sit Status Independent Goal Sit <-> Stand Status Independent Goal Bed <-> Chair Status Independent Transfer/Bed Mobility None,Rolling Walker Recommended Devices Goal: Picking Up Object Independent Goal: Car Transfer Status Setup or Clean-up Assist Ambulation Assistive Devices Rolling Walker Ambulation Distance (ft) 50 Goal: Wheelchair Propulsion Independent Ability Wheelchair Distance (ft) 150 Goal: Stairs Assistance Not Applicable Goal: Curb Assistance Not Applicable Goal: Home Exercise Program Independent Assistance Occupational Therapy: Goals Goals to be Completed in (Days 30 ) Goal Lower Body Dressing Independent Routine Goal Footwear Status Independent Goal Bathing Routine (OT) Independent Goal Toilet Hygiene and Independent Clothing Management Routine Goal Toilet Transfer Routine Independent Goal Functional Transfers for Independent ADL Care Plan: Care Plan Coping/Psych-Improve/Maintain Start: 05/23/19 02:17 Freq: DAILY@0700,1900 Status: Active Target: 05/29/19 Protocol: Activity Type Activity Date Activity User E-Sign Co-Sign Detail Recorded Client Recorded Date Recorded By Document 05/25/19 08:12 [id number] [id number] 05/25/19 08:13 [id number] 05/25/19 08:12 PMRU Outcome: Coping/Psychosocial Current Coping Outcome/Goals Verbalization of Acceptance of Rehab Admit Verbalization of Sense of Control Over Health Status Willingness to Participate in Treatment Plan and Basic Needs Progression Toward Outcome/Goals Progressing Current Psychosocial Outcome/Goals Maintain/ Improve Emotional Health Demonstrates Knowledge of Healthy Coping Mechanisms Available Cooperate/ Participate in Plan Progression Toward Outcome/Goals Progressing DVT Prophylaxis- Improve/Maintain Start: 05/23/19 02:17 Freq: DAILY@07,1899 Status: Active Target: 05/29/19 Protocol: Activity Type Activity Date Activity User E-Sign Co-Sign Detail Recorded Client Recorded Date Recorded By Document 05/25/19 08:12 [id number] [id number] 05/25/19 08:13 [id number] 05/25/19 08:12 PMRU Outcome: DVT Prophylaxis Current DVT Outcome/Goals Remains Free of DVT Complies with DVT Prophylaxis /Treatment Demonstrates Knowledge of DVT Prevention/ Treatment Progression Toward Outcome/Goals Progressing Discharge Planning - Improve/Maintain Start: 05/23/19 02:17 Freq: DAILY@07,1899 Status: Active Target: 05/29/19 Protocol: Activity Type Activity Date Activity User E-Sign Co-Sign Detail Recorded Client Recorded Date Recorded By Document 05/25/19 08:12 [id number] [email or web address] 05/25/19 08:13 [id number] 05/25/19 08:12 PMRU Outcome: Discharge Planning Update Patient Family Yes Current Discharge Planning Outcome/Goals Demonstrates Understanding of Discharge Plan Homecare Referral - See Comment Progression Toward Outcome/Goals Progressing Education-Improve/Maintain Start: 05/23/19 02:17 Freq: DAILY@0700,1900 Status: Active Target: 05/29/19 Protocol: Activity Type Activity Date Activity User E-Sign Co-Sign Detail Recorded Client Recorded Date Recorded By Document 05/25/19 08:12 [id number] [email or web address] 05/25/19 08:13 [id number] 05/25/19 08:12 PMRU Outcome: Education Current Education Outcome/Goals Demonstrate/ Verbalize Understanding of Written Discharge Instructions Demonstrates Skills Encourage Questions Progression Toward Outcome/Goals Progressing /GI-Improve/Maintain Start: 05/23/19 02:17 Freq: DAILY@0700,1900 Status: Active Target: 05/29/19 Protocol: Activity Type Activity Date Activity User E-Sign Co-Sign Detail Recorded Client Recorded Date Recorded By Document 05/25/19 08:12 [id number] [email or web address] 05/25/19 08:13 [id number] 05/25/19 08:12 PMRU Outcome: Genitourinary/ Gastrointestinal Current Gastrointestinal Outcome/Goals Maintain/ Achieve Bowel Regularity in Accordance with Pt's Baseline Remain Free of Emesis Prevent Constipation Laxatives as Ordered Progression Toward Outcome/Goals Progressing Current Genitourinary Outcome/Goals Maintain/ Achieve Adequate Urinary Output Remain Free of Hospital- Acquired UTI Progression Toward Outcome/Goals Progressing Metabolic Status- Improve/Maintain Start: 05/23/19 02:17 Freq: DAILY@0700,1900 Status: Active Target: 05/29/19 Protocol: Activity Type Activity Date Activity User E-Sign Co-Sign Detail Recorded Client Recorded Date Recorded By Document 05/25/19 08:12 [id number] [email or web address] 05/25/19 08:13 [id number] 05/25/19 08:12 PMRU Outcome: Metabolic Status Have Fingersticks Been Ordered Yes Fingerstick Order Frequency AC & HS Current Metabolic Status Outcome/Goals Maintain/ Improve Metabolic Status Demonstrate Knowledge of Prevention/ Treatment of Metabolic Imbalances Progression Toward Outcome/Goals Progressing Mobility- Improve/Maintain Start: 05/22/19 16:30 Freq: DAILY@0700,1900 Status: Active Target: 05/23/19 Protocol: Activity Type Activity Date Activity User E-Sign Co-Sign Detail Recorded Client Recorded Date Recorded By Document 05/22/19 16:30 [id number] [email or web address] 05/22/19 16:31 [id number] 05/22/19 16:30 PMRU Outcome: Mobility Physical Therapy Evaluation and Yes Treatment Activity OOB with Assistance Yes WBAT No NWB Yes TTWB No Device Yes Assistance Yes Patient to be seen 5x/wk for 60-120 min/ Therex day for: Mobility Training Gait Training W/C Mobility Balance Current Mobility Outcome/Goals Maintain/ Achieve Baseline Mobility Status Progression Toward Outcome/Goals Goal Initiation Bed Mobility Yes: independent Transfers Yes: independent with RW Gait x ft Yes: 50' independent with RW W/C Mobility x ft Yes: 150' independent Up/Down Stairs No With HEP Yes: independent Neurological- Improve/Maintain Start: 05/23/19 02:17 Freq: DAILY@699,1899 Status: Active Target: 05/29/19 Protocol: Activity Type Activity Date Activity User E-Sign Co-Sign Detail Recorded Client Recorded Date Recorded By Document 05/25/19 08:12 [id number] [email or web address] 05/25/19 08:13 [id number] 05/25/19 08:12 PMRU Outcome: Neurological Weakness/Aphasia Weakness Current Neurological Outcome/Goals Maintain/ Achieve Baseline Neurological Status Prevent Avoidable Neurological Decline Maintain/ Improve Strength/ROM Progression Toward Outcome/Goals Progressing Pain/Comfort- Improve/Maintain Start: 05/23/19 02:17 Freq: DAILY@699,1899 Status: Active Target: 05/29/19 Protocol: Activity Type Activity Date Activity User E-Sign Co-Sign Detail Recorded Client Recorded Date Recorded By Document 05/25/19 08:12 [id number] [email or web address] 05/25/19 08:13 [id number] 05/25/19 08:12 PMRU Outcome: Pain/Comfort Current Pain/Comfort Outcome/Goals Demonstrates Knowledge and Use of Available Comfort Measures Achieves Acceptable Comfort/Pain Level as Determined by Patient/Condit Maintain Comfort Level Allowing Patient to Fully Participate in Rehab Progression Toward Outcome/Goals Progressing Safety- Improve/Maintain Start: 05/22/19 16:00 Freq: DAILY@699,1899 Status: Active Target: 05/29/19 Protocol: Activity Type Activity Date Activity User E-Sign Co-Sign Detail Recorded Client Recorded Date Recorded By Document 05/25/19 08:12 [id number] [email or web address] 05/25/19 08:13 [id number] 05/25/19 08:12 PMRU Outcome: Safety Current Safety Outcome/Goals Remain Free of Injury or Harm Cooperates with Safety Measures for Least Restrictive Environment Prevent Falls/ Injury Progression Toward Outcome/Goals Progressing Skin- Improve/Maintain Start: 05/23/19 02:17 Freq: DAILY@0700,1900 Status: Active Target: 05/29/19 Protocol: Activity Type Activity Date Activity User E-Sign Co-Sign Detail Recorded Client Recorded Date Recorded By Document 05/25/19 08:12 [id number] [email or web address] 05/25/19 08:13 [id number] 05/25/19 08:12 PMRU Outcome: Skin Skin Risk Level Mild Risk Skin Orders Dressing Change Teach Patient Turn/Position q2hr While in Bed Skin Orders Comment stump drsg last changed 05/24 Current Skin Outcome/Goals Maintain/ Improve Skin Integrity Free from Pressure Injury Surgical Incisions Healing Progression Toward Outcome/Goals Progressing - Interdisciplinary Staff Present OT Staff Present: Shayy Colin PT Staff Present: Tabatha Rudd Medicine Note: Length of Stay: 3 days Anticipated Discharge Destination: home Tentative Discharge Date: April 28, 2019 Discharged to: Home
--- NOTE | 2019-05-25 17:41 | PN ---
Progress Note Date of Service: 05/25/19 Note: WILBERT PONCE was visited. Therapy notes read and reviewed. Patient was discussed in interdisciplinary plan of care rounds. He offers no complaints. His blood sugars are under better control. Current Medications: Active Medications Generic Name Dose Route Start Last Admin Trade Name Freq PRN Reason Stop Dose Admin Acetaminophen 650 mg 05/22/19 15:49 05/23/19 20:52 Tylenol Tab* PO 650 mg Q6H PRN Administration MILD PAIN or TEMP > 100.4 Amlodipine Besylate 10 mg 05/23/19 09:00 05/25/19 08:02 Norvasc Tab* PO 10 mg DAILY MICHAEL Administration Carisoprodol 350 mg 05/22/19 15:57 05/24/19 09:37 Soma Tab* PO 350 mg TID PRN Administration SPASMS Docusate Sodium 100 mg 05/22/19 21:00 05/25/19 08:03 Colace Cap* PO Not Given BID MICHAEL Heparin Sodium (Porcine) 5,000 units 05/22/19 21:00 05/25/19 08:03 Heparin Vial(*) SUBCUT 5,000 units Q12HR MICHAEL Administration Linezolid 600 mg in 300 mls @ 300 mls/hr 05/23/19 00:01 05/25/19 12:11 Zyvox 600 Mg Ivpremix(*) IVPB 300 mls/hr Q12H MICHAEL Administration Insulin Human NPH 18 units 05/24/19 21:00 05/25/19 08:53 Insulin Nph(*) SUBCUT 18 units BID MICHAEL Administration Insulin Human Regular 6 units 05/25/19 07:30 05/25/19 17:26 Insulin Regular(*) SUBCUT 6 units AC MICHAEL Administration Magnesium Hydroxide 30 ml 05/22/19 15:49 Milk Of Magnesia Liq* PO Q6H PRN CONSTIPATION Metoprolol Tartrate 12.5 mg 05/22/19 21:00 05/25/19 08:01 Lopressor Tab* PO 12.5 mg Q12HR MICHAEL Administration Oxycodone HCl 10 mg 05/22/19 16:01 05/25/19 17:27 Roxycodone Tab* PO 10 mg Q4H PRN Administration PAIN - SEVERE Senna 2 tab 05/22/19 21:00 05/24/19 21:09 Senokot 8.6 Mg Tab* PO 2 tab BEDTIME MICHAEL Administration Vital Signs: Vital Signs Temp Pulse Resp BP Pulse Ox 97.9 F 94 16 118/67 94 05/25/19 15:45 05/25/19 15:45 05/25/19 17:27 05/25/19 15:45 05/25/19 15:45 Lab Results: Laboratory Results - last 24 hr 05/24/19 05/24/19 05/24/19 07:46 09:33 11:47 WBC RBC Hgb Hct MCV MCH MCHC RDW Plt Count MPV Neut % (Auto) Lymph % (Auto) [place] % (Auto) Eos % (Auto) Baso % (Auto) Absolute Neuts (auto) Absolute Lymphs (auto) Absolute Monos (auto) Absolute Eos (auto) Absolute Basos (auto) Absolute Nucleated RBC Nucleated RBC % Sodium Potassium Chloride Carbon Dioxide Anion Gap BUN Creatinine Est GFR ( Amer) Est GFR (Non-Af Amer) BUN/Creatinine Ratio Glucose POC Glucose (mg/dL) 108 H 112 H 92 Calcium Total Bilirubin AST ALT Alkaline Phosphatase Total Protein Albumin Globulin Albumin/Globulin Ratio 05/24/19 05/24/19 05/25/19 16:17 20:26 04:48 WBC 9.7 RBC 3.56 L Hgb 9.9 L Hct 29 L MCV 81 MCH 28 MCHC 35 RDW 13 Plt Count 330 MPV 5.8 L Neut % (Auto) 64.9 Lymph % (Auto) 18.8 [place] % (Auto) 11.4 Eos % (Auto) 3.9 Baso % (Auto) 1.0 Absolute Neuts (auto) 6.3 Absolute Lymphs (auto) 1.8 Absolute Monos (auto) 1.1 H Absolute Eos (auto) 0.4 Absolute Basos (auto) 0.1 Absolute Nucleated RBC 0.0 Nucleated RBC % 0.0 Sodium Potassium Chloride Carbon Dioxide Anion Gap BUN Creatinine Est GFR ( Amer) Est GFR (Non-Af Amer) BUN/Creatinine Ratio Glucose POC Glucose (mg/dL) 131 H 73 Calcium Total Bilirubin AST ALT Alkaline Phosphatase Total Protein Albumin Globulin Albumin/Globulin Ratio 05/25/19 05/25/19 05/25/19 04:48 07:19 09:14 WBC RBC Hgb Hct MCV MCH MCHC RDW Plt Count MPV Neut % (Auto) Lymph % (Auto) [place] % (Auto) Eos % (Auto) Baso % (Auto) Absolute Neuts (auto) Absolute Lymphs (auto) Absolute Monos (auto) Absolute Eos (auto) Absolute Basos (auto) Absolute Nucleated RBC Nucleated RBC % Sodium 135 Potassium 4.7 Chloride 100 L Carbon Dioxide 30 Anion Gap 5 BUN 18 Creatinine 2.44 H Est GFR ( Amer) 37.2 Est GFR (Non-Af Amer) 30.7 BUN/Creatinine Ratio 7.4 L Glucose 98 POC Glucose (mg/dL) 85 81 Calcium 8.2 L Total Bilirubin 0.40 AST 18 ALT 11 Alkaline Phosphatase 72 Total Protein 6.2 L Albumin 2.5 L Globulin 3.7 Albumin/Globulin Ratio 0.7 L 05/25/19 05/25/19 12:12 16:35 WBC RBC Hgb Hct MCV MCH MCHC RDW Plt Count MPV Neut % (Auto) Lymph % (Auto) [place] % (Auto) Eos % (Auto) Baso % (Auto) Absolute Neuts (auto) Absolute Lymphs (auto) Absolute Monos (auto) Absolute Eos (auto) Absolute Basos (auto) Absolute Nucleated RBC Nucleated RBC % Sodium Potassium Chloride Carbon Dioxide Anion Gap BUN Creatinine Est GFR ( Amer) Est GFR (Non-Af Amer) BUN/Creatinine Ratio Glucose POC Glucose (mg/dL) 90 92 Calcium Total Bilirubin AST ALT Alkaline Phosphatase Total Protein Albumin Globulin Albumin/Globulin Ratio Exam: HEENT: EOMI, NC/AT LUNGS: Clear bilaterally HEART: Regular rhythm ABDOMEN: Soft, +BS EXTREMITIES: Left stump looks bulbous NEUROLOGIC: A&O. Decreased sensation Assessment/Plan: 1. Left BKA: PT/OT. 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 Diabetes: NPH now 18u BID; decreased regular to 6 units with meals 3. HTN: Lopressor/Norvasc 4. DVT Prophylaxis: Heparin 5. Osteomyelitis with MRSA: Zyvox 05/25/19 17:42
[2019-05-25] MEDS: Senna TAB 8.6 mg* TAB PO SCH (21:21)
[2019-05-26] MEDS: Linezolid 600 MG IVPREMIX(*) 600 MG/300 ML BAG IVPB SCH ×3 (00:14→23:45)
[2019-05-26] MEDS: Carisoprodol TAB* 350 MG PO PRN ×2 (08:14→14:24)
[2019-05-26] MEDS: oxyCODONE TAB* 5 MG TAB PO PRN ×2 (08:15→12:16)
[2019-05-26] MEDS: Docusate CAP* 100 MG PO SCH ×2 (08:15→21:23)
[2019-05-26] MEDS: Metoprolol Tartrate TAB* 25 MG PO SCH ×2 (08:15→21:23)
[2019-05-26] MEDS: amLODIPine TAB* 5 MG PO SCH (08:16)
[2019-05-26] MEDS: Insulin REGULAR(*) 1 UNITS UNIT SUBCUT SCH ×4 (08:16→17:19)
[2019-05-26] MEDS: Heparin VIAL(*) 5000 UNITS/ML VIAL (FIVE THOUSAND) SUBCUT SCH ×2 (08:23→21:35)
[2019-05-26] MEDS: Insulin NPH(*) 1 UNITS UNIT SUBCUT SCH ×2 (08:23→21:34)
--- NOTE | 2019-05-26 12:41 | PMRUTEAM ---
PMRU: Team Meeting Current Status: Physical Therapy: Current Status Current Rolling Status Independent Current Supine <-> Sit Status Independent Current Sit <-> Stand Status Supervision/Touching Current Bed <-> Chair Status Supervision/Touching Transfer/Bed Mobility Rolling Walker Recommended Devices Current Picking Up Object Not attempted Status Current Car Transfer Status Not attempted Current Ambulation Assistance Partial/Moderate Status Ambulation Assistive Device Rolling Walker Ambulation Conditions Two or More Turns Current Ambulation Distance 30 Manual Wheelchair Control/ Bilateral UE's Technique Current Wheelchair Propulsion Setup or Clean-up Assist Ability Status Wheelchair Distance (ft) 175 Current Stair Climbing Status Not attempted Stair Climbing Assistive None Devices Current Curb Assistance Status Not attempted Occupational Therapy: Current Status Current Upper Body Dressing Setup or Clean-up Assist Status Current Lower Body Dressing Supervision/Touching Status Current Footwear Status Setup or Clean-up Assist Current Bathing Status Supervision/Touching Current Grooming Status Setup or Clean-up Assist Current Toileting Status Supervision/Touching Current Toilet Transfer Status Supervision/Touching Current Eating Status Independent Nursing: Current Status Skin Deviations [left bka- Incision stump] Skin Deviations [Left Leg] Incision Skin Deviation Description [ drsg left bka-stump] Skin Deviation Description [ below the knee amputation Left Leg] not visualized, drsg cdi Bladder Current Status voiding without difficulty Bowel Current Status last bm 05/25/19 Nutrition Current Status appetite poor Medication Current Status needs reinforcement Rec Therapy: Current Status Summary of Assessment and Recreation Therapy assessment complete and pt. is Clinical Impression aware of services. Pt. has been open to leisure visits. Provided pt. with word search puzzles to engage in as he requested. Treatment Goals Pt. will engage in leisure activities while on the unit. Treatment Plan Provide recreation therapy services and encourage involvement. Nutrition: Current Status Monitoring pt adm to [facility] 05/22; s/p L transtibial amputation (05/18). Pt known from adm to [facility]. He is on a consistent carb diet; generally eating well, although not much appetite this a.m. for breakfast . Pain meds cont; last BM 05/25. Insulin dose has had to be reduced d/t periodic hypoglycemia at various times of the day (ie: not just in a.m.). FS yesterday in 80s-90s. Recent A1c 12%, indicating poorly-controlled DM, although it was starting to show a downtrend from pervious results . Full nutrition re-assessment planned 05/29. Goals: Physical Therapy: Goals Goals to Be Accomplished in ( 7-10 Days) Goal: Rolling Assistance Independent Goal Supine <-> Sit Status Independent Goal Sit <-> Stand Status Independent Goal Bed <-> Chair Status Independent Transfer/Bed Mobility None,Rolling Walker Recommended Devices Goal: Picking Up Object Independent Goal: Car Transfer Status Setup or Clean-up Assist Ambulation Assistive Devices Rolling Walker Ambulation Distance (ft) 50 Goal: Wheelchair Propulsion Independent Ability Wheelchair Distance (ft) 150 Goal: Stairs Assistance Not Applicable Goal: Curb Assistance Not Applicable Goal: Home Exercise Program Independent Assistance Occupational Therapy: Goals Goals to be Completed in (Days 3 ) Goal Upper Body Dressing Independent Routine Goal Lower Body Dressing Independent Routine Goal Footwear Status Independent Goal Bathing Routine (OT) Independent Goal Grooming Routine Independent Goal Toilet Hygiene and Independent Clothing Management Routine Goal Toilet Transfer Routine Independent Goal Functional Transfers for Independent ADL Goal Feeding Routine Independent Goal Light Housekeeping Tasks Independent Nutrition: Goals Intervention Goals 1. adequate intake to support hydration and lean body mass without add'l wt gain 2. glycemic control within inpatient parameters; no s/sx hypo-hyperglycemia 3. achieve and maintain serum electrolytes WNL 4. regulation of bowel pattern; no c/o constipation (or diarrhea) Nursing: Goals Bladder Goal independent Bowel Goal independent Nutrition Goal 100% of all meals Medication Goal supervision Care Plan: Care Plan Coping/Psych-Improve/Maintain Start: 05/23/19 02:17 Freq: DAILY@0700,1900 Status: Active Target: 05/29/19 Protocol: Activity Type Activity Date Activity User E-Sign Co-Sign Detail Recorded Client Recorded Date Recorded By Document 05/26/19 10:19 [id number] [email or web address] 05/26/19 10:39 [id number] 05/26/19 10:19 PMRU Outcome: Coping/Psychosocial Current Coping Outcome/Goals Verbalization of Acceptance of Rehab Admit Verbalization of Sense of Control Over Health Status Willingness to Participate in Treatment Plan and Basic Needs Progression Toward Outcome/Goals Progressing Current Psychosocial Outcome/Goals Maintain/ Improve Emotional Health Demonstrates Knowledge of Healthy Coping Mechanisms Available Cooperate/ Participate in Plan Progression Toward Outcome/Goals Progressing DVT Prophylaxis- Improve/Maintain Start: 05/23/19 02:17 Freq: DAILY@0700,1900 Status: Active Target: 05/29/19 Protocol: Activity Type Activity Date Activity User E-Sign Co-Sign Detail Recorded Client Recorded Date Recorded By Document 05/26/19 10:19 [id number] [email or web address] 05/26/19 10:39 [id number] 05/26/19 10:19 PMRU Outcome: DVT Prophylaxis Current DVT Outcome/Goals Remains Free of DVT Complies with DVT Prophylaxis /Treatment Demonstrates Knowledge of DVT Prevention/ Treatment Progression Toward Outcome/Goals Progressing Discharge Planning - Improve/Maintain Start: 05/23/19 02:17 Freq: DAILY@ Status: Active Target: 05/29/19 Protocol: Activity Type Activity Date Activity User E-Sign Co-Sign Detail Recorded Client Recorded Date Recorded By Document 05/26/19 10:19 [id number] 05/26/19 10:39 [id number] 05/26/19 10:19 PMRU Outcome: Discharge Planning Update Patient Family Yes Current Discharge Planning Outcome/Goals Demonstrates Understanding of Discharge Plan Progression Toward Outcome/Goals Progressing Education-Improve/Maintain Start: 05/23/19 02:17 Freq: DAILY@ Status: Active Target: 05/29/19 Protocol: Activity Type Activity Date Activity User E-Sign Co-Sign Detail Recorded Client Recorded Date Recorded By Document 05/26/19 10:19 [id number] 05/26/19 10:39 [id number] 05/26/19 10:19 PMRU Outcome: Education Current Education Outcome/Goals Demonstrate/ Verbalize Understanding of Written Discharge Instructions Demonstrates Skills Encourage Questions Progression Toward Outcome/Goals Progressing /GI-Improve/Maintain Start: 05/23/19 02:17 Freq: DAILY@ Status: Active Target: 05/29/19 Protocol: Activity Type Activity Date Activity User E-Sign Co-Sign Detail Recorded Client Recorded Date Recorded By Document 05/26/19 10:19 [id number] 05/26/19 10:39 [id number] 05/26/19 10:19 PMRU Outcome: Genitourinary/ Gastrointestinal Current Gastrointestinal Outcome/Goals Maintain/ Achieve Bowel Regularity in Accordance with Pt's Baseline Remain Free of Emesis Prevent Constipation Laxatives as Ordered Progression Toward Outcome/Goals Progressing Current Genitourinary Outcome/Goals Maintain/ Achieve Urinary Continence Maintain/ Achieve Adequate Urinary Output Remain Free of Hospital- Acquired UTI Progression Toward Outcome/Goals Progressing Metabolic Status- Improve/Maintain Start: 05/23/19 02:17 Freq: DAILY@699,0 Status: Active Target: 05/29/19 Protocol: Activity Type Activity Date Activity User E-Sign Co-Sign Detail Recorded Client Recorded Date Recorded By Document 05/26/19 10:19 [id number] 05/26/19 10:39 [id number] 05/26/19 10:19 PMRU Outcome: Metabolic Status Have Fingersticks Been Ordered Yes Fingerstick Order Frequency AC & HS Current Metabolic Status Outcome/Goals Maintain/ Improve Metabolic Status Demonstrate Knowledge of Prevention/ Treatment of Metabolic Imbalances Progression Toward Outcome/Goals Progressing Mobility- Improve/Maintain Start: 05/22/19 16:30 Freq: DAILY@699,1899 Status: Active Target: 05/23/19 Protocol: Activity Type Activity Date Activity User E-Sign Co-Sign Detail Recorded Client Recorded Date Recorded By Document 05/22/19 16:30 [id number] 05/22/19 16:31 [id number] 05/22/19 16:30 PMRU Outcome: Mobility Physical Therapy Evaluation and Yes Treatment Activity OOB with Assistance Yes WBAT No NWB Yes TTWB No Device Yes Assistance Yes Patient to be seen 5x/wk for 60-120 min/ Therex day for: Mobility Training Gait Training W/C Mobility Balance Current Mobility Outcome/Goals Maintain/ Achieve Baseline Mobility Status Progression Toward Outcome/Goals Goal Initiation Bed Mobility Yes: independent Transfers Yes: independent with RW Gait x ft Yes: 50' independent with RW W/C Mobility x ft Yes: 150' independent Up/Down Stairs No With HEP Yes: independent Neurological- Improve/Maintain Start: 05/23/19 02:17 Freq: DAILY@699,1900 Status: Active Target: 05/29/19 Protocol: Activity Type Activity Date Activity User E-Sign Co-Sign Detail Recorded Client Recorded Date Recorded By Document 05/26/19 10:19 [id number] [email or web address] 05/26/19 10:39 [id number] 05/26/19 10:19 PMRU Outcome: Neurological Current Neurological Outcome/Goals Maintain/ Achieve Baseline Neurological Status Prevent Avoidable Neurological Decline Maintain/ Improve Strength/ROM Progression Toward Outcome/Goals Progressing Pain/Comfort- Improve/Maintain Start: 05/23/19 02:17 Freq: DAILY@07,1900 Status: Active Target: 05/29/19 Protocol: Activity Type Activity Date Activity User E-Sign Co-Sign Detail Recorded Client Recorded Date Recorded By Document 05/26/19 10:19 [id number] 05/26/19 10:39 [id number] 05/26/19 10:19 PMRU Outcome: Pain/Comfort Current Pain/Comfort Outcome/Goals Demonstrates Knowledge and Use of Available Comfort Measures Achieves Acceptable Comfort/Pain Level as Determined by Patient/Condit Maintain Comfort Level Allowing Patient to Fully Participate in Rehab Progression Toward Outcome/Goals Progressing Safety- Improve/Maintain Start: 05/22/19 16:00 Freq: DAILY@699,1900 Status: Active Target: 05/29/19 Protocol: Activity Type Activity Date Activity User E-Sign Co-Sign Detail Recorded Client Recorded Date Recorded By Document 05/26/19 10:19 [id number] 05/26/19 10:39 [id number] 05/26/19 10:19 PMRU Outcome: Safety Current Safety Outcome/Goals Remain Free of Injury or Harm Cooperates with Safety Measures for Least Restrictive Environment Prevent Falls/ Injury Progression Toward Outcome/Goals Progressing Skin- Improve/Maintain Start: 05/23/19 02:17 Freq: DAILY@699,1900 Status: Active Target: 05/29/19 Protocol: Activity Type Activity Date Activity User E-Sign Co-Sign Detail Recorded Client Recorded Date Recorded By Document 05/26/19 10:19 [id number] 05/26/19 10:39 [id number] 05/26/19 10:19 PMRU Outcome: Skin Skin Risk Level Mild Risk Skin Orders Dressing Change Teach Patient Turn/Position q2hr While in Bed Skin Orders Comment Dressing clean dry and intact Current Skin Outcome/Goals Maintain/ Improve Skin Integrity Free from Pressure Injury Surgical Incisions Healing Progression Toward Outcome/Goals Progressing - Interdisciplinary Staff Present [place] Worker/Social Work Staff Present: Marisol Henry LMSW Nursing Staff Present: Madison King, RN OT Staff Present: Shayy Colin PT Staff Present: Tabatha Rudd Rec Therapy Staff Present: Madeline Bojorquez SLIVER LAP MACHINE TENDER Staff Present: Gregg Wells Medicine Note: Length of Stay: 2 days Anticipated Discharge Destination: home Tentative Discharge Date: 05/28/19 Discharged to: Home
[2019-05-26] MEDS ORDERED: Insulin REGULAR(*) 1 UNITS UNIT ONE (13:05)
[2019-05-26] MEDS ORDERED: oxyCODONE TAB* 5 MG TAB PO PRN (17:02)
--- NOTE | 2019-05-26 17:06 | PN ---
Progress Note Date of Service: 05/26/19 Note: WILBERT PONCE was visited. Therapy notes read and reviewed. The patient was discussed in interdisciplinary team rounds. I discussed his case with Dr. Lux. Will lower his NPH to 20 units in am and 10 units in PM and eliminate regular insulin. Dr. Lux will see the patient in follow up at [facility] in [place] on a Saturday. The patient consents for a PICC line. Will order a stump medical billing supervisor Current Medications: Active Medications Generic Name Dose Route Start Last Admin Trade Name Freq PRN Reason Stop Dose Admin Acetaminophen 650 mg 05/22/19 15:49 05/23/19 20:52 Tylenol Tab* PO 650 mg Q6H PRN Administration MILD PAIN or TEMP > 100.4 Amlodipine Besylate 10 mg 05/23/19 09:00 05/26/19 08:16 Norvasc Tab* PO 10 mg DAILY MICHAEL Administration Carisoprodol 350 mg 05/22/19 15:57 05/26/19 14:24 Soma Tab* PO 350 mg TID PRN Administration SPASMS Docusate Sodium 100 mg 05/22/19 21:00 05/26/19 08:15 Colace Cap* PO 100 mg BID MICHAEL Administration Heparin Sodium (Porcine) 5,000 units 05/22/19 21:00 05/26/19 08:23 Heparin Vial(*) SUBCUT 5,000 units Q12HR MICHAEL Administration Linezolid 600 mg in 300 mls @ 300 mls/hr 05/23/19 00:01 05/26/19 12:17 Zyvox 600 Mg Ivpremix(*) IVPB 300 mls/hr Q12H MICHAEL Administration Insulin Human NPH 10 units 05/26/19 21:00 Insulin Nph(*) SUBCUT BEDTIME MICHAEL Insulin Human NPH 20 units 05/27/19 08:00 Insulin Nph(*) SUBCUT 0800 MICHAEL Magnesium Hydroxide 30 ml 05/22/19 15:49 Milk Of Magnesia Liq* PO Q6H PRN CONSTIPATION Metoprolol Tartrate 12.5 mg 05/22/19 21:00 05/26/19 08:15 Lopressor Tab* PO 12.5 mg Q12HR MICHAEL Administration Oxycodone HCl 10 mg 05/22/19 16:01 05/26/19 12:16 Roxycodone Tab* PO 10 mg Q4H PRN Administration PAIN - SEVERE Oxycodone HCl 5 mg 05/26/19 17:02 Roxycodone Tab* PO Q4H PRN PAIN - MODERATE Senna 2 tab 05/22/19 21:00 05/25/19 21:21 Senokot 8.6 Mg Tab* PO 2 tab BEDTIME MICHAEL Administration Vital Signs: Vital Signs Temp Pulse Resp BP Pulse Ox 98.0 F 88 16 133/86 98 05/26/19 16:30 05/26/19 16:30 05/26/19 16:56 05/26/19 16:30 05/26/19 16:37 Lab Results: Laboratory Results - last 24 hr 05/25/19 05/25/19 05/25/19 09:14 12:12 16:35 POC Glucose (mg/dL) 81 90 92 05/25/19 21:09 POC Glucose (mg/dL) 88 Exam: HEENT: EOMI, NC/AT LUNGS: Clear bilaterally HEART: Regular rhythm ABDOMEN: Soft, +BS EXTREMITIES: Left stump looks bulbous NEUROLOGIC: A&O. Decreased sensation Assessment/Plan: 1. Left BKA: PT/OT. Will need stump medical billing supervisor 2. Diabetes: NPH now 20u in am and 10 units in PM, stopped routine regular insulin 3. HTN: Lopressor/Norvasc 4. DVT Prophylaxis: Heparin 5. Osteomyelitis with MRSA: Zyvox 05/26/19 17:07
[2019-05-26] MEDS: Senna TAB 8.6 mg* TAB PO SCH (21:23)
[2019-05-27] MEDS: oxyCODONE TAB* 5 MG TAB PO PRN ×3 (00:45→23:37)
[2019-05-27 08:45] LABS: C Reactive Protein 60.57 mg/L (<8.01)
[2019-05-27] MEDS: Insulin NPH(*) 1 UNITS UNIT SUBCUT SCH ×2 (08:48→21:32)
[2019-05-27] MEDS: Heparin VIAL(*) 5000 UNITS/ML VIAL (FIVE THOUSAND) SUBCUT SCH ×2 (08:48→21:18)
[2019-05-27] MEDS: Carisoprodol TAB* 350 MG PO PRN ×3 (08:49→20:31)
[2019-05-27] MEDS: amLODIPine TAB* 5 MG PO SCH (08:49)
[2019-05-27] MEDS: Docusate CAP* 100 MG PO SCH ×2 (08:49→20:59)
[2019-05-27] MEDS: Metoprolol Tartrate TAB* 25 MG PO SCH ×2 (08:50→20:31)
--- NOTE | 2019-05-27 11:15 | PN ---
Progress Note - Progress Note Date of Service: 05/27/19 SOAP: Subjective: CC: Left foot infection HPI: Mr. Car is a 34 yo male with PMH significant for DM2, obesity, HTN, HLD , anxiety, and charcot arthropathy. Denies fever, chills, nausea, vomiting, or diarrhea. Has pain in left LE stump after working with PT, but pain is mostly controlled. Objective: Vital Signs - 8 hr 05/27/19 05/27/19 05/27/19 06:00 08:00 08:49 Temperature 98.3 F Pulse Rate 83 Respiratory 16 17 17 Rate Blood Pressure 136/79 (mmHg) O2 Sat by Pulse 94 94 Oximetry Physical Exam: General: NAD, sitting up in a chair. Neurological: Alert and Oriented x3 HEENT: Moist MM, no thrush Cardiovascular: Heart rate regular Respiratory: Lung sounds clear Abdominal: Bowel sounds present; ABD soft, non tender and large MSK: Full ROM of the left knee Skin: Incision to the left LE stump well approximated with sutures intact. There is mild dark erythema to the anterior aspect of the stump above the incision line. There is no drainage. Slight warmth to stump Laboratory Last Values WBC 9.7 10^3/uL (3.5-10.8) 05/25/19 04:48 RBC 3.56 10^6 /uL (4.18-5.48) L 05/25/19 04:48 Hgb 9.9 g/dL (14.0-18.0) L 05/25/19 04:48 Hct 29 % (42-52) L 05/25/19 04:48 MCV 81 fL (80-94) 05/25/19 04:48 MCH 28 pg (27-31) 05/25/19 04:48 MCHC 35 g/dL (31-36) 05/25/19 04:48 RDW 13 % (10-15) 05/25/19 04:48 Plt Count 330 10^3/uL (150-450) 05/25/19 04:48 MPV 5.8 fL (7.4-10.4) L 05/25/19 04:48 Neut % (Auto) 64.9 % 05/25/19 04:48 Lymph % (Auto) 18.8 % 05/25/19 04:48 [place] % (Auto) 11.4 % 05/25/19 04:48 Eos % (Auto) 3.9 % 05/25/19 04:48 Baso % (Auto) 1.0 % 05/25/19 04:48 Absolute Neuts (auto) 6.3 10^3/ul (1.5-7.7) 05/25/19 04:48 Absolute Lymphs (auto) 1.8 10^3/ul (1.0-4.8) 05/25/19 04:48 Absolute Monos (auto) 1.1 10^3/ul (0-0.8) H 05/25/19 04:48 Absolute Eos (auto) 0.4 10^3/ul (0-0.6) 05/25/19 04:48 Absolute Basos (auto) 0.1 10^3/ul (0-0.2) 05/25/19 04:48 Absolute Nucleated RBC 0.0 10^3/ul 05/25/19 04:48 Nucleated RBC % 0.0 05/25/19 04:48 Sodium 135 mmol/L (135-145) 05/25/19 04:48 Potassium 4.7 mmol/L (3.5-5.0) 05/25/19 04:48 Chloride 100 mmol/L (101-111) L 05/25/19 04:48 Carbon Dioxide 30 mmol/L (22-32) 05/25/19 04:48 Anion Gap 5 mmol/L (2-11) 05/25/19 04:48 BUN 18 mg/dL (6-24) 05/25/19 04:48 Creatinine 2.44 mg/dL (0.67-1.17) H 05/25/19 04:48 Est GFR ( Amer) 37.2 (>60) 05/25/19 04:48 Est GFR (Non-Af Amer) 30.7 (>60) 05/25/19 04:48 BUN/Creatinine Ratio 7.4 (8-20) L 05/25/19 04:48 Glucose 98 mg/dL (70-100) 05/25/19 04:48 POC Glucose (mg/dL) 198 mg/dL (70-100) H 05/27/19 11:54 Calcium 8.2 mg/dL (8.6-10.3) L 05/25/19 04:48 Total Bilirubin 0.40 mg/dL (0.2-1.0) 05/25/19 04:48 AST 18 U/L (13-39) 05/25/19 04:48 ALT 11 U/L (7-52) 05/25/19 04:48 Alkaline Phosphatase 72 U/L (34-104) 05/25/19 04:48 C-Reactive Protein 60.57 mg/L (<8.01) H 05/25/19 04:48 Total Protein 6.2 g/dL (6.4-8.9) L 05/25/19 04:48 Albumin 2.5 g/dL (3.2-5.2) L 05/25/19 04:48 Globulin 3.7 g/dL (2-4) 05/25/19 04:48 Albumin/Globulin Ratio 0.7 (1-3) L 05/25/19 04:48 Microbiology 05/14/19 16:08 Ankle Left Skin and Soft Tissue MRSA/MSSA (PCR - Final 05/14/19 16:08 Ankle Left Wound Culture - Final Mrsa Positive S.aureus Positive MRSA 05/13/19 14:18 Blood Venous Aerobic Blood Culture - Final 05/13/19 14:18 Blood Venous Blood MRSA/MSSA (PCR) - Final MRSA Mrsa Positive S.aureus Positive No Growth Day 5 05/13/19 09:33 Misc Fluid (See Comment) - Aspirate Gram Stain - Final 05/13/19 09:33 Misc Fluid (See Comment) - Aspirate Skin and Soft Tissue MRSA /MSSA (PCR - Final MRSA Mrsa Positive S.aureus Positive Assessment: 1. 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 Noted to have bacteremia, 1 of 4 blood cultures positive for MRSA tht cleared quickly on admission to hospital. Wound culture with MRSA. Initially S/P debridement of the left hindfoot with talus and navicular excision. S/P left BKA , POD #9. Pathology with acute and chronic osteomyelitis involving tibial resection margin. Afebrile and no leukocytosis. 2. Acute kidney injury. Possibly due to vancomycin or ATN. Resolving. 3. DM2. 4. Obesity. BMI ~ 45. Plan: Continue linezolid 600 mg IV Q12hrs, day -56 (should hold SSRI at home while on linezolid). Will need to have weekly labs while on ABX: CBC, CMP, and CRP. PICC line being placed. Followup with ID outpatient in 2 weeks. 25 minutes floor time: > 50% spent discussing surgical pathology results, home IV infusions, PICC line placement, weekly labs, office followup, and when to call the office. He will call the office for fever, rash, or diarrhea.
[2019-05-27] MEDS: Acetaminophen TAB* 325 MG PO PRN (11:48)
--- NOTE | 2019-05-27 17:53 | PN ---
Progress Note Date of Service: 05/27/19 Note: WILBERT PONCE was visited. Therapy notes read and reviewed. His blood sugars are a little high on NPH and this may need adjustments in the future. 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 and is ready for discharge Current Medications: Active Medications Generic Name Dose Route Start Last Admin Trade Name Freq PRN Reason Stop Dose Admin Acetaminophen 650 mg 05/22/19 15:49 05/27/19 11:48 Tylenol Tab* PO 650 mg Q6H PRN Administration MILD PAIN or TEMP > 100.4 Amlodipine Besylate 10 mg 05/23/19 09:00 05/27/19 08:49 Norvasc Tab* PO 10 mg DAILY MICHAEL Administration Carisoprodol 350 mg 05/22/19 15:57 05/27/19 13:27 Soma Tab* PO 350 mg TID PRN Administration SPASMS Docusate Sodium 100 mg 05/22/19 21:00 05/27/19 08:49 Colace Cap* PO 100 mg BID MICHAEL Administration Heparin Sodium (Porcine) 5,000 units 05/22/19 21:00 05/27/19 08:48 Heparin Vial(*) SUBCUT 5,000 units Q12HR MICHAEL Administration Heparin Sodium (Porcine) 1 - 3 ml 05/27/19 18:00 Heparin Flush Picc/Ml/Cvc(*) FLUSH 0600,1800 [facility] Protocol Linezolid 600 mg in 300 mls @ 300 mls/hr 05/23/19 00:01 05/26/19 23:45 Zyvox 600 Mg Ivpremix(*) IVPB 300 mls/hr Q12H MICHAEL Administration Insulin Human NPH 10 units 05/26/19 21:00 05/26/19 21:34 Insulin Nph(*) SUBCUT 10 units BEDTIME MICHAEL Administration Insulin Human NPH 20 units 05/27/19 08:00 05/27/19 08:48 Insulin Nph(*) SUBCUT 20 units 0800 MICHAEL Administration Magnesium Hydroxide 30 ml 05/22/19 15:49 Milk Of Magnesia Liq* PO Q6H PRN CONSTIPATION Metoprolol Tartrate 12.5 mg 05/22/19 21:00 05/27/19 08:50 Lopressor Tab* PO 12.5 mg Q12HR MICHAEL Administration Oxycodone HCl 10 mg 05/22/19 16:01 05/27/19 08:49 Roxycodone Tab* PO 10 mg Q4H PRN Administration PAIN - SEVERE Oxycodone HCl 5 mg 05/26/19 17:02 Roxycodone Tab* PO Q4H PRN PAIN - MODERATE Senna 2 tab 05/22/19 21:00 05/26/19 21:23 Senokot 8.6 Mg Tab* PO 2 tab BEDTIME MICHAEL Administration Vital Signs: Vital Signs Temp Pulse Resp BP Pulse Ox 98.4 F 91 18 125/79 98 05/27/19 14:13 05/27/19 14:13 05/27/19 14:13 05/27/19 14:13 05/27/19 14:13 Lab Results: Laboratory Results - last 24 hr 05/25/19 05/26/19 05/26/19 04:48 07:27 10:28 Sodium 135 Potassium 4.7 Chloride 100 L Carbon Dioxide 30 Anion Gap 5 BUN 18 Creatinine 2.44 H Est GFR ( Amer) 37.2 Est GFR (Non-Af Amer) 30.7 BUN/Creatinine Ratio 7.4 L Glucose 98 POC Glucose (mg/dL) 117 H 56 L Calcium 8.2 L Total Bilirubin 0.40 AST 18 ALT 11 Alkaline Phosphatase 72 C-Reactive Protein 60.57 H Total Protein 6.2 L Albumin 2.5 L Globulin 3.7 Albumin/Globulin Ratio 0.7 L 05/26/19 05/26/19 05/26/19 10:50 11:09 11:33 Sodium Potassium Chloride Carbon Dioxide Anion Gap BUN Creatinine Est GFR ( Amer) Est GFR (Non-Af Amer) BUN/Creatinine Ratio Glucose POC Glucose (mg/dL) 91 69 L 142 H Calcium Total Bilirubin AST ALT Alkaline Phosphatase C-Reactive Protein Total Protein Albumin Globulin Albumin/Globulin Ratio 05/26/19 05/26/19 05/27/19 16:24 21:25 01:13 Sodium Potassium Chloride Carbon Dioxide Anion Gap BUN Creatinine Est GFR ( Amer) Est GFR (Non-Af Amer) BUN/Creatinine Ratio Glucose POC Glucose (mg/dL) 169 H 168 H 90 Calcium Total Bilirubin AST ALT Alkaline Phosphatase C-Reactive Protein Total Protein Albumin Globulin Albumin/Globulin Ratio 05/27/19 05/27/19 07:48 11:54 Sodium Potassium Chloride Carbon Dioxide Anion Gap BUN Creatinine Est GFR ( Amer) Est GFR (Non-Af Amer) BUN/Creatinine Ratio Glucose POC Glucose (mg/dL) 159 H 198 H Calcium Total Bilirubin AST ALT Alkaline Phosphatase C-Reactive Protein Total Protein Albumin Globulin Albumin/Globulin Ratio Exam: HEENT: EOMI, NC/AT LUNGS: Clear bilaterally HEART: Regular rhythm ABDOMEN: Soft, +BS EXTREMITIES: Left stump looks bulbous NEUROLOGIC: A&O. Decreased sensation Assessment/Plan: 1. Left BKA: PT/OT. 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 Diabetes: NPH now 20u in am and 10 units in PM, stopped routine regular insulin 3. HTN: Lopressor/Norvasc 4. DVT Prophylaxis: Heparin 5. Osteomyelitis with MRSA: Zyvox 05/27/19 17:53
[2019-05-27] MEDS: Senna TAB 8.6 mg* TAB PO SCH (21:19)
[2019-05-27] MEDS: Linezolid 600 MG IVPREMIX(*) 600 MG/300 ML BAG IVPB SCH ×2 (21:20→23:01)
[2019-05-28] MEDS: oxyCODONE TAB* 5 MG TAB PO PRN ×2 (05:40→11:13)
[2019-05-28 06:11] VITALS: BP 129/63
[2019-05-28] MEDS: amLODIPine TAB* 5 MG PO SCH (09:20)
[2019-05-28] MEDS: Heparin VIAL(*) 5000 UNITS/ML VIAL (FIVE THOUSAND) SUBCUT SCH (09:22)
[2019-05-28] MEDS: Docusate CAP* 100 MG PO SCH (09:22)
[2019-05-28] MEDS: Insulin NPH(*) 1 UNITS UNIT SUBCUT SCH (09:23)
[2019-05-28] MEDS: Metoprolol Tartrate TAB* 25 MG PO SCH (09:24)
[2019-05-28] MEDS: Carisoprodol TAB* 350 MG PO PRN (11:12)
[2019-05-28] MEDS: Linezolid 600 MG IVPREMIX(*) 600 MG/300 ML BAG IVPB SCH (12:10)
--- NOTE | 2019-05-28 23:11 | DS ---
CC: ELENA Calle* DISCHARGE SUMMARY: DATE OF ADMISSION: 05/22/19 DATE OF DISCHARGE: 05/28/19 PRIMARY CARE PROVIDER: ELENA Calle at [facility]. DISCHARGE DIAGNOSES: 1. Left gvgtq-tcx-mxol amputation. 2. Diabetes mellitus. 3. Diabetic peripheral neuropathy. 4. Hypertension. 5. Chronic kidney disease. HISTORY OF ILLNESS AND HOSPITAL COURSE: For complete history of the events leading up to his rehab stay, please see the history and physical dictated by me on 05/22/19. While on the rehab unit, the patient was having blood sugars well below his usual. His insulin was cut back several times during his rehab stay. He was maintained on IV Zosyn for his osteomyelitis in his left leg. There was a phone consultation done with Dr. Timothy Lux, who had seen him previously and it was decided to cut his NPH back to 20 units in the morning and 10 units in the evening. The patient was discharged home on this regimen. He will follow up with Dr. Lux as an outpatient. The patient was given a stump fixed assets accountant for his left stump prior to discharge. Otherwise, he had no difficulties. He was seen by physical and occupational therapy and made good gains with both disciplines. With physical therapy at the time of admission, the patient required mod assist for transfers. He could hop 8 feet with mod assist. With occupational therapy at the time of admission, the patient required setup for upper body dressing, mod assist for lower body dressing, toilet with setup, toilet transfers were supervision. By the time of discharge , the patient was independent in all activities. He was able to hop 50 feet. The patient was discharged home on 05/28/19. CONDITION AT DISCHARGE: Stable DISPOSITION: Home DISCHARGE DIET: Consistent carbohydrate. DISCHARGE MEDICATIONS: 1. NPH insulin 20 units in the morning, 10 units in the evening. 2. Amlodipine 10 mg daily. 3. Soma 350 mg 3 times a day with maximum daily dose of 3. 4. Oxycodone 5 to 10 mg every 4 hours as needed. 5. Lopressor 12.5 mg twice daily. 6. Omeprazole 40 mg daily. 7. Simvastatin 20 mg at bedtime. 8. He also is on intravenous Zyvox 600 mg every 12 hours. SERVICES AFTER DISCHARGE: Through [facility], he will have home infusion services with IV antibiotics and this will also happen with [facility]. Followup will be with Mohit Felton at [facility]. He will also follow up with Dr. Timothy Lux at [facility] in [place] and he needs to follow up with Dr. Henry Meier in about a week or 2 for suture removal. [id number]/CPS #: [id number] MIKKI
== END 2019-05-28 14:40 | disposition home health service (06) | DRG 860 ==
LOC: PMRU 15:26
PROVIDERS: ADMIT Physical Medicine & Rehabilitation; ATTEND Physical Medicine & Rehabilitation
PROC: F07Z5ZZ Bed Mobility Treatment (ICD-10-PCS; principal; 2019-05-22)
PROC: F07Z9ZZ Gait Training/Functional Ambulation Treatment (ICD-10-PCS; 2019-05-22)
PROC: F07Z8ZZ Transfer Training Treatment (ICD-10-PCS; 2019-05-22)
PROC: F07Z4ZZ Wheelchair Mobility Treatment (ICD-10-PCS; 2019-05-22)
PROC: F08Z0ZZ Bathing/Showering Techniques Treatment (ICD-10-PCS; 2019-05-22)
PROC: F08Z1ZZ Dressing Techniques Treatment (ICD-10-PCS; 2019-05-22)
PROC: F08Z3ZZ Feeding/Eating Treatment (ICD-10-PCS; 2019-05-22)
PROC: F08Z2ZZ Grooming/Personal Hygiene Treatment (ICD-10-PCS; 2019-05-22)
PROC: 05H533Z Insertion of Infusion Device into Right Subclavian Vein, Percutaneous Approach (ICD-10-PCS; 2019-05-27)
DX: Z47.81 Encounter for orthopedic aftercare following surgical amputation (principal); N17.0 Acute kidney failure with tubular necrosis; M86.672 Other chronic osteomyelitis, left ankle and foot; Z68.41 Body mass index [BMI] 40.0-44.9, adult; Z89.512 Acquired absence of left leg below knee; E11.42 Type 2 diabetes mellitus with diabetic polyneuropathy; E11.22 Type 2 diabetes mellitus with diabetic chronic kidney disease; E11.610 Type 2 diabetes mellitus with diabetic neuropathic arthropathy; B95.62 Methicillin resistant Staphylococcus aureus infection as the cause of diseases classified elsewhere; I12.9 Hypertensive chronic kidney disease with stage 1 through stage 4 chronic kidney disease, or unspecified chronic kidney disease; N14.1 Nephropathy induced by other drugs, medicaments and biological substances; T36.8X5A Adverse effect of other systemic antibiotics, initial encounter; N18.9 Chronic kidney disease, unspecified; E11.69 Type 2 diabetes mellitus with other specified complication; E66.9 Obesity, unspecified; F41.9 Anxiety disorder, unspecified; E78.5 Hyperlipidemia, unspecified; Y92.230 Patient room in hospital as the place of occurrence of the external cause; Z79.4 Long term (current) use of insulin; Z79.891 Long term (current) use of opiate analgesic; Z79.899 Other long term (current) drug therapy; Z88.2 Allergy status to sulfonamides; Z89.421 Acquired absence of other right toe(s)
CPT/HCPCS: 36415; 71045; 80053; 85025; 86140; A9270-GY; C1751; J1644; J2020

== ENCOUNTER 2019-09-06 14:13 | Emergency (ER) | payer OTHER ==
--- OUTSIDE RECORDS SUMMARY | 2019-09-06 14:21 | XMS REPORT | Continuity of Care Document ---
:1985 External Reference #:[id number] Author Name Henry Meier M.D. 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 07/15/2019 5-325mg Tablets every 12 hours as needed for pain Ondansetron HCL one by mouth 30tabs Reece Ramírez 06/15/2019 4mg every 8 hours M.D. Tablets as needed for nausea OT/PT Wheelchair icd-10 dx: Z89.512 Kaur William 06/12/2019 Mobility Evaluation z89.512 ALETHA Asher Fluoxetine HCL 1 po qd 30caps Unknown 20mg Capsules Lisinopril 1 po qd 90tabs Eladio Rose PA 20mg Tablets Simvastatin 1 po qd 90tabs Eladio Rose PA 20mg Tablets Omeprazole 1 po qd 90caps Eladio Rose PA 20mg Capsules DR Tylenol Extra 2 tabs by mouth Unknown Strength every 6 hours 500mg as needed Tablets Humalog Kwikpen 10 units in Unknown A.M. and 20 100Unit/ML Solution units at night Pen-Inject History Medications Ceftaroline 600MG IV twice daily Reece Cottrell 06/15/2019 - through Christiano Ramírez M.D. 07/01/2019 Gabapentin 1 by mouth every 60caps Luis Walsh MD 06/03/2019 - 300mg 12 hours 08/11/2019 Capsules Zyvox iv every 12 hours Unknown 05/18/2019 - 600mg/300ML x 42 days through 06/18/2019 Solution [facility] Immunizations Description No Information Available Vital Signs Date Vital Result Comment 08/19/2019 12:56pm Heart Rate 92 /min BP Systolic Sitting 140 mmHg BP Diastolic Sitting 98 mmHg Respiratory Rate 16 /min Pain Level 4 O2 % BldC Oximetry 98 % 08/12/2019 2:14pm Height 69 inches 5'9" Weight 280.00 lb per pt Heart Rate 92 /min BP Systolic Sitting 142 mmHg BP Diastolic Sitting 90 mmHg Respiratory Rate 14 /min Body Temperature 97.0 F BMI (Body Mass Index) 41.3 kg/m2 Results Test Acquired Date Facility Test Result H/L Range Note Body Fluid 05/13/2019 [facility] Body Fluid Synovial Fluid Cell Count [address] [place] [address] [phone] Body Fluid Appearance Cloudy Body Fluid Color Marisol Body Fluid Volume 4 mL Body Fluid WBC 701923 /mcL Normal 1 Body Fluid RBC 53817 /mcL Body Fluid Neutrophils 90 % Body Fluid Lymph 3 % Body Fluid Stoddard 7 % Body Fluid Total Cells Counted 100 Body Fluid Comment (SEE NOTE) 2 Fluid Reviewed By MD (SEE NOTE) 3 Laboratory test 05/13/2019 [facility] Gram Stain <pending> finding [address] [place] [address] [phone] Body Fluid Crystals <pending> Body Fluid C&S 05/13/2019 [facility] Body Fluid Cult SEE RESULT [address] [place] [address] [phone] Laboratory test 05/13/2019 [facility] Miscellaneous Test See Comment [address] [place] [address] [phone] 1 -- REFERENCE VALUE -- Synovial: <150/mcL Peritoneal: <500/mcL Pleural: <500/mcL Pericardial: <500/mcL 2 Differential performed on concentrated smear. 3 Acute inflammation present. Recommend correlation with microbiology culture studies. Reviewed by Dr. Donaldson 4 SEE RESULT BELOW Name: WILBERT CAR : [address]: Mack Padilla Acct: [id number] Unit: [id number] AGE: 34 Location: [facility] Re05/13/19 SEX: M Status: REG REF SPEC: [id number] NOBLE: 05/13/[address]: Mack PARKER REQ: [id number] RECD: 05/13/19 STATUS: COMP _ SOURCE: MISC FLUID SPDESC:ASPIRATE ORDERED: BF Cult/GS, MRSA/SA SSTI COMMENTS: Verbal to [id number] by [id number] at 2020 on 05/13/19. Results read back accurately. LEFT ANKLE ASPIRATE Procedure Result Reported Site Body Fluid Gram Stain Final 05/13/19- 1838 ML 4+ Neutrophils 2+ Gram Positive Cocci Intracellular Body Fluid Culture Final 05/17/19- 1012 ML Organism 1 MRSA Quantity 3+ 1. MRSA M.I.C. RX --------- ------ Penicillin >=0.5 R Clindamycin <=0.25 S Erythromycin >=8 R Gentamicin <=0.5 S Linezolid 2 S Oxacillin >=4 R * Quinupristin/Dalfopristin <=0.25 S Rifampin <=0.5 S Tetracycline <=1 S Doxycycline - Deduced S * Minocycline - Deduced S Trimethoprim/Sulfamethoxazole <=10 S Vancomycin 1 S Imipenem-Deduced R * Ampicillin/Sulbactam-Deduced R Cefazolin-Deduced R CONTINUED ON NEXT PAGE DEPARTMENT OF PATHOLOGY, [address] [place] [address] Eladio Donaldson M.D. Director [facility] # [id number] Specimen: [id number] Collected: 05/13/19 Received: 05/13/19 (Continued) Procedure Result Reported Site Body Fluid Culture Final (continued) * These antibiotics are not available in the [facility] Formulary Contact the Microbiology Department for any additional antibiotic reporting. MRSA/S. aureus SSTI PCR Final 05/13/19- 2020 ML Organism 1 MRSA POSITIVE Organism 2 S.AUREUS POSITIVE * ML - Main Lab . END OF REPORT DEPARTMENT OF PATHOLOGY, [address] [place] [address] Eladio Donaldson M.D. Director [facility] # [id number] 5 Test Result Flag Unit RefValue Crystal ID, Synovial Fl None seen None seen Reviewed By: Tech Test Performed by: [address] [address] Web Content Executive: Jonathan Loya M.D. Ph.D.; CLIA# [id number] Procedures Date Code Description Status 05/18/2019 33348 Amputation Leg Through Tibia & Fibula Completed 05/18/2019 96295 Amputation Leg Through Tibia & Fibula Completed 05/14/2019 23927 EKG, Interpretation Only Completed 05/14/2019 64481 Talectomy (Astragalectomy) Completed 05/14/2019 91576 Talectomy (Astragalectomy) Completed 05/14/2019 53519 Partial Excision Bone Tarsal/Metatarsal Completed 05/14/2019 54767 Partial Excision Bone Tarsal/Metatarsal Completed Medical Devices Description No Information Available Encounters Type Date Location Provider Dx Diagnosis Office Visit 08/19/2019 [facility] Sonam Banks.672 [facility], [facility] and foot Z89.512 Acquired absence of left leg below knee Office Visit 08/12/2019 [facility] Kaurheather William M86.672 Other chronic 2:00p For Infectious Asher, CHANGE CONTROL MANAGER osteomyelitis, left Diseases ankle and foot Z89.512 Acquired absence of left leg below knee E11.69 Type 2 diabetes mellitus with other specified complication Office Visit 07/01/2019 [facility] Kaur William M86.672 Other chronic 2:00p For Infectious Asher, CHANGE CONTROL MANAGER osteomyelitis, left Diseases ankle and foot 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69 Type 2 diabetes 11:57a For Infectious Asher, CHANGE CONTROL MANAGER mellitus with Diseases other specified complication M86.672 Other chronic osteomyelitis, left ankle and foot M86.172 Other acute osteomyelitis, left ankle and foot Office Visit 05/22/2019 [facility] Kaur William E11.610 Type 2 diabetes 2:24p For Infectious Asher, CHANGE CONTROL MANAGER mellitus w Diseases diabetic neuropathic arthropathy N17.9 Acute kidney failure, unspecified M86.672 Other chronic osteomyelitis, left ankle and foot Z89.512 Acquired absence of left leg below knee E11.69 Type 2 diabetes mellitus with other specified complication Office Visit 05/21/2019 9:43a [facility] Elizabeth Guerita, N17.9 Acute kidney Assoc,pc CHANGE CONTROL MANAGER failure, Hospitalists unspecified E11.9 Type 2 diabetes mellitus without complications I10 Essential (primary) hypertension Z68.42 Body mass index (BMI) 45.0-49.9, adult E66.01 Morbid (severe) obesity due to excess calories Office Visit 05/21/2019 [facility] Reece Cottrell E11.610 Type 2 diabetes 1:38p For Infectious Eloisa Ramírez mellitus w Diseases diabetic neuropathic arthropathy 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, left ankle and foot E11.69 Type 2 diabetes mellitus with other specified complication M86.672 Other chronic osteomyelitis, left ankle and foot N17.9 Acute kidney failure, unspecified Office Visit 05/20/2019 9:43a [facility] Elizabeth Guerita, N17.9 Acute kidney Assoc,pc CHANGE CONTROL MANAGER failure, Hospitalists unspecified E11.9 Type 2 diabetes mellitus without complications I10 Essential (primary) hypertension Z68.42 Body mass index (BMI) 45.0-49.9, adult E66.01 Morbid (severe) obesity due to excess calories Office Visit 05/19/2019 9:43a [facility] Elizabeth Guerita, N17.9 Acute kidney Assoc,pc CHANGE CONTROL MANAGER failure, Hospitalists unspecified E11.9 Type 2 diabetes mellitus without complications I10 Essential (primary) hypertension Z68.42 Body mass index (BMI) 45.0-49.9, adult E66.01 Morbid (severe) obesity due to excess calories Office Visit 05/18/2019 [facility] Reece Cottrell E11.610 Type 2 diabetes 1:44p For Andrey Ramírez M.D. mellitus w Diseases diabetic neuropathic arthropathy E11.69 Type 2 diabetes mellitus with other specified complication M86.672 Other chronic osteomyelitis, left ankle and foot N17.9 Acute kidney failure, unspecified Office Visit 05/18/2019 9:42a [facility] Elizabeth Guerita, N17.9 Acute kidney Assoc,pc CHANGE CONTROL MANAGER failure, Hospitalists unspecified E11.9 Type 2 diabetes mellitus without complications I10 Essential (primary) hypertension E66.01 Morbid (severe) obesity due to excess calories Office Visit 05/17/2019 [facility] N17.9 Acute kidney 9:42a parviz Lawton MD failure, Hospitalists unspecified E11.9 Type 2 diabetes mellitus without complications I10 Essential (primary) hypertension Office Visit 05/16/2019 [facility] N17.9 Acute kidney 9:42a parviz Lawton MD failure, Hospitalists unspecified E11.9 Type 2 diabetes mellitus without complications Office Visit 05/15/2019 [facility] E11.610 Type 2 diabetes 1:32p For Infectious Asher, CHANGE CONTROL MANAGER mellitus w Diseases diabetic neuropathic arthropathy R78.81 Bacteremia 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, left ankle and foot Office Visit 05/15/2019 [facility] Aguirre Jose J, E11.610 Type 2 diabetes 4:40p Endocrinology of MD [place] w [facility] diabetic neuropathic arthropathy E11.65 Type 2 diabetes mellitus with hyperglycemia Office Visit 05/15/2019 [facility] E11.9 Type 2 diabetes 9:41a parviz Lawton M.D. mellitus without Hospitalists complications I10 Essential (primary) hypertension E66.01 Morbid (severe) obesity due to excess calories Office Visit 05/14/2019 [facility] E11.610 Type 2 diabetes 9:41a parviz Lawton M.D. mellitus w Hospitalists diabetic neuropathic arthropathy I10 Essential (primary) hypertension Z79.4 penitentiary (current) use of insulin Office Visit 05/13/2019 [facility] Jose J, E11.610 Type 2 diabetes 4:39p Endocrinology of MD grzegorz bruner [facility] diabetic neuropathic arthropathy E11.65 Type 2 diabetes mellitus with hyperglycemia Office Visit 05/13/2019 [facility] E11.610 Type 2 diabetes 9:41a parviz Lawton M.D. mellitus w Hospitalists diabetic neuropathic arthropathy I10 Essential (primary) hypertension K21.9 Gastro-esophageal reflux disease without esophagitis Z79.4 vermin exterminator (current) use of insulin Z68.41 Body mass index (BMI) 40.0-44.9, adult Office Visit 04/01/2019 1:[facility]p [facility] M14.672 Charcot' s at Dariusz Meier M.D. joint, left ankle and foot Office Visit 02/25/2019 1:00p [facility] Yecenia Pruett4.672 Charcot' s at Dariusz Meier M.D. joint, left ankle and foot Office Visit 02/18/2019 9:30a [facility] Yecenia Pruett4.672 Charcot' s at Dariusz Meier M.D. joint, left ankle and foot Assessments Date Code Description Provider 08/19/2019 M86.672 Other chronic osteomyelitis, left Henry Meier M.D. ankle and foot 08/19/2019 Z89.512 Acquired absence of left leg below Henry Meier M.D. knee 08/12/2019 M86.672 Other chronic osteomyelitis, left Kaur Asher NP ankle and foot 08/12/2019 Z89.512 Acquired absence of left leg below Kaur Asher NP knee 08/12/2019 E11.69 Type 2 diabetes mellitus with Kaur Asher NP other specified complication 07/15/2019 M86.672 Other chronic osteomyelitis, left Henry Meier M.D. ankle and foot 07/15/2019 Z89.512 Acquired absence of left leg below Henry Meier M.D. knee 07/01/2019 M86.672 Other chronic osteomyelitis, left Kaur Asher NP ankle and foot 07/01/2019 E11.610 Type 2 diabetes mellitus with Kaur Asher NP diabetic neuropathic arthropathy 07/01/2019 Z79.2 vermin exterminator (current) use of Kaur Asher NP antibiotics 07/01/2019 E11.69 Type 2 diabetes mellitus with Kaur Asher NP other specified complication 06/24/2019 Z47.81 Encounter for orthopedic aftercare Henry Meier M.D. following surgical amputation 06/24/2019 Z89.512 Acquired absence of left leg below Henry Meier M.D. knee 06/17/2019 M86.672 Other chronic osteomyelitis, left Kaur Asher NP ankle and foot 06/17/2019 E11.610 Type 2 diabetes mellitus with Kaur Asher NP diabetic neuropathic arthropathy 06/17/2019 Z79.2 penitentiary (current) use of Kaur Asher NP antibiotics 06/17/2019 N17.9 Acute kidney failure, unspecified Kaur Asher NP 06/17/2019 E11.69 Type 2 diabetes mellitus with Kaur Asher NP other specified complication 06/03/2019 E11.610 Type 2 diabetes mellitus with Henry Meier M.D. diabetic neuropathic arthropathy 06/03/2019 Z47.89 Encounter for other orthopedic Henry Meier M.D. aftercare 05/27/2019 E11.69 Type 2 diabetes mellitus with Kaur William Asher, CHANGE CONTROL MANAGER other specified complication 05/27/2019 M86.672 Other chronic osteomyelitis, left Kaur Rodriguezjhonathan Asher, CHANGE CONTROL MANAGER ankle and foot 05/27/2019 M86.172 Other acute osteomyelitis, left Kaur Asher , CHANGE CONTROL MANAGER ankle and foot 05/22/2019 E11.610 Type 2 diabetes mellitus with Kaurheather Asher CHANGE CONTROL MANAGER diabetic neuropathic arthropathy 05/22/2019 N17.9 Acute kidney failure, unspecified Kaurheather Asher , CHANGE CONTROL MANAGER 05/22/2019 M86.672 Other chronic osteomyelitis, left Kaur Asher, CHANGE CONTROL MANAGER ankle and foot 05/22/2019 Z89.512 Acquired absence of left leg below Kaur Stewart Asher, ALETHA knee 05/22/2019 E11.69 Type 2 diabetes mellitus with Kaur Asher NP other specified complication 05/21/2019 E11.610 Type 2 diabetes mellitus with Reece Ramírez M.D. diabetic neuropathic arthropathy 05/21/2019 N17.9 Acute kidney failure, unspecified Elizabeth Guerita, CHANGE CONTROL MANAGER 05/21/2019 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, Reece Ramírez M.D. left ankle and foot 05/21/2019 E11.9 Type 2 diabetes mellitus without Elizabeth Guerita, CHANGE CONTROL MANAGER complications 05/21/2019 E11.69 Type 2 diabetes mellitus with Reece Ramírez M.D. other specified complication 05/21/2019 I10 Essential (primary) hypertension Elizabeth Guerita, CHANGE CONTROL MANAGER 05/21/2019 M86.672 Other chronic osteomyelitis, left Reece Ramírez M.D. ankle and foot 05/21/2019 Z68.42 Body mass index (BMI) 45.0-49.9, Elizabeth Guerita, CHANGE CONTROL MANAGER adult 05/21/2019 E66.01 Morbid (severe) obesity due to Elizabeth Guerita, CHANGE CONTROL MANAGER excess calories 05/21/2019 N17.9 Acute kidney failure, unspecified Reece Ramírez M.D. 05/20/2019 N17.9 Acute kidney failure, unspecified Elizabeth Guerita, CHANGE CONTROL MANAGER 05/20/2019 E11.9 Type 2 diabetes mellitus without Elizabeth Guerita, CHANGE CONTROL MANAGER complications 05/20/2019 I10 Essential (primary) hypertension Elizabeth Guerita, CHANGE CONTROL MANAGER 05/20/2019 Z68.42 Body mass index (BMI) 45.0-49.9, Elizabeth Guerita, CHANGE CONTROL MANAGER adult 05/20/2019 E66.01 Morbid (severe) obesity due to Elizabeth Guerita, CHANGE CONTROL MANAGER excess calories 05/19/2019 N17.9 Acute kidney failure, unspecified Elizabeth Guerita, CHANGE CONTROL MANAGER 05/19/2019 E11.9 Type 2 diabetes mellitus without Elizabeth Guerita, CHANGE CONTROL MANAGER complications 05/19/2019 I10 Essential (primary) hypertension Elizabeth Guerita, CHANGE CONTROL MANAGER 05/19/2019 Z68.42 Body mass index (BMI) 45.0-49.9, Elizabeth Guerita, CHANGE CONTROL MANAGER adult 05/19/2019 E66.01 Morbid (severe) obesity due to Elizabeth Guerita, CHANGE CONTROL MANAGER excess calories 05/18/2019 M86.672 Other chronic osteomyelitis, left Mack Cabrera RPA-C ankle and foot 05/18/2019 M86.672 Other chronic osteomyelitis, left Henry Meier M.D. ankle and foot 05/18/2019 E11.610 Type 2 diabetes mellitus with Reece Ramírez M.D. diabetic neuropathic arthropathy 05/18/2019 N17.9 Acute kidney failure, unspecified Elizabeth Guerita, CHANGE CONTROL MANAGER 05/18/2019 E11.69 Type 2 diabetes mellitus with Reece Ramírez M.D. other specified complication 05/18/2019 E11.9 Type 2 diabetes mellitus without Elizabeth Guerita, CHANGE CONTROL MANAGER complications 05/18/2019 M86.672 Other chronic osteomyelitis, left Reece Ramírez M.D. ankle and foot 05/18/2019 I10 Essential (primary) hypertension Elizabeth Guerita, CHANGE CONTROL MANAGER 05/18/2019 N17.9 Acute kidney failure, unspecified Reece Ramírez M.D. 05/18/2019 E66.01 Morbid (severe) obesity due to Elizabeth Guerita, CHANGE CONTROL MANAGER excess calories 05/17/2019 N17.9 Acute kidney failure, unspecified Christianne Crump MD 05/17/2019 E11.9 Type 2 diabetes mellitus without Christianne Crump MD complications 05/17/2019 I10 Essential (primary) hypertension Christianne Crump MD 05/16/2019 R78.81 Bacteremia Henry Meier M.D. 05/16/2019 E11.69 Type 2 diabetes mellitus with Henry Meier M.D. other specified complication 05/16/2019 N17.9 Acute kidney failure, unspecified Christianne Crump MD 05/16/2019 E11.9 Type 2 diabetes mellitus without Christianne Crump MD complications 05/15/2019 E11.610 Type 2 diabetes mellitus with Kaur Asher NP diabetic neuropathic arthropathy 05/15/2019 R78.81 Bacteremia Kaur Asher NP 05/15/2019 E11.610 Type 2 diabetes mellitus with Timothy Lux MD diabetic neuropathic arthropathy 05/15/2019 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, Kaur Asher NP left ankle and foot 05/15/2019 E11.9 Type 2 diabetes mellitus without Kimberly Menard M.D. complications 05/15/2019 E11.65 Type 2 diabetes mellitus with Timothy Lux MD hyperglycemia 05/15/2019 M14.672 Charcot's joint, left ankle and Henry Meier M.D. foot 05/15/2019 I10 Essential (primary) hypertension Kimberly Menard M.D. 05/15/2019 M86.672 Other chronic osteomyelitis, left Henry Meier M.D. ankle and foot 05/15/2019 E66.01 Morbid (severe) obesity due to Kimberly Menard M.D. excess calories 05/14/2019 E11.9 Type 2 diabetes mellitus without Hitesh Hopper M.D., [facility] complications 05/14/2019 M14.672 Charcot's joint, left ankle and Mack Cabrera, [facility] foot 05/14/2019 M14.672 Charcot's joint, left ankle and Henry Meier M.D. foot 05/14/2019 E11.610 Type 2 diabetes mellitus with Kimberly Menard M.D. diabetic neuropathic arthropathy 05/14/2019 I10 Essential (primary) hypertension Kimberly Menard M.D. 05/14/2019 Z79.4 penitentiary (current) use of insulin Kimberly Menard M.D. 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 foot 05/13/2019 S92.115A Nondisplaced fracture of neck of Henry Meier M.D. left talus, initial encounter for closed fracture 05/13/2019 E11.610 Type 2 diabetes mellitus with Kimberly Menard M.D. diabetic neuropathic arthropathy 05/13/2019 E11.65 Type 2 diabetes mellitus with Timothy Lux MD hyperglycemia 05/13/2019 I10 Essential (primary) hypertension Kimberly Menard M.D. 05/13/2019 K21.9 Gastro-esophageal reflux disease Kimberly Menard M.D. without esophagitis 05/13/2019 Z79.4 vermin exterminator (current) use of insulin Kimberly Menard M.D. 05/13/2019 Z68.41 Body mass index (BMI) 40.0-44.9, Kimberly Menard M.D. adult 04/01/2019 M14.672 Charcot's joint, left ankle and Henry Meier M.D. foot 02/25/2019 M14.672 Charcot's joint, left ankle and Henry Meier M.D. foot 02/18/2019 M14.672 Charcot's joint, left ankle and Henry Meier M.D. foot Plan of Treatment Future Appointment(s):09/09/2019 1:00 pm - Henry Meier M.D. at [facility] at [facility]/15/2020 - Henry Meier M.D.M86.672 Other chronic osteomyelitis, left ankle and footFollow up:Follow up: 3 ntcgjN96.512 Acquired absence of left leg below knee Functional Status Description No Information Available Mental Status Description No Information Available Referrals Description No Information Available
--- OUTSIDE RECORDS SUMMARY | 2019-09-06 14:21 | XMS REPORT | Continuity of Care Document ---
:1985 External Reference #:[id number] Author Name Henry Meier M.D. 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 07/15/2019 5-325mg Tablets every 12 hours as needed for pain Ondansetron HCL one by mouth 30tabs Reece Ramírez 06/15/2019 4mg every 8 hours M.D. Tablets as needed for nausea OT/PT Wheelchair icd-10 dx: Z89.512 Kaur William 06/12/2019 Mobility Evaluation z89.512 ALETHA Asher Gabapentin 1 by mouth 60caps Luis Walsh MD 06/03/2019 300mg every 12 hours Capsules Fluoxetine HCL 1 po qd 30caps Unknown [...] Medications Ceftaroline 600MG IV twice daily Reece Ramírez, 06/15/2019 - through [facility] M.D. 07/01/2019 Zyvox iv every 12 hours Unknown 05/18/2019 - 600mg/300ML x 42 days through 06/18/2019 Solution [facility] Immunizations Description No Information Available Vital Signs Date Vital Result Comment 07/15/2019 1:31pm Heart Rate 108 /min BP Systolic Sitting 136 mmHg BP Diastolic Sitting 102 mmHg Respiratory Rate 20 /min Body Temperature 97.1 F Pain Level 0 O2 % BldC Oximetry 98 % 07/01/2019 2:26pm Height 69 inches 5'9" in wheelchair Weight 311.00 lb with wheelchair Heart Rate 98 /min BP Systolic Sitting 132 mmHg BP Diastolic Sitting 90 mmHg Body Temperature 96.8 F Pain Level 5 stump area O2 % BldC Oximetry 97 % BMI (Body Mass Index) 45.9 kg/m2 Results Test Acquired Date Facility Test Result H/L Range Note Body Fluid 05/13/2019 [facility] Body Fluid Synovial Fluid Cell Count [address] [place] [address] [phone] Body Fluid Appearance Cloudy Body Fluid Color Marisol Body Fluid Volume 4 mL Body Fluid WBC 739573 /mcL Normal 1 Body Fluid RBC 86187 /mcL Body Fluid Neutrophils 90 % Body Fluid Lymph 3 % Body Fluid [place] 7 % Body Fluid Total Cells Counted 100 Body Fluid Comment (SEE NOTE) 2 Fluid Reviewed By (SEE NOTE) 3 Laboratory test 05/13/2019 [facility] Gram Stain <pending> finding [address] [place] [address] [phone] Body Fluid Crystals <pending> Body Fluid C&S 05/13/2019 [facility] Body Fluid Cult SEE RESULT [address] [place] [address] [phone] Laboratory test 05/13/2019 [facility] Miscellaneous Test See Comment [address] [place] [address] [phone] 1 -- REFERENCE VALUE -- Synovial: <150/mcL Peritoneal: <500/mcL Pleural: <500/mcL Pericardial: <500/mcL 2 Differential performed on concentrated smear. 3 Acute inflammation present. Recommend correlation with microbiology culture studies. Reviewed by Dr. Donaldson 4 SEE RESULT BELOW Name: WILBERT CAR : [address]: Mack Padilla Acct: [id number] Unit: [id number] AGE: 34 Location: [facility] Re05/13/19 SEX: M Status: REG REF SPEC: [id number] NOBLE: 05/13/[address]: Mack PARKER REQ: [id number] RECD: 05/13/19 STATUS: COMP _ SOURCE: MISC FLUID SPDESC:ASPIRATE ORDERED: BF Cult/GS, MRSA/SA SSTI COMMENTS: Verbal to [id number] by [id number] at 2020 on 05/13/19. Results read back [...] CONTINUED ON NEXT PAGE DEPARTMENT OF PATHOLOGY, [address] [place] [address] Eladio Donaldson M.D. Director [facility] # [id number] Specimen: [id number] Collected: 05/13/19 Received: 05/13/19 (Continued) Procedure Result Reported Site Body Fluid Culture Final (continued) * These antibiotics are not available in the [facility] Formulary Contact the Microbiology Department for any additional antibiotic reporting. MRSA/S. aureus SSTI PCR Final 05/13/192020 ML Organism 1 MRSA POSITIVE Organism 2 S.AUREUS POSITIVE * ML - Main Lab . END OF REPORT DEPARTMENT OF PATHOLOGY, [address] [place] [address] Eladio Donaldson M.D. Director CLIA # [id number] 5 Test Result Flag Unit RefValue Crystal ID, Synovial Fl None seen None seen Reviewed By: Tech Test Performed by: [facility] - [address] [address] Detention Attendant: Jonathan Loya M.D. Ph.D.; CLIA# [id number] Procedures Date Code Description Status 05/18/2019 80805 Amputation Leg Through Tibia & Fibula Completed 05/18/2019 48967 Amputation Leg Through Tibia & Fibula Completed 05/14/2019 50299 EKG, Interpretation Only Completed 05/14/2019 Talectomy (Astragalectomy) Completed 05/14/2019 Talectomy (Astragalectomy) Completed 05/14/2019 Partial Excision Bone Tarsal/Metatarsal Completed 05/14/2019 Partial Excision Bone Tarsal/Metatarsal Completed 01/21/2019 08800 Rad Exam; Foot Comp Completed Medical Devices Description No Information Available Encounters Type Date Location Provider Dx Diagnosis Office Visit 07/01/2019 [facility] Kaur William M86.672 Other chronic 2:00p Infectious Asher, OFFICE ADMIN osteomyelitis, Diseases left ankle and foot 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 Z79.2 artifacts conservator (current) use of antibiotics E11.69 Type 2 diabetes mellitus with other specified complication Office Visit 06/17/2019 [facility] Kaur William M86.672 Other chronic 1:30p For Infectious Asher, OFFICE ADMIN osteomyelitis, left Diseases ankle and foot 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 Z79.2 artifacts conservator (current) use of antibiotics N17.9 Acute kidney failure, unspecified E11.69 Type 2 diabetes mellitus with other specified complication Office Visit 05/27/2019 [facility] Kaur William E11.69 Type 2 diabetes 11:57a For Infectious Asher, OFFICE ADMIN mellitus with Diseases other specified complication M86.672 Other chronic osteomyelitis, left ankle and foot M86.172 Other acute osteomyelitis, left ankle and foot Office Visit 05/22/2019 [facility] Kaur William E11.610 Type 2 diabetes 2:24p For Infectious Asher, OFFICE ADMIN mellitus w Diseases diabetic neuropathic arthropathy N17.9 Acute kidney failure, unspecified M86.672 Other chronic osteomyelitis, left ankle and foot Z89.512 Acquired absence of left leg below knee E11.69 Type 2 diabetes mellitus with other specified complication Office Visit 05/21/2019 [facility] Reece Cottrell E11.610 Type 2 diabetes 1:38p For Infectious Eloisa Ramírez mellitus w Diseases diabetic neuropathic arthropathy 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, left ankle and foot E11.69 Type 2 diabetes mellitus with other specified complication M86.672 Other chronic osteomyelitis, left ankle and foot N17.9 Acute kidney failure, unspecified Office Visit 05/21/2019 9:43a [facility] Elizabeth Guerita, N17.9 Acute kidney Assoc,pc OFFICE ADMIN failure, Hospitalists unspecified E11.9 Type 2 diabetes mellitus without complications I10 Essential (primary) hypertension Z68.42 Body mass index (BMI) 45.0-49.9, adult E66.01 Morbid (severe) obesity due to excess calories Office Visit 05/20/2019 9:43a [facility] Elizabeth Guerita, N17.9 Acute kidney Assoc,pc OFFICE ADMIN failure, Hospitalists unspecified E11.9 Type 2 diabetes mellitus without complications I10 Essential (primary) hypertension Z68.42 Body mass index (BMI) 45.0-49.9, adult E66.01 Morbid (severe) obesity due to excess calories Office Visit 05/19/2019 9:43a [facility] Elizabeth Guerita, N17.9 Acute kidney Assoc,pc OFFICE ADMIN failure, Hospitalists unspecified E11.9 Type 2 diabetes mellitus without complications I10 Essential (primary) hypertension Z68.42 Body mass index (BMI) 45.0-49.9, adult E66.01 Morbid (severe) obesity due to excess calories Office Visit 05/18/2019 [facility] Reece Cottrell E11.610 Type 2 diabetes 1:44p For Infectious Eloisa Ramírez mellitus w Diseases diabetic neuropathic arthropathy E11.69 Type 2 diabetes mellitus with other specified complication M86.672 Other chronic osteomyelitis, left ankle and foot N17.9 Acute kidney failure, unspecified Office Visit 05/18/2019 9:42a [facility] Elizabeth Guerita, N17.9 Acute kidney Assoc,pc OFFICE ADMIN failure, Hospitalists unspecified E11.9 Type 2 diabetes mellitus without complications I10 Essential (primary) hypertension E66.01 Morbid (severe) obesity due to excess calories Office Visit 05/17/2019 [facility] N17.9 Acute kidney 9:42a Assparviz parrish MD failure, Hospitalists unspecified E11.9 Type 2 diabetes mellitus without complications I10 Essential (primary) hypertension Office Visit 05/16/2019 [facility] N17.9 Acute kidney 9:42a parviz Lawton MD failure, Hospitalists unspecified E11.9 Type 2 diabetes mellitus without complications Office Visit 05/15/2019 [facility] Lux, E11.610 Type 2 diabetes 4:40p Endocrinology of [place] mellitus w Planning Feeder diabetic neuropathic arthropathy E11.65 Type 2 diabetes mellitus with hyperglycemia Office Visit 05/15/2019 [facility] Kaur William E11.610 Type 2 diabetes 1:32p For Infectious [place], OFFICE ADMIN mellitus w Diseases diabetic neuropathic arthropathy R78.81 Bacteremia 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, left ankle and foot Office Visit 05/15/2019 [facility] E11.9 Type 2 diabetes 9:41a parviz Lawton M.D. mellitus without Hospitalists complications I10 Essential (primary) hypertension E66.01 Morbid (severe) obesity due to excess calories Office Visit 05/14/2019 [facility] E11.610 Type 2 diabetes 9:41a parviz Lawton M.D. mellitus w Hospitalists diabetic neuropathic arthropathy I10 Essential (primary) hypertension Z79.4 artifacts conservator (current) use of insulin Office Visit 05/13/2019 [facility], E11.610 Type 2 diabetes 4:39p Endocrinology of [place] mellitus w [facility] diabetic neuropathic arthropathy E11.65 Type 2 diabetes mellitus with hyperglycemia Office Visit 05/13/2019 [facility] E11.610 Type 2 diabetes 9:41a parviz Lawton M.D. mellitus w Hospitalists diabetic neuropathic arthropathy I10 Essential (primary) hypertension K21.9 Gastro-esophageal reflux disease without esophagitis Z79.4 intermediate (current) use of insulin Z68.41 Body mass index (BMI) 40.0-44.9, adult Office Visit 04/01/2019 1:00p [facility] Henry M14.672 [facility] Dariusz Meier M.D. joint, left ankle and foot Office Visit 02/25/2019 1:00p [facility] Henry Pruett4.672 [place] at Dariusz Meier M.D. joint, left ankle and foot Office Visit 02/18/2019 9:30a [facility] Pruett4.672 Charcot' s at Dariusz Meier M.D. joint, left ankle and foot Office Visit 01/21/2019 1:00p [facility] Figueroa M14.672 [facility] at Dariusz Meier M.D. joint, left ankle and foot Assessments Date Code Description Provider 07/15/2019 M86.672 Other chronic osteomyelitis, left Henry Meier M.D. ankle and foot 07/01/2019 M86.672 Other chronic osteomyelitis, left Kaur Asher, ALETHA ankle and foot 07/01/2019 E11.610 Type 2 diabetes mellitus with Kaur Asher NP diabetic neuropathic arthropathy 07/01/2019 Z79.2 intermediate (current) use of Kaur Asher NP antibiotics [...] Asher NP diabetic neuropathic arthropathy 06/17/2019 Z79.2 intermediate (current) use of Kaur Asher NP antibiotics [...] with Kaur Asher NP other specified complication 05/27/2019 M86.672 Other chronic osteomyelitis, left Kaur Asher NP ankle and foot 05/27/2019 M86.172 Other acute osteomyelitis, left Kaur Asher OFFICE ADMIN ankle and foot 05/22/2019 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 diabetic neuropathic arthropathy 05/21/2019 N17.9 Acute kidney failure, unspecified Elizabeth Guerita, OFFICE ADMIN 05/21/2019 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, Reece Ramírez M.D. left ankle and foot 05/21/2019 E11.9 Type 2 diabetes mellitus without Elizabeth Guerita, OFFICE ADMIN complications 05/21/2019 E11.69 Type 2 diabetes mellitus with Reece Ramírez M.D. other specified complication 05/21/2019 I10 Essential (primary) hypertension Elizabeth Guerita, OFFICE ADMIN 05/21/2019 M86.672 Other chronic osteomyelitis, left Reece Ramírez M.D. ankle and foot 05/21/2019 Z68.42 Body mass index (BMI) 45.0-49.9, Elizabeth Guerita, OFFICE ADMIN adult 05/21/2019 E66.01 Morbid (severe) obesity due to Elizabeth Guerita, OFFICE ADMIN excess calories 05/21/2019 N17.9 Acute kidney failure, unspecified Reece Ramírez M.D. 05/20/2019 N17.9 Acute kidney failure, unspecified Elizabeth Guerita, OFFICE ADMIN 05/20/2019 E11.9 Type 2 diabetes mellitus without Elziabeth Guerita, OFFICE ADMIN complications 05/20/2019 I10 Essential (primary) hypertension Elizabeth Guerita, OFFICE ADMIN 05/20/2019 Z68.42 Body mass index (BMI) 45.0-49.9, Elizabeth Guerita, OFFICE ADMIN adult 05/20/2019 E66.01 Morbid (severe) obesity due to Elizabeth Guerita, OFFICE ADMIN excess calories 05/19/2019 N17.9 Acute kidney failure, unspecified Elizabeth Guerita, OFFICE ADMIN 05/19/2019 E11.9 Type 2 diabetes mellitus without Elizabeth Guerita, OFFICE ADMIN complications 05/19/2019 I10 Essential (primary) hypertension Elizabeth Guerita, OFFICE ADMIN 05/19/2019 Z68.42 Body mass index (BMI) 45.0-49.9, Elizabeth Guerita, OFFICE ADMIN adult 05/19/2019 E66.01 Morbid (severe) obesity due to Elizabeth Guerita, OFFICE ADMIN excess calories 05/18/2019 M86.672 Other chronic osteomyelitis, left JASMYN Rosas ankle and foot 05/18/2019 M86.672 Other chronic osteomyelitis, left Henry Meier M.D. ankle and foot 05/18/2019 E11.610 Type 2 diabetes mellitus with Reece Ramírez M.D. diabetic neuropathic arthropathy 05/18/2019 N17.9 Acute kidney failure, unspecified Elizabeth Guerita, OFFICE ADMIN 05/18/2019 E11.69 Type 2 diabetes mellitus with Reece Ramírez M.D. other specified complication 05/18/2019 E11.9 Type 2 diabetes mellitus without Elizabeth Guerita, OFFICE ADMIN complications 05/18/2019 M86.672 Other chronic osteomyelitis, left Reece Ramírez M.D. ankle and foot 05/18/2019 I10 Essential (primary) hypertension Elizabeth Guerita, OFFICE ADMIN 05/18/2019 N17.9 Acute kidney failure, unspecified Reece Ramírez M.D. 05/18/2019 E66.01 Morbid (severe) obesity due to Elizabeth Guerita, OFFICE ADMIN excess calories 05/17/2019 N17.9 Acute kidney failure, [...] Arthritis due to other bacteria, Kaur Asher , ALETHA left ankle and foot 05/15/2019 E11.9 Type [...] 2 diabetes mellitus without Hitesh Hopper M.D., FAC, FSCAI complications 05/14/2019 M14.672 Charcot's joint, left ankle and Mack Cabrera RPA-C foot 05/14/2019 M14.672 Charcot's joint, left ankle and Henry Meier M.D. foot 05/14/2019 E11.610 Type 2 diabetes mellitus with Kimberly Menard M.D. diabetic neuropathic arthropathy 05/14/2019 I10 Essential (primary) hypertension Kimberly Menard M.D. 05/14/2019 Z79.4 intermediate (current) use of insulin Kimberly Menard M.D. [...] Kimberly Menard M.D. without esophagitis 05/13/2019 Z79.4 intermediate (current) use of insulin Kimberly Menard M.D. 05/13/2019 Z68.41 Body mass index (BMI) 40.0-44.9, Kimberly Menard M.D. adult 04/01/2019 M14.672 Charcot's joint, left ankle and Henry Meier M.D. foot 02/25/2019 M14.672 Charcot's joint, left ankle and Henry Meier M.D. foot 02/18/2019 M14.672 Charcot's joint, left ankle and Henry Meier M.D. foot 01/21/2019 M14.672 Charcot's joint, left ankle and Henry Meier M.D. foot Plan of Treatment Future Appointment(s):08/19/2019 1:00 pm - Henry Meier M.D. at [facility] at [facility]/18/2019 2:00 pm - Kaur Asher NP at [facility]/11/2019 - Henry Meier M.D.M86.672 Other chronic osteomyelitis, left ankle and footNew Medication:[place] 5-325 mg - 1 by mouth every 12 hours as needed for painFollow up:4-5 weeks Functional Status Description No Information Available Mental Status Description No Information Available Referrals Description No Information Available
--- OUTSIDE RECORDS SUMMARY | 2019-09-06 14:21 | XMS REPORT | Continuity of Care Document ---
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 07/15/2019 5-325mg Tablets every 12 hours as needed for pain Ondansetron HCL one by mouth 30tabs Reece Ramírez, 06/15/2019 4mg every 8 hours M.D. Tablets [...] 600mg/300ML x 42 days through 06/18/2019 Solution Brtrini Immunizations Description No Information Available Vital Signs Date Vital Result Comment 08/12/2019 2:14pm Height 69 inches 5'9" Weight 280.00 lb per pt Heart Rate 92 /min BP Systolic Sitting 142 mmHg BP Diastolic Sitting 90 mmHg Respiratory Rate 14 /min Body Temperature 97.0 F BMI (Body Mass Index) 41.3 kg/m2 07/15/2019 1:31pm Heart Rate 108 /min BP Systolic Sitting 136 mmHg BP Diastolic Sitting 102 mmHg Respiratory Rate 20 /min Body Temperature 97.1 F Pain Level 0 O2 % BldC Oximetry 98 % Results Test Acquired Date Facility Test Result H/L Range Note Body Fluid 05/13/2019 [facility] Body Fluid Synovial Fluid Cell Count [address] [place] [address] [phone] Body Fluid Appearance Cloudy Body Fluid Color Marisol Body Fluid Volume 4 mL Body Fluid WBC 746531 /mcL Normal 1 Body Fluid RBC 02135 /mcL Body Fluid Neutrophils 90 % Body Fluid Lymph 3 % Body Fluid Travis 7 % Body Fluid Total Cells Counted 100 Body Fluid Comment (SEE NOTE) 2 Fluid Reviewed By (SEE NOTE) 3 Laboratory test 05/13/2019 [facility] Gram Stain <pending> finding [address] [place] [address] [phone] Body Fluid Crystals <pending> Body Fluid C&S 05/13/2019 [facility] Body Fluid Cult SEE RESULT [address] [place] [address] [phone] Laboratory test 05/13/2019 [facility] Miscellaneous Test See Comment [address] [place] [address] [phone] 1 -- REFERENCE VALUE -- Synovial: <150/mcL Peritoneal: <500/mcL Pleural: <500/mcL Pericardial: <500/mcL 2 Differential performed on concentrated smear. 3 Acute inflammation present. Recommend correlation with microbiology culture studies. Reviewed by Dr. Donaldson 4 SEE RESULT BELOW Name: WILBERT CAR : [address]: Mack Padilla Acct: [id number] Unit: [id number] AGE: 34 Location: [facility] Re05/13/19 SEX: M Status: REG REF SPEC: [id number] NOBLE: 05/13/[address]: Mack PARKER REQ: [id number] RECD: 05/13/19 STATUS: COMP _ SOURCE: MISC FLUID SPDESC:ASPIRATE ORDERED: BF Cult/GS, MRSA/SA SSTI COMMENTS: Verbal to [id number] by [id number] at 2020 on 05/13/19. Results read back [...] CONTINUED ON NEXT PAGE DEPARTMENT OF PATHOLOGY, [address] [place] [address] Eladio Donaldson M.D. Director [facility] # [id number] Specimen: [id number] Collected: 05/13/19 Received: 05/13/19 (Continued) Procedure Result Reported Site Body Fluid Culture Final (continued) * These antibiotics are not available in the [facility] Formulary Contact the Microbiology Department for any additional antibiotic reporting. MRSA/S. aureus SSTI PCR Final 05/13/192020 ML Organism 1 MRSA POSITIVE Organism 2 S.AUREUS POSITIVE * ML - Main Lab . END OF REPORT DEPARTMENT OF PATHOLOGY, [address] [place] [address] Eladio Donaldson M.D. Director CLIA # [id number] 5 Test Result Flag Unit RefValue Crystal ID, Synovial Fl None seen None seen Reviewed By: Tech Test Performed by: [facility] - [address] [address] Creosoting Engineer: Jonathan Loya M.D. Ph.D.; CLIA# [id number] Procedures Date Code Description Status 05/18/2019 62412 Amputation Leg Through Tibia & Fibula Completed 05/18/2019 50662 Amputation Leg Through Tibia & Fibula Completed 05/14/2019 59847 EKG, Interpretation Only Completed 05/14/2019 Talectomy (Astragalectomy) Completed 05/14/2019 Talectomy (Astragalectomy) Completed 05/14/2019 Partial Excision Bone Tarsal/Metatarsal Completed 05/14/2019 Partial Excision Bone Tarsal/Metatarsal Completed Medical Devices Description No Information Available Encounters Type Date Location Provider Dx Diagnosis Office Visit 07/01/2019 [facility] Kaur William M86.672 Other chronic 2:00p Infectious Asher, [employer] osteomyelitis, Diseases left ankle and foot 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 Z79.2 intermediate (current) use of antibiotics E11.69 Type 2 diabetes mellitus with other specified complication Office Visit 06/17/2019 [facility] Kaur William M86.672 Other chronic 1:30p For Infectious Asher, [employer] osteomyelitis, left Diseases ankle and foot 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 Z79.2 medical terminologist (current) use of antibiotics N17.9 Acute kidney failure, unspecified E11.69 Type 2 diabetes mellitus with other specified complication Office Visit 05/27/2019 [facility] Kaur William E11.69 Type 2 diabetes 11:57a For Infectious Asher, [employer] mellitus with Diseases other specified complication M86.672 Other chronic osteomyelitis, left ankle and foot M86.172 Other acute osteomyelitis, left ankle and foot Office Visit 05/22/2019 [facility] Kaur William E11.610 Type 2 diabetes 2:24p For Infectious Asher, [employer] mellitus w Diseases diabetic neuropathic arthropathy N17.9 Acute kidney failure, unspecified M86.672 Other chronic osteomyelitis, left ankle and foot Z89.512 Acquired absence of left leg below knee E11.69 Type 2 diabetes mellitus with other specified complication Office Visit 05/21/2019 [facility] Reece Cottrell E11.610 Type 2 diabetes 1:38p For Infectious Eloisa Ramírez mellitus w Diseases diabetic neuropathic arthropathy 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, left ankle and foot E11.69 Type 2 diabetes mellitus with other specified complication M86.672 Other chronic osteomyelitis, left ankle and foot N17.9 Acute kidney failure, unspecified Office Visit 05/21/2019 9:43a [facility] Elizabeth Ugerita, N17.9 Acute kidney Assoc,pc [employer] failure, Hospitalists unspecified E11.9 Type 2 diabetes mellitus without complications I10 Essential (primary) hypertension Z68.42 Body mass index (BMI) 45.0-49.9, adult E66.01 Morbid (severe) obesity due to excess calories Office Visit 05/20/2019 9:43a [facility] Elizabeth Guerita, N17.9 Acute kidney Assoc,pc [employer] failure, Hospitalists unspecified E11.9 Type 2 diabetes mellitus without complications I10 Essential (primary) hypertension Z68.42 Body mass index (BMI) 45.0-49.9, adult E66.01 Morbid (severe) obesity due to excess calories Office Visit 05/19/2019 9:43a [facility] Elizabeth Guerita, N17.9 Acute kidney Assoc,pc [employer] failure, Hospitalists unspecified E11.9 Type 2 diabetes mellitus without complications I10 Essential (primary) hypertension Z68.42 Body mass index (BMI) 45.0-49.9, adult E66.01 Morbid (severe) obesity due to excess calories Office Visit 05/18/2019 [facility] Reece Cottrell E11.610 Type 2 diabetes 1:44p For Infectious Eloisa Ramírez mellitus w Diseases diabetic neuropathic arthropathy E11.69 Type 2 diabetes mellitus with other specified complication M86.672 Other chronic osteomyelitis, left ankle and foot N17.9 Acute kidney failure, unspecified Office Visit 05/18/2019 9:42a [facility] Elizabeth Guerita, N17.9 Acute kidney Assoc,pc [employer] failure, Hospitalists unspecified E11.9 Type 2 diabetes mellitus without complications I10 Essential (primary) hypertension E66.01 Morbid (severe) obesity due to excess calories Office Visit 05/17/2019 [facility] N17.9 Acute kidney 9:42a Assparviz parrish MD failure, Hospitalists unspecified E11.9 Type 2 diabetes mellitus without complications I10 Essential (primary) hypertension Office Visit 05/16/2019 [facility] N17.9 Acute kidney 9:42a Assparviz parrish MD failure, Hospitalists unspecified E11.9 Type 2 diabetes mellitus without complications Office Visit 05/15/2019 [facility] Jose J, E11.610 Type 2 diabetes 4:40p Endocrinology of mellitus w Sugarcane Planter diabetic neuropathic arthropathy E11.65 Type 2 diabetes mellitus with hyperglycemia Office Visit 05/15/2019 [facility] Kaur William E11.610 Type 2 diabetes 1:32p For Infectious Asher, [employer] mellitus w Diseases diabetic neuropathic arthropathy R78.81 Bacteremia 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, left ankle and foot [facility] Type 2 diabetes 9:41a parviz Lawton M.D. mellitus without Hospitalists complications I10 Essential (primary) hypertension E66.01 Morbid (severe) obesity due to excess calories Office Visit 05/14/2019 [facility] Kimberly E11.610 Type 2 diabetes 9:41a parviz Lawton M.D. mellitus w Hospitalists diabetic neuropathic arthropathy I10 Essential (primary) hypertension Z79.4 medical terminologist (current) use of insulin Office Visit 05/13/2019 [facility], E11.610 Type 2 diabetes 4:39p Endocrinology of MD mellitus w Sugarcane Planter diabetic neuropathic arthropathy E11.65 Type 2 diabetes mellitus with hyperglycemia Office Visit 05/13/2019 [facility] Kimberly E11.610 Type 2 diabetes 9:41a parviz Lawton M.D. mellitus w Hospitalists diabetic neuropathic arthropathy I10 Essential (primary) hypertension K21.9 Gastro-esophageal reflux disease without esophagitis Z79.4 medical terminologist (current) use of insulin Z68.41 Body mass index (BMI) 40.0-44.9, adult Office Visit 04/01/2019 1:00p [facility] Henry M14.672 Charcot' s at Dariusz Meier M.D. joint, left ankle and foot Office Visit 02/25/2019 1:00p [facility] Henry Pruett4.672 Charcot' s at Dariusz Meier M.D. joint, left ankle and foot Office Visit 02/18/2019 9:30a [facility] Henry Pruett4.672 Charcot' s at Dariusz Meier M.D. 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 diabetic neuropathic arthropathy 05/21/2019 N17.9 Acute kidney failure, unspecified Elizabeth Guerita, [employer] 05/21/2019 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, Reece Ramírez M.D. left ankle and foot 05/21/2019 E11.9 Type 2 diabetes mellitus without Elizabeth Guerita, [employer] complications 05/21/2019 E11.69 Type 2 diabetes mellitus with Reece Ramírez M.D. other specified complication 05/21/2019 I10 Essential (primary) hypertension Elizabeth Guerita, [employer] 05/21/2019 M86.672 Other chronic osteomyelitis, left Reece Ramírez M.D. ankle and foot 05/21/2019 Z68.42 Body mass index (BMI) 45.0-49.9, Elizabeth Guerita, [employer] adult 05/21/2019 E66.01 Morbid (severe) obesity due to Elizabeth Guerita, [employer] excess calories 05/21/2019 N17.9 Acute kidney failure, unspecified Reece Ramírez M.D. 05/20/2019 N17.9 Acute kidney failure, unspecified Elizabeth Guerita, [employer] 05/20/2019 E11.9 Type 2 diabetes mellitus without Elizabeth Guerita, [employer] complications 05/20/2019 I10 Essential (primary) hypertension Elizabeth Guerita, [employer] 05/20/2019 Z68.42 Body mass index (BMI) 45.0-49.9, Elizabeth Guerita, [employer] adult 05/20/2019 E66.01 Morbid (severe) obesity due to Elizabeth Guerita, [employer] excess calories 05/19/2019 N17.9 Acute kidney failure, unspecified Elizabeth Guerita, [employer] 05/19/2019 E11.9 Type 2 diabetes mellitus without Elizabeth Guerita, [employer] complications 05/19/2019 I10 Essential (primary) hypertension Elizabeth Guerita, [employer] 05/19/2019 Z68.42 Body mass index (BMI) 45.0-49.9, Elizabeth Guerita, [employer] adult 05/19/2019 E66.01 Morbid (severe) obesity due to Elizabeth Guerita, [employer] excess calories 05/18/2019 M86.672 Other chronic osteomyelitis, left Mack Cabrera , RPA-C ankle and foot 05/18/2019 M86.672 Other chronic osteomyelitis, left Henry Meier M.D. ankle and foot 05/18/2019 E11.610 Type 2 diabetes mellitus with Reece Ramírez M.D. diabetic neuropathic arthropathy 05/18/2019 N17.9 Acute kidney failure, unspecified Elizabeth Guerita, [employer] 05/18/2019 E11.69 Type 2 diabetes mellitus with Reece Ramírez M.D. other specified complication 05/18/2019 E11.9 Type 2 diabetes mellitus without Elizabeth Guerita, [employer] complications 05/18/2019 M86.672 Other chronic osteomyelitis, left Reece Ramírez M.D. ankle and foot 05/18/2019 I10 Essential (primary) hypertension Elizabeth Guerita, [employer] 05/18/2019 N17.9 Acute kidney failure, unspecified Reece Ramírez M.D. 05/18/2019 E66.01 Morbid (severe) obesity due to Elizabeth Guerita, [employer] excess calories 05/17/2019 N17.9 Acute kidney failure, [...] due to other bacteria, Kaur Asher , [employer] left ankle and foot 05/15/2019 E11.9 Type 2 diabetes mellitus without Kimberly Menard M.D. complications 05/15/2019 E11.65 Type 2 diabetes mellitus with Timothy Lux MD hyperglycemia 05/15/2019 M14.672 Charcot's joint, left ankle and Henry Meier M.D. foot 05/15/2019 I10 Essential (primary) hypertension Kimberly Mneard M.D. 05/15/2019 M86.672 Other chronic osteomyelitis, left Henry Meier M.D. ankle and foot 05/15/2019 E66.01 Morbid (severe) obesity due to Kimberly Menard M.D. excess calories 05/14/2019 E11.9 Type 2 diabetes mellitus without Hitesh Hopper M.D., [facility], [facility] complications 05/14/2019 M14.672 Charcot's joint, left ankle and Mack Cabrera, [facility] foot 05/14/2019 M14.672 Charcot's joint, left ankle and Henry Meier M.D. foot 05/14/2019 E11.610 Type 2 diabetes mellitus with Kimberly Mneard M.D. diabetic neuropathic arthropathy 05/14/2019 I10 Essential (primary) hypertension Kimberly Menard M.D. 05/14/2019 Z79.4 medical terminologist (current) use of insulin Kimberly Menard M.D. 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 foot 05/13/2019 S92.115A Nondisplaced fracture of neck of Henry Meier M.D. left talus, initial encounter for closed fracture 05/13/2019 E11.610 Type 2 diabetes mellitus with Kimberly Sailaja, M.D. diabetic neuropathic arthropathy 05/13/2019 E11.65 Type [...] 1:00 pm - Henry Meier M.D. at [facility] at [facility]67/08/2020 - Kaur Asher, NPM86.672 Other chronic osteomyelitis, left ankle and footNew Labs:C Reactive Protein, Ordered: 08/12/19Comments:Please call the office with any concerns or questions, redness , swelling or drainage from the site.Follow up:as needed.Z89.512 Acquired absence of left leg below knee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 Functional Status Description No Information Available Mental Status Description No Information Available Referrals Description No Information Available
[2019-09-06 16:06] VITALS: BP 159/99
--- NOTE | 2019-09-06 16:16 | UC ---
Ear Complaint HPI - HPI Summary HPI Summary: Last night started w/ L ear discomfort and muffled hearing. He got tubes placed last summer. denies fever. - History of Current Complaint Chief Complaint: UCEar Stated Complaint: LEFT EAR PAIN Time Seen by Provider: 09/06/19 15:58 Hx Obtained From: Patient Pain Intensity: 5 Pain Scale Used: 0-10 Numeric Aggravating Factors: Nothing Alleviating Factors: Nothing - Allergies/Home Medications Allergies/Adverse Reactions: Allergies Allergy/AdvReac Type Severity Reaction Status Date / Time adhesive tape Allergy "SKIN Verified 09/06/19 15:58 BREAKS OUT" Sulfa (Sulfonamide Allergy Rash Verified 09/06/19 15:58 Antibiotics) Home Medications: Home Medications Hydrocodone/Acetaminophen [Hydrocodone/Acetaminophen 5-325 mg] 1 tab PO Q6H PRN 09/06/19 [History Confirmed 09/06/19] PMH/Surg Hx/FS Hx/Imm Hx - Additional Past Medical History Additional PMH: amputee Previously Healthy: Yes - Surgical History Surgical History: Yes Surgery Procedure, Year, and Place: umbilical hernia repair A [facility]. tooth extraction. 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 R great toe amputation 05/2018 - Social History Alcohol Use: None Substance Use Type: None Smoking Status (MU): Never Smoked Tobacco - Immunization History Most Recent Influenza Vaccination: 05/15/19 Most Recent Pneumonia Vaccination: 05/17/2015 Review of Systems All Other Systems Reviewed And Are Negative: Yes Constitutional: Negative: Fever, Chills Skin: Negative: Rash ENT: Positive: Ear Ache - L Neurological: Positive: Other - L muffled hearing.. Negative: Headache Physical Exam Triage Information Reviewed: Yes Appearance: Well-Appearing, Other: - IN A WHEELCHAIR Vital Signs: Initial Vital Signs Temp 97.8 F 09/06/19 16:01 Pulse 94 09/06/19 16:01 Resp 18 09/06/19 16:01 BP 159/99 09/06/19 16:01 Pulse Ox 99 09/06/19 16:01 Vital Signs Reviewed: Yes Eyes: Positive: Conjunctiva Clear ENT: Positive: Pharynx normal, TMs normal, Other - Both TMs have ear tubes. L canal initially had impacted cerumen. Neck: Positive: Supple Respiratory: Positive: No respiratory distress Ear Complaint Course/Dx - Course Course Of Treatment: L impacted cerumen which we were able to flush. a Tube was still intact in L TM. Symptoms improved after flush. - Differential Dx/Diagnosis Differential Diagnosis/HQI/PQRI: Cerumen Impaction, URI, Other Provider Diagnosis: Impacted cerumen Discharge ED - Sign-Out/Discharge Documenting (check all that apply): Patient Departure All imaging exams completed and their final reports reviewed: No Studies - Discharge Plan Condition: Good Disposition: HOME Patient Education Materials: Cerumen Impaction (ED) Referrals: Gwyn Jauregui MD [Primary Care Provider] - Additional Instructions: Your blood pressure is a bit elevated. Please speak to your pcp about this. - Billing Disposition and Condition Condition: GOOD Disposition: Home
== END 2019-09-06 16:39 | disposition home or self-care (01) ==
LOC: UCCORT 14:13
DX: H61.22 Impacted cerumen, left ear (principal); Z91.09 Other allergy status, other than to drugs and biological substances; Z88.2 Allergy status to sulfonamides
CPT/HCPCS: 99212; G0463